=== PATIENT | male | born 1965 | race Caucasian/White ===

== ENCOUNTER → 2016-07-08 | Outpatient (CLI) | payer MEDICAID | LOC: OD 13:49 | PROVIDERS: ATTEND Physician Assistant Medical | DX: R06.02 Shortness of breath (principal) | CPT/HCPCS: 71020 ==

== ENCOUNTER 2016-09-28 20:07 | Emergency (ER) | payer MEDICARE, MEDICAID ==
[2016-09-28] MEDS ORDERED: ONDANSETRON HCL INJ/PF 4 MG/2 ML SDV IV ONE (20:49)
[2016-09-28] MEDS ORDERED: NORMAL SALINE 1000 ML 1,000 ML IV PRN ×2 (20:49→22:55)
--- NOTE | 2016-09-28 20:55 | ER Document Report ---
ED General - General Chief Complaint: Headache Stated Complaint: HEADACHE,GENERALIZED WEAKNESS Time seen by provider: 20:52 Mode of Arrival: Medic Information source: Patient TRAVEL OUTSIDE OF THE [place] IN LAST 30 DAYS: No - HPI Patient complains to provider of: headache, generalized weakness, fatigue Onset: This morning Onset/Duration: Persistent Quality of pain: Achy Severity: Mild Pain Level: 1 Associated symptoms: Body/muscle aches, Nonproductive cough, Weakness Exacerbated by: Denies Relieved by: Denies Similar symptoms previously: No Recently seen / treated by doctor: No Notes: Patient is a 51-year-old male who presents to the emergency room via EMS for complaints of generalized weakness that started approximately 30 minutes after waking up running taking this morning medications, reports feeling jittery and nervous, with diffuse body aches and malaise, as well as a sore throat with difficulty swallowing, and a headache with pressure behind his eyes that radiates to the back of his head worsens when he coughs, he reports a nonproductive cough, no chest pain or shortness of breath, no sick contacts, no recent travel - Related Data Allergies/Adverse Reactions: sumatriptan [From Imitrex] Allergy (Verified 09/28/16 20:23) tramadol [From Ultram] Allergy (Verified 09/28/16 20:23) Home Medications: Current Home Medications Amlodipine Besylate [Amlodipine Besylate] 10 mg PO DAILY 09/28/16 [History] Bupropion HCl [Wellbutrin Xl] 150 mg PO DAILY 09/28/16 [History] Buspirone HCl [Buspar 5 mg Tablet] 1 tab PO DAILY 09/28/16 [History] Citalopram Hydrobromide [Celexa 20 mg Tablet] 20 mg PO QHS 09/28/16 [History] Furosemide [Furosemide] 40 mg PO QAM 09/28/16 [History] Hydralazine HCl [Apresoline 50 mg Tablet] 50 mg PO DAILY 09/28/16 [History] Lovastatin 40 mg PO BID 09/28/16 [History] Omeprazole 40 mg PO BID 09/28/16 [History] Oxycodone HCl [Oxycontin] 20 mg PO BID 09/28/16 [History] Pregabalin [Lyrica] 150 mg PO BID 09/28/16 [History] Past Medical History - General Information source: Patient - Social History Smoking Status: Current Every Day Smoker Frequency of alcohol use: None Drug Abuse: None Family History: Reviewed & Not Pertinent - Past Medical History Cardiac Medical History: Reports: Hx Hypertension Review of Systems - Review of Systems Constitutional: See HPI EENT: No symptoms reported Cardiovascular: No symptoms reported Respiratory: See HPI Gastrointestinal: No symptoms reported Genitourinary: No symptoms reported Male Genitourinary: No symptoms reported Musculoskeletal: See HPI Skin: No symptoms reported Hematologic/Lymphatic: No symptoms reported Neurological/Psychological: See HPI -: Yes All other systems reviewed and negative Physical Exam - Vital signs Vitals: Resp BP Pulse Ox 14 135/84 H 95 09/28/16 20:19 09/28/16 20:19 09/28/16 20:19 Interpretation: Normal - General General appearance: Appears well, Alert - HEENT Head: Normocephalic, Atraumatic Eyes: Normal Pupils: PERRL Mouth/Lips: Normal Mucous membranes: Normal Pharynx: Erythema Neck: Normal - Respiratory Respiratory status: No respiratory distress Chest status: Nontender Breath sounds: Normal Chest palpation: Normal - Cardiovascular Rhythm: Regular, Tachycardia Heart sounds: Normal auscultation Murmur: No - Abdominal Inspection: Normal Distension: No distension Bowel sounds: Normal Tenderness: Tender - Epigastric Organomegaly: No organomegaly - Back Back: Normal, Nontender - Extremities General upper extremity: Normal inspection, Nontender, Normal color, Normal ROM , Normal temperature General lower extremity: Normal temperature. No: Prabhu's sign Notes: Right-sided BKA, 3 cm erythematous ulceration on the lateral portion of the stump, no active drainage, no surrounding erythema, no change in temperature, sensation is intact - Neurological Neuro grossly intact: Yes Cognition: Normal Orientation: AAOx4 [place] Coma Scale Eye Opening: Spontaneous Andrew Coma Scale Verbal: Oriented [place] Coma Scale Motor: Obeys Commands Andrew Coma Scale Total: 15 Speech: Normal Motor strength normal: LUE, RUE, LLE, RLE Sensory: Normal - Psychological Associated symptoms: Normal affect, Normal mood - Skin Skin Temperature: Warm Skin Moisture: Dry Skin Color: Normal Course - Re-evaluation Re-evalutation: 09/28/16 22:55 Patient reports his headache continues, he denies any other symptoms at present time, lab and imaging findings were discussed with him at bedside, he will be given additional IV fluids and medications for treatment of his headache, and likely discharged, patient is noted to have leukocytosis, has a productive cough , and is a smoker, symptoms otherwise consistent with likely bronchitis 09/29/16 00:08 Patient resting comfortably, reports feeling much better, headache is resolved, he will be discharged with prescriptions and advised to follow-up with his primary care provider or return if symptoms worsen, patient acknowledges understanding and agreement with this plan 09/29/16 00:12 Patient did also report to recent tick bites, therefore will be started on doxycycline for this - Vital Signs Vital signs: Temp Pulse Resp BP Pulse Ox 95 16 135/84 H 98 09/28/16 21:02 09/28/16 21:02 09/28/16 21:02 09/28/16 21:02 - Laboratory Result Diagrams: 09/28/16 20:19 09/28/16 20:19 Laboratory results interpreted by me: 09/28/16 09/28/16 20:19 20:19 WBC 11.4 H Seg Neutrophils % 84.4 H Lymphocytes % 8.4 L Absolute Neutrophils 9.7 H AST 88 H ALT 110 H Alkaline Phosphatase 158 H - Diagnostic Test Radiology reviewed: Image reviewed, Reports reviewed - EKG Interpretation by Me EKG shows normal: Sinus rhythm Rate: Normal Rhythm: NSR Discharge - Discharge Clinical Impression: Viral upper respiratory illness Tick bite Qualifiers: Encounter type: initial encounter Qualified Code(s): W57.XXXA - Bitten or stung by nonvenomous insect and other nonvenomous arthropods, initial encounter Headache Qualifiers: Headache type: unspecified Headache chronicity pattern: acute headache Intractability: not intractable Qualified Code(s): R51 - Headache Condition: Stable Disposition: HOME, SELF-CARE Instructions: Headache ([facility]), Upper Respiratory Illness ([facility]), Tick Bites ([facility]) Additional Instructions: Follow up with your primary care provider in one to 2 days. Return to the emergency room immediately if symptoms worsen or any additional concerns. Prescriptions: Doxycycline Hyclate 100 mg PO BID #20 tablet Forms: Smoking Cessation Education
[2016-09-28 20:58] LABS: ABSOLUTE BASOPHILS # (AUTO) 0.1 10^3/uL (0.0-0.2); ABSOLUTE EOSINOPHILS # (AUTO) 0.1 10^3/uL (0.0-0.6); ABSOLUTE MONOCYTES (AUTO) 0.6 10^3/uL (0.1-1.4); ABSOLUTE NEUT (AUTO) 9.7 10^3/uL (1.7-8.2); BASOPHILS % (AUTO) 0.5 % (0-2); EOSINOPHILS % (AUTO) 1.1 % (0-6); HEMATOCRIT 44.3 % (37.9-51.0); HEMOGLOBIN 15.1 g/dL (13.5-17.0); LYMPHOCYTES % (AUTO) 8.4 % (13-45); MEAN CORPUSCULAR HEMOGLOBIN 31.3 pg (27.0-33.4); MEAN CORPUSCULAR HGB CONC 34.2 g/dL (32.0-36.0); MEAN CORPUSCULAR VOLUME 91 fl (80-97); MONOCYTES % (AUTO) 5.6 % (3-13); RED BLOOD COUNT 4.84 10^6/uL (4.35-5.55); RED CELL DISTRIBUTION WIDTH 13.7 % (11.5-14.0); SEGMENTED NEUTROPHILS % (AUTO) 84.4 % (42-78); WHITE BLOOD COUNT 11.4 10^3/uL (4.0-10.5)
[2016-09-28 21:13] LABS: ALANINE AMINOTRANSFERASE 110 U/L (21-72); ALBUMIN 4.2 g/dL (3.5-5.0); ALKALINE PHOSPHATASE 158 U/L (38-126); ANION GAP 13 (5-19); ASPARTATE AMINO TRANSFERASE 88 U/L (17-59); BILIRUBIN,DIRECT 0.4 mg/dL (0.0-0.4); BILIRUBIN,TOTAL 0.7 mg/dL (0.2-1.3); BLOOD UREA NITROGEN 18 mg/dL (7-20); CALCIUM 9.5 mg/dL (8.4-10.2); CARBON DIOXIDE 29 mmol/L (22-30); CHLORIDE 103 mmol/L (98-107); CREATINE KINASE 112 U/L (55-170); CREATININE RESULT 0.94 mg/dL (0.52-1.25); GLUCOSE 88 mg/dL (75-110); MAGNESIUM 2.1 mg/dL (1.6-2.3); POTASSIUM 4.2 mmol/L (3.6-5.0); SODIUM 144.8 mmol/L (137-145); TOTAL PROTEIN 7.3 g/dL (6.3-8.2)
[2016-09-28 21:23] LABS: CREATINE KINASE MB 0.75 ng/mL (<4.55)
[2016-09-28 21:27] LABS: TROPONIN I < 0.012 ng/mL
[2016-09-28 21:33] LABS: AMORPHOUS SEDIMENT,URINE 2+ /HPF; APPEARANCE,URINE CLOUDY; BILIRUBIN,URINE NEGATIVE (NEGATIVE); GLUCOSE, URINE NEGATIVE (NEGATIVE); KETONES,URINE NEGATIVE (NEGATIVE); LEUKOCYTE ESTERASE,URINE NEGATIVE (NEGATIVE); NITRITE,URINE NEGATIVE (NEGATIVE); PROTEIN,URINE NEGATIVE (NEGATIVE); URINE SPECIFIC GRAVITY 1.014; UROBILINOGEN,URINE NEGATIVE mg/dL (<2.0)
[2016-09-28] MEDS ORDERED: DIPHENHYDRAMINE HCL 50 MG/ML VIAL IV ONE (22:55)
[2016-09-28] MEDS ORDERED: METOCLOPRAMIDE HCL INJ/PF 10 MG/2 ML SDV IV ONE (22:55)
[2016-09-28] MEDS ORDERED: MORPHINE SULFATE 10 MG/ML INJ IV ONE (22:55)
[2016-09-29 00:25] VITALS: BP 104/68
--- NOTE | 2016-09-29 10:22 | EKG REPORT ---
SEVERITY:- NORMAL ECG - SINUS RHYTHM : Confirmed by: Stu Pedraza 29-Sep-2016 10:22:37
== END 2016-09-29 00:36 | disposition home or self-care (01) ==
LOC: ER 20:07
DX: J06.9 Acute upper respiratory infection, unspecified (principal); R51 Headache; R53.1 Weakness; R05 Cough; R53.81 Other malaise; Z79.899 Other long term (current) drug therapy; F17.200 Nicotine dependence, unspecified, uncomplicated; W57.XXXA Bitten or stung by nonvenomous insect and other nonvenomous arthropods, initial encounter
CPT/HCPCS: 93005; 99285; 96361; 96374; 96375; 36415; 87070; 82553; 87880; 82550; 83735; 85025; 80053; 81001; 84484; 71010; 70450; 93010; J1200; J2765; J2270; J2405; J7030

== ENCOUNTER 2017-01-05 07:40 | Emergency (ER) | payer MEDICARE, MEDICAID ==
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
[2017-01-05] MEDS ORDERED: DIPH/PERTUSS(ACELL)/TETANUS VAC/PF 0.5 ML SYR (>=10YO) IM ONE (09:38)
[2017-01-05] MEDS ORDERED: HYDROCODONE/ACETAMINOPHEN 5-325 MG 6 TAB/DSPK PO PRN (09:38)
[2017-01-05 10:08] VITALS: BP 142/89
== END 2017-01-05 10:07 | disposition home or self-care (01) ==
LOC: ER 07:40
DX: S00.511A Abrasion of lip, initial encounter (principal); R68.84 Jaw pain; M54.2 Cervicalgia; R51 Headache; R22.0 Localized swelling, mass and lump, head; Y04.2XXA Assault by strike against or bumped into by another person, initial encounter; Y93.01 Activity, walking, marching and hiking; Y92.480 Sidewalk as the place of occurrence of the external cause; R41.3 Other amnesia; I10 Essential (primary) hypertension; F17.200 Nicotine dependence, unspecified, uncomplicated; Z79.82 Long term (current) use of aspirin; Z79.899 Other long term (current) drug therapy; Z88.6 Allergy status to analgesic agent; Z88.5 Allergy status to narcotic agent; Z23 Encounter for immunization
CPT/HCPCS: 99284; 90471; 70450; 70486; 72125; 90715; A9270

== ENCOUNTER 2017-07-07 13:27 | Emergency (ER) | payer MEDICARE, MEDICAID ==
[2017-07-07] MEDS ORDERED: MORPHINE SULFATE 10 MG/ML INJ IV ONE (13:57)
[2017-07-07] MEDS ORDERED: ONDANSETRON HCL INJ/PF 4 MG/2 ML SDV IV ONE (13:57)
[2017-07-07] MEDS ORDERED: NORMAL SALINE 1000 ML 1,000 ML IV ONE (13:57)
--- NOTE | 2017-07-07 13:58 | ER Document Report ---
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 He has not had any surgeries for any type of aneurysms. He states he was awoke in the middle the night with severe left lower quadrant abdominal pain that radiates to his back. He has had some nausea. He has had decreased appetite. He has had no bowel movements. No trouble with urination. TRAVEL OUTSIDE OF THE [place] IN LAST 30 DAYS: No - Related Data Allergies/Adverse Reactions: sumatriptan [From Imitrex] Allergy (Verified 07/07/17 13:29) tramadol [From Ultram] Allergy (Verified 07/07/17 13:29) Past Medical History - Social History Frequency of alcohol use: None Drug Abuse: None - Past Medical History Cardiac Medical History: Reports: Hx Hypercholesterolemia, Hx Hypertension Pulmonary Medical History: Reports: Hx Asthma Renal/ Medical History: Denies: Hx Peritoneal Dialysis Past Surgical History: Reports: Hx Cholecystectomy, Hx Orthopedic Surgery - Right BKA Physical Exam - Vital signs Vitals: Temp Pulse Resp BP Pulse Ox 98.2 F 83 18 190/110 H 96 07/07/17 13:44 07/07/17 13:44 07/07/17 13:44 07/07/17 13:44 07/07/17 13:44 Course - Vital Signs Vital signs: Temp Pulse Resp BP Pulse Ox 98.2 F 83 18 190/110 H 96 07/07/17 13:44 07/07/17 13:44 07/07/17 13:44 07/07/17 13:44 07/07/17 13:44
[2017-07-07] MEDS ORDERED: HYDROMORPHONE HCL INJ/PF 2 MG/ML AMPULE IV ONE (14:35)
[2017-07-07 14:50] LABS: ABSOLUTE BASOPHILS # (AUTO) 0.1 10^3/uL (0.0-0.2); ABSOLUTE LYMPHOCYTES (AUTO) 0.6 10^3/uL (0.5-4.7); ABSOLUTE MONOCYTES (AUTO) 0.8 10^3/uL (0.1-1.4); ABSOLUTE NEUT (AUTO) 9.3 10^3/uL (1.7-8.2); BASOPHILS % (AUTO) 0.9 % (0-2); EOSINOPHILS % (AUTO) 0.3 % (0-6); HEMATOCRIT 47.1 % (37.9-51.0); HEMOGLOBIN 16.6 g/dL (13.5-17.0); LYMPHOCYTES % (AUTO) 5.8 % (13-45); MEAN CORPUSCULAR HEMOGLOBIN 32.5 pg (27.0-33.4); MEAN CORPUSCULAR HGB CONC 35.3 g/dL (32.0-36.0); MEAN CORPUSCULAR VOLUME 92 fl (80-97); MONOCYTES % (AUTO) 7.2 % (3-13); PLATELET COUNT 175 10^3/uL (150-450); RED BLOOD COUNT 5.12 10^6/uL (4.35-5.55); RED CELL DISTRIBUTION WIDTH 13.5 % (11.5-14.0); SEGMENTED NEUTROPHILS % (AUTO) 85.8 % (42-78); TOTAL CELLS COUNTED % (AUTO) 100 %; WHITE BLOOD COUNT 10.9 10^3/uL (4.0-10.5)
--- NOTE | 2017-07-07 14:54 | ER Document Report ---
ED GI/ - General Chief Complaint: Abdominal Pain Stated Complaint: ABDOMINAL PAIN, BACK PAIN Time Seen by Provider: 07/07/17 13:56 Mode of Arrival: Ambulatory Notes: Patient says he is having pain in the left lower quadrant of his abdomen which awakened him from sleep this morning. It has been constant and does radiate around to the left back. He has never had this pain before. He has had kidney stones in the past, but never this severe of pain. He is nauseated but not vomiting. No diarrhea. Not constipated. Denies any fever. Not sure if he is having any blood in his urine. Patient is had cholecystectomy and no other surgical procedures. History of some heart disease with a heart attack many years ago and a cardiac cath about 15 years ago. Hypertension. Smokes 1 pack a day. TRAVEL OUTSIDE OF THE [place] IN LAST 30 DAYS: No - Related Data Allergies/Adverse Reactions: sumatriptan [From Imitrex] Allergy (Verified 07/07/17 13:29) tramadol [From Ultram] Allergy (Verified 07/07/17 13:29) Past Medical History - General Information source: Patient - Social History Smoking Status: Current Every Day Smoker - 1 pack per day Frequency of alcohol use: None Drug Abuse: None Family History: Reviewed & Not Pertinent Patient has suicidal ideation: No Patient has homicidal ideation: No - Past Medical History Cardiac Medical History: Reports: Hx Hypercholesterolemia, Hx Hypertension Pulmonary Medical History: Reports: Hx Asthma GI Medical History: Denies: Hx Diverticulitis, Hx Pancreatitis, Hx Ulcerative Colitis Past Surgical History: Reports: Hx Cholecystectomy, Hx Orthopedic Surgery - Right BKA Review of Systems - Review of Systems Notes: REVIEW OF SYSTEMS: CONSTITUTIONAL : Denies fever. EENT: Denies eye, ear, nose or mouth or throat pain or other symptoms. CARDIOVASCULAR: Denies chest pain. RESPIRATORY: Denies cough, chest congestion, or shortness of breath. GASTROINTESTINAL: See HPI GENITOURINARY: See HPI. MUSCULOSKELETAL: Denies back or neck pain. Denies joint pain or swelling. SKIN: Denies rash or skin lesions. NEUROLOGICAL: Denies LOC or altered mental status. Denies headache. Denies sensory loss or motor deficits. ALL OTHER SYSTEMS REVIEWED AND NEGATIVE. Physical Exam - Vital signs Vitals: Temp Pulse Resp BP Pulse Ox 98.2 F 83 18 190/110 H 96 07/07/17 13:44 07/07/17 13:44 07/07/17 13:44 07/07/17 13:44 07/07/17 13:44 Interpretation: Hypertensive - Notes Notes: PHYSICAL EXAMINATION: GENERAL: Well-appearing, in no acute distress. Appears uncomfortable. Blood pressure high. HEAD: Atraumatic, normocephalic. NECK: Normal range of motion, supple. LUNGS: Breath sounds clear and equal bilaterally. HEART: Regular rate and rhythm without murmurs. ABDOMEN: Soft, obese, tender in the left lower quadrant and left lateral abdomen. No tenderness to the right of the umbilicus.. No guarding or rebound. No masses. No bruits heard. BACK: No tenderness throughout entire back. EXTREMITIES: Normal range of motion without pain. Right BKA amputation. NEUROLOGICAL: Normal speech, normal gait. Normal sensory, motor, and reflex exams. Awake, alert, and oriented x3. Cranial nerves normal. SKIN: Warm, dry, no rashes. Course - Re-evaluation Re-evalutation: 07/07/17 20:[address] scan shows a 1.4 cm stone in the upper pelvic ureteral junction with moderate hydronephrosis. Patient's urine does not show any evidence of infection. White count is not significantly elevated and the patient is afebrile. Spoke with Dr. Carranza who is on-call for urology at [facility], where this patient receives most of his medical care and he felt the patient could be discharged with pain control and follow-up in the office as an outpatient. I agree with this assessment and plan and the patient was made aware. It was incidentally noted that the patient has a 5 cm abdominal aortic aneurysm without apparent symptoms at this time. He is being followed for this aneurysm by the vascular surgeons in [place]. I spoke with Dr. Hanson, who is on- call for this patient's vascular surgeon, and he says that their office will contact the patient tomorrow to set up a plan to take care of his aneurysm. Patient made aware of this plan and that he needs to be sure that they follow up with him or call them himself to arrange follow-up. 07/07/17 20:18 - Vital Signs Vital signs: Temp Pulse Resp BP Pulse Ox 97.8 F 83 20 160/100 H 92 07/07/17 20:30 07/07/17 13:44 07/07/17 20:01 07/07/17 20:01 07/07/17 20:01 - Laboratory Result Diagrams: 07/07/17 14:20 07/07/17 14:20 Laboratory results interpreted by me: 07/07/17 07/07/17 07/07/17 14:20 14:20 14:20 WBC 10.9 H Seg Neutrophils % 85.8 H Lymphocytes % 5.8 L Absolute Neutrophils 9.3 H Chloride 108 H Creatinine 1.35 H Est GFR (Non-Af Amer) 56 L Alkaline Phosphatase 131 H Urine Urobilinogen 2.0 H Discharge - Discharge Clinical Impression: Left ureteral calculus, Abdominal aortic aneurysm Condition: Stable Disposition: HOME, SELF-CARE Additional Instructions: KIDNEY STONE: You are passing or have passed a kidney stone. These stones are usually due to increased calcium or uric acid concentrations in your urine. Stones within the kidney itself are not painful. The pain occurs as the stone leaves the kidney to pass down the long tube, called the ureter, leading to the bladder. If the stone is small, it will usually pass by itself. Most patients can pass the stone at home. You will usually receive medications for pain, nausea or vomiting, and sometimes a medication to assist in passing the kidney stone. However, if the pain is very severe or if vomiting prevents you from taking oral pain medications, you may need to return for further treatment. Drink three or four quarts of fluids per day. You will be given pain medication (if needed) and urine strainers. Strain all your urine to see if the stone passes. If your doctor has asked you to bring the stone in for analysis, return with the stone once it has passed. Return if pain or vomiting become severe, if you develop a high fever, if you are unable to pass your urine, or if other unusual symptoms occur. You have a very large kidney stone which will not pass on its own. You are going to need a procedure to get that kidney stone out. I spoke with Dr. Carranza , urologist monument erector for [facility], and he said they will follow you up in their office. TORADOL INJECTION: You have been given an injection of ketorolac tromethamine (Toradol). This is an excellent, safe drug for pain control. It also has potent antiinflammatory action. You should have significant pain relief within about one hour. Toradol is not addicting and is non-sedating. It does not interfere with driving or work. Call or return if you develop itching, hives, shortness of breath, or rash. PAIN MEDICATION INJECTION: You have received an injection of a pain medication. You should experience significant pain relief within 45 minutes. This drug is a narcotic - - it will impair your judgement, slow your reaction time and make you sleepy ( as well as relieve your pain). Narcotics also can cause nausea. You should not drive, work with machinery, or perform any task requiring mental alertness until all effects of the medication are gone -- six to eight hours. Do not take any alcohol, or sedatives, and do not take any other medication without checking with your physician. ANTINAUSEA MEDICATION: You have been given a medication to suppress nausea and vomiting. This type of medication can be given as a shot, pill, or suppository. It will usually last for many hours. Pills and shots usually last six to eight hours, suppositories last about 12 hours. For the typical illness, only one or two doses of the medication may be necessary. Mild lightheadedness may occur. This type of medicine can cause drowsiness. Do not drive or operate dangerous machinery while under its influence. Do not mix with alcohol. See your doctor at once if you have muscle spasms or tightness, or uncontrollable motions (particularly of the neck, mouth, or jaw). Persistent vomiting or severe lightheadedness should also be evaluated by the physician. ORAL NARCOTIC MEDICATION: You have been given a prescription for pain control. This medication is a narcotic. It's best taken with food, as nausea can result if taken on an empty stomach. Don't operate machinery or drive within six hours of taking this medication. Do not combine this medicine with alcohol, or with any medication which can cause sedation (such as cold tablets or sleeping pills) unless you get permission from the physician. Narcotics tend to cause constipation. If possible, drink plenty of fluids and eat a diet high in fiber and fruits. Aortic Aneurysm This is a dilation of the aorta. About 1 of every 50 people develop an aortic aneurysm. The aneurysm can be dangerous if it begins to expand, or ruptures. At this time, there's no immediate danger. If an aortic aneurysm is small (less than two inches in width), we can just check the aneurysm again in a few months. Usually, we do this with an ultrasound or CT scan. If the aneurysm is large, the danger of rupture increases dramatically. Rupture is usually fatal. So large aneurysms are fixed with surgery. We'll arrange for you to see a specialist for repair of your aneurysm. Return at once if you develop abdominal pain, back pain, or lightheadedness , or if you feel a new mass in your abdomen. Your aneurysm has reached 5 cm in diameter which is the point at which you need to have something done about the aortic aneurysm. I have spoken with the vascular surgeon, , who is on-call for your doctor and he says that their office will contact you with the number you provided me in the next day or 2 to set up an appointment for you to be followed up. FOLLOW-UP CARE: If you have been referred to a physician for follow-up care, call the physician s office for an appointment as you were instructed or within the next two days. If you experience worsening or a significant change in your symptoms, notify the physician immediately or return to the Emergency Department at any time for re-evaluation. You should return if you have vomiting and cannot keep down your pain medicine, if you are not able to control your pain with the pain pills prescribed, or if you begin to run fevers. Prescriptions: Ondansetron [Zofran Odt 4 mg Tablet] 1 - 2 tab PO Q4H PRN #15 tab.rapdis PRN Reason: For Nausea/Vomiting Oxycodone HCl/Acetaminophen [Percocet 5-325 mg Tablet] 1 - 2 tab PO Q4H PRN #40 tablet PRN Reason:
[2017-07-07] MEDS ORDERED: KETOROLAC TROMETHAMINE INJ/PF 30 MG/1 ML SDV IV ONE (14:55)
[2017-07-07 14:58] LABS: AMORPHOUS SEDIMENT,URINE TRACE /HPF; APPEARANCE,URINE CLOUDY; BILIRUBIN,URINE NEGATIVE (NEGATIVE); COLOR,URINE YELLOW; GLUCOSE, URINE NEGATIVE (NEGATIVE); KETONES,URINE NEGATIVE (NEGATIVE); LEUKOCYTE ESTERASE,URINE NEGATIVE (NEGATIVE); NITRITE,URINE NEGATIVE (NEGATIVE); PROTEIN,URINE NEGATIVE (NEGATIVE); URINE SPECIFIC GRAVITY 1.017
[2017-07-07 15:08] LABS: ALANINE AMINOTRANSFERASE 41 U/L (21-72); ALBUMIN 4.2 g/dL (3.5-5.0); ALKALINE PHOSPHATASE 131 U/L (38-126); ANION GAP 7 (5-19); ASPARTATE AMINO TRANSFERASE 27 U/L (17-59); BILIRUBIN,DIRECT 0.4 mg/dL (0.0-0.4); BILIRUBIN,TOTAL 0.4 mg/dL (0.2-1.3); BLOOD UREA NITROGEN 16 mg/dL (7-20); CALCIUM 9.6 mg/dL (8.4-10.2); CARBON DIOXIDE 27 mmol/L (22-30); CHLORIDE 108 mmol/L (98-107); GLUCOSE 92 mg/dL (75-110); SODIUM 141.5 mmol/L (137-145); TOTAL PROTEIN 7.4 g/dL (6.3-8.2)
[2017-07-07] MEDS ORDERED: CEFTRIAXONE INJ 1000 MG VIAL IV ONE (17:25)
--- NOTE | 2017-07-07 18:18 | RADIOLOGY REPORT (SQ) ---
EXAM DESCRIPTION: CT ABD/PELVIS WITH IV ORAL COMPLETED DATE/TIME: 07/07/2017 5:57 pm REASON FOR STUDY: LLQ pain COMPARISON: 06/18/2009. TECHNIQUE: CT scan of the abdomen and pelvis performed with intravenous and oral contrast using chirag dhiraj scanning technique with dynamic intravenous contrast injection. Images reviewed with lung, soft t issue, and bone windows. Reconstructed coronal and sagittal MPR images reviewed. Delayed images for e valuation of the urinary system also acquired. All images stored on PACS. All CT scanners at this facility use dose modulation, iterative reconstruction, and/or weight based d osing when appropriate to reduce radiation dose to as low as reasonably achievable (ALARA). [facility]: Dose Right [facility]: CareDose [facility]: Dose Right [facility]: Teradose 4D [facility]: [employer] CONTRAST TYPE AND DOSE: contrast/concentration: Isovue 370.00 mg/ml; Total Contrast Delivered: 98.0 ml; Total Saline Delivered: 45.0 ml RENAL FUNCTION: Creatinine 1.4 RADIATION DOSE: CT Rad equipment meets quality standard of care and radiation dose reduction techniq ues were employed. CTDIvol: 16.2 - 18.2 mGy. DLP: 1861 mGy-cm.. LIMITATIONS: None. FINDINGS: LOWER CHEST: Mild basilar scarring and volume loss. LIVER: Status post cholecystectomy with minimal intrahepatic bile duct distention. Slight common bhupinder t distention as well. Otherwise normal. SPLEEN: Normal size. No focal lesions. PANCREAS: No masses. No significant calcifications. No adjacent inflammation or peripancreatic fluid collections. Pancreatic duct not dilated. GALLBLADDER: As above. ADRENAL GLANDS: No significant masses or asymmetry. RIGHT KIDNEY AND URETER: No solid masses. No significant calcification. No hydronephrosis or hydroure ter. LEFT KIDNEY AND URETER: Renal edema, enlargement and stranding with generalized hypoenhancement. The re is moderate hydronephrosis with lack of excretion due to a stone at the pelvic-ureter junction whi ch measures 1.4 cm and greatest dimension and has Hounsfield units greater than 1,300. Several addit ional smaller nonobstructing stones in the kidney. No stones along the ureter. AORTA AND VESSELS: Infrarenal abdominal aortic aneurysm measures 5 cm. This has increased in size co mpared to the prior study at which time maximal transverse dimension was just at 3 cm. Patent major arterial and venous structures. RETROPERITONEUM: No retroperitoneal adenopathy, hemorrhage or masses. BOWEL AND PERITONEAL CAVITY: No obstruction. No visualized masses. No free fluid. No inflammatory ch anges or thickening of bowel wall. APPENDIX: Normal. PELVIS: No bladder stones. No pelvic mass or fluid. ABDOMINAL WALL: No masses. No hernias. BONES: No significant or acute findings. OTHER: No other significant finding. IMPRESSION: 1. Left urinary obstruction. There is a sizable UPJ stone with moderate hydronephrosis, perinephric stranding and diminished enhancement with lack of urinary excretion. Additional nonobst ructing left stones are also present. 2. Infrarenal abdominal aortic aneurysm measures 5 cm. This h as increased in size compared to 2010. TECHNICAL DOCUMENTATION: JOB ID: [id number] Quality ID # 436: Final reports with documentation of one or more dose reduction techniques (e.g., Au tomated exposure control, adjustment of the mA and/or kV according to patient size, use of iterative reconstruction technique) 2010 [email or web address]- All Rights Reserved
[2017-07-07] MEDS ORDERED: CEFTRIAXONE SODIUM 1,000 MG in NORMAL SALINE 50 ML IV ONE (20:00)
[2017-07-07 20:30] VITALS: BP 160/100
== END 2017-07-07 20:35 | disposition home or self-care (01) ==
LOC: ER 13:27
DX: I71.4 Abdominal aortic aneurysm, without rupture (principal); N20.1 Calculus of ureter; M54.9 Dorsalgia, unspecified; R10.32 Left lower quadrant pain; R11.0 Nausea; Z90.49 Acquired absence of other specified parts of digestive tract; F17.200 Nicotine dependence, unspecified, uncomplicated
CPT/HCPCS: 99284; 96361; 96374; 96375; 36415; 83690; 85025; 80053; 81001; 74177; J1885; J1170; J2405; J7030

== ENCOUNTER 2017-07-29 19:56 | Emergency (ER) | payer MEDICARE, MEDICAID ==
[2017-07-29 21:08] LABS: ABSOLUTE BASOPHILS # (AUTO) 0.2 10^3/uL (0.0-0.2); ABSOLUTE EOSINOPHILS # (AUTO) 0.2 10^3/uL (0.0-0.6); ABSOLUTE LYMPHOCYTES (AUTO) 1.7 10^3/uL (0.5-4.7); ABSOLUTE MONOCYTES (AUTO) 0.9 10^3/uL (0.1-1.4); ABSOLUTE NEUT (AUTO) 9.8 10^3/uL (1.7-8.2); BASOPHILS % (AUTO) 1.3 % (0-2); EOSINOPHILS % (AUTO) 1.7 % (0-6); HEMATOCRIT 50.6 % (37.9-51.0); HEMOGLOBIN 17.8 g/dL (13.5-17.0); LYMPHOCYTES % (AUTO) 13.2 % (13-45); MEAN CORPUSCULAR HEMOGLOBIN 32.3 pg (27.0-33.4); MEAN CORPUSCULAR HGB CONC 35.1 g/dL (32.0-36.0); MEAN CORPUSCULAR VOLUME 92 fl (80-97); MONOCYTES % (AUTO) 7.3 % (3-13); PLATELET COUNT 233 10^3/uL (150-450); RED CELL DISTRIBUTION WIDTH 13.8 % (11.5-14.0); SEGMENTED NEUTROPHILS % (AUTO) 76.5 % (42-78); TOTAL CELLS COUNTED % (AUTO) 100 %; WHITE BLOOD COUNT 12.8 10^3/uL (4.0-10.5)
[2017-07-29 21:19] LABS: ANION GAP 13 (5-19); BLOOD UREA NITROGEN 28 mg/dL (7-20); CALCIUM 9.7 mg/dL (8.4-10.2); CARBON DIOXIDE 27 mmol/L (22-30); CHLORIDE 100 mmol/L (98-107); GLUCOSE 120 mg/dL (75-110); POTASSIUM 3.7 mmol/L (3.6-5.0); SODIUM 139.7 mmol/L (137-145)
--- NOTE | 2017-07-29 21:38 | RADIOLOGY REPORT (SQ) ---
EXAM DESCRIPTION: CT ABD/PELVIS NO ORAL OR IV COMPLETED DATE/TIME: 07/29/2017 9:02 pm REASON FOR STUDY: flank pain COMPARISON: 07/07/2017 TECHNIQUE: CT scan of the abdomen and pelvis performed without intravenous or oral contrast. Images reviewed with lung, soft tissue, and bone windows. Reconstructed coronal and sagittal MPR images revi ewed. All images stored on PACS. All CT scanners at this facility use dose modulation, iterative reconstruction, and/or weight based d osing when appropriate to reduce radiation dose to as low as reasonably achievable (ALARA). [facility]: Dose Right [facility]: CareDose [facility]: Dose Right [facility]: Teradose 4D [facility]: [employer] RADIATION DOSE: CT Rad equipment meets quality standard of care and radiation dose reduction techniq ues were employed. CTDIvol: 11.7 mGy. DLP: 639 mGy-cm.mGy. LIMITATIONS: None. FINDINGS: LOWER CHEST: No significant findings. No nodules or infiltrates. NON-CONTRASTED LIVER, SPLEEN, ADRENALS: Evaluation limited by lack of IV contrast. No identified sign ificant masses. PANCREAS: No masses. No peripancreatic inflammatory changes. GALLBLADDER: Surgically absent. RIGHT KIDNEY AND URETER: No suspicious masses. Assessment limited by lack of IV contrast. No signif icant calcifications. No hydronephrosis or hydroureter. LEFT KIDNEY AND URETER: No suspicious masses. Assessment limited by lack of IV contrast. 1.1 cm dhiraj culus of the UP junction. Nonobstructive. Inferior calculus lower pole calyx. Improvement in the p erinephric stranding and hydronephrosis. No distal hydroureter. AORTA AND RETROPERITONEUM: 5 cm infrarenal abdominal aortic aneurysm. Unchanged over the last 7 days . BOWEL AND PERITONEAL CAVITY: No obvious masses or inflammatory changes. No free fluid. APPENDIX: Normal. PELVIS, BLADDER, AND ABDOMINAL WALL:No abnormal masses. No free fluid. Bladder normal. BONES: No significant findings. OTHER: No other significant finding. IMPRESSION: UPJ calculus on the left is still present but now nonobstructive. Left hydronephrosis a nd perinephric stranding. Lower pole left calculus. 5 cm abdominal aortic aneurysm stable from exam 7 days prior. COMMENT: Recommend vascular consultation and follow-up every 6 months. For the aneurysm. J Vasc Surg 2009 Oct;50(4 Suppl):S2-49. Quality ID # 436: Final reports with documentation of one or more dose reduction techniques (e.g., Au tomated exposure control, adjustment of the mA and/or kV according to patient size, use of iterative reconstruction technique) TECHNICAL DOCUMENTATION: JOB ID: [id number] [employer]- All Rights Reserved Reading location - IP/workstation name: [email or web address]
[2017-07-29 21:42] LABS: APPEARANCE,URINE SLIGHTLY-CLOUDY; BILIRUBIN,URINE NEGATIVE (NEGATIVE); COLOR,URINE YELLOW; GLUCOSE, URINE NEGATIVE (NEGATIVE); KETONES,URINE NEGATIVE (NEGATIVE); LEUKOCYTE ESTERASE,URINE TRACE (NEGATIVE); NITRITE,URINE NEGATIVE (NEGATIVE); PROTEIN,URINE 30 mg/dL (NEGATIVE); URINE SPECIFIC GRAVITY 1.024
[2017-07-29] MEDS ORDERED: NORMAL SALINE 1000 ML 1,000 ML IV ONE (21:50)
[2017-07-29] MEDS ORDERED: HYDROMORPHONE HCL INJ/PF 2 MG/ML AMPULE IV ONE (21:50)
[2017-07-29] MEDS ORDERED: KETOROLAC TROMETHAMINE INJ/PF 30 MG/1 ML SDV IV ONE (21:50)
[2017-07-29 21:58] VITALS: BP 153/102
[2017-07-29] MEDS ORDERED: TAMSULOSIN HCL 0.4 MG CAP.SR.24H PO ONE (22:20)
[2017-07-29] MEDS ORDERED: HYDROCODONE/ACETAMINOPHEN 5-325 MG (6 TAB/ER DISP) PO PRN (22:20)
[2017-07-29] MEDS ORDERED: ONDANSETRON ODT 4 MG TAB (6 TAB/ER DISP) PO PRN (22:20)
[2017-07-29] MEDS ORDERED: CEPHALEXIN 500 MG CAPSULE PO ONE (22:24)
--- NOTE | 2017-07-29 22:26 | ER Document Report ---
ED General - General Chief Complaint: R side pain/ abdominal pain/ HTN Stated Complaint: RIGHT SIDE PAIN Time Seen by Provider: 07/29/17 20:48 Notes: Patient is a 52-year-old male with a past medical history of hypertension, a known abdominal aortic aneurysm, and kidney stones who presents with left sided flank tenderness. Patient states he has a severe, constant, stabbing pain to the left flank that radiates to the left lower abdomen. He notes that it is been associated with vomiting and nausea. He also notes that every time he tries to urinate he feels like he has incomplete emptying as well as dysuria. Nothing seems to improve or worsen his symptoms. He was seen in the emergency department for similar symptoms approximately 3 weeks ago found to have a left- sided kidney stone with associated hydronephrosis. He states that when he had pain medications they did help but he has since run out. He has a scheduled follow-up appointment with urology on 06 August. He has not had any fever or constitutional symptoms. TRAVEL OUTSIDE OF THE [place] IN LAST 30 DAYS: No - Related Data Allergies/Adverse Reactions: sumatriptan [From Imitrex] Allergy (Verified 07/07/17 13:29) tramadol [From Ultram] Allergy (Verified 07/07/17 13:29) Past Medical History - General Information source: Patient - Social History Smoking Status: Current Every Day Smoker Frequency of alcohol use: Occasional Drug Abuse: None Lives with: Family Family History: Reviewed & Not Pertinent - Past Medical History Cardiac Medical History: Reports: Hx Hypercholesterolemia, Hx Hypertension Pulmonary Medical History: Reports: Hx Asthma Renal/ Medical History: Denies: Hx Peritoneal Dialysis GI Medical History: Denies: Hx Diverticulitis, Hx Pancreatitis, Hx Ulcerative Colitis Past Surgical History: Reports: Hx Cholecystectomy, Hx Orthopedic Surgery - Right BKA Review of Systems - Review of Systems Notes: Constitutional: Negative for fever. HENT: Negative for sore throat. Eyes: Negative for visual changes. Cardiovascular: Negative for chest pain. Respiratory: Negative for shortness of breath. Gastrointestinal: Positive for flank tenderness and vomiting Genitourinary: Positive for dysuria. Musculoskeletal: Negative for back pain. Skin: Negative for rash. Neurological: Negative for headaches, weakness or numbness. 10 point ROS negative except as marked above and in HPI. Physical Exam - Vital signs Vitals: Temp Pulse Resp BP Pulse Ox 98.5 F 108 H 18 173/100 H 96 07/29/17 20:05 07/29/17 20:05 07/29/17 20:05 07/29/17 20:05 07/29/17 20:05 Interpretation: Tachycardic Notes: PHYSICAL EXAMINATION: GENERAL appears moderately uncomfortable but in no acute distress HEAD: Atraumatic, normocephalic. EYES: Pupils equal round and reactive to light, extraocular movements intact, sclera anicteric, conjunctiva are normal. ENT: nares patent, oropharynx clear without exudates. Dry mucous membranes. NECK: Normal range of motion, supple without lymphadenopathy LUNGS: Breath sounds clear to auscultation bilaterally and equal. No wheezes rales or rhonchi. HEART: Regular rate and rhythm without murmurs ABDOMEN: Soft, nontender, normoactive bowel sounds. No guarding, no rebound. No masses appreciated. Left-sided CVA tenderness. EXTREMITIES: Normal range of motion, no pitting or edema. No cyanosis. NEUROLOGICAL: No focal neurological deficits. Moves all extremities spontaneously and on command. PSYCH: Normal mood, normal affect. SKIN: Warm, Dry, normal turgor, no rashes or lesions noted. Course - Re-evaluation Re-evalutation: 07/29/17 22:20 Presents with findings consistent with acute nephrolithiasis. Patient has a known history of a left-sided nephrolithiasis confirmed on prior CT scan. Repeat CT today shows that the stone has hardly moved although it is no longer obstructing. Patient does have focal left-sided flank tenderness. Urinalysis does show hematuria. Laboratory otherwise unremarkable. Pain was able to be controlled here in the emergency department. Patient is tolerating oral intake. Clinical history is not consistent with an acute abdominal aneurysm rupture or dissection, IA, or pulmonary embolus. CT scan does show stable aneurysm unchanged and patient is scheduled for repair next week. Urinalysis does not show findings consistent with an infected stonealthough given 10 white blood cells in the urine I will culture and empirically begin to treat. Vitals have remained within normal limits. Patient is scheduled follow-up with urology in the seventh. He will be sent home with a urine strainer, tamsulosin , pain control and nausea control. At this time will discharge with return precautions and follow-up recommendations. Verbal discharge instructions given a the bedside and opportunity for questions given. Medication warnings reviewed. Patient is in agreement with this plan and has verbalized understanding of return precautions and the need for primary care follow-up in the next 24-72 hours. - Vital Signs Vital signs: Temp Pulse Resp BP Pulse Ox 98.5 F 108 H 13 153/102 H 95 07/29/17 20:05 07/29/17 20:05 07/29/17 21:03 07/29/17 20:51 07/29/17 21:03 - Laboratory Result Diagrams: 07/29/17 20:50 07/29/17 20:50 Laboratory results interpreted by me: 07/29/17 07/29/17 07/29/17 20:50 20:50 21:29 WBC 12.8 H Hgb 17.8 H Absolute Neutrophils 9.8 H BUN 28 H Glucose 120 H Urine Protein 30 H Urine Blood LARGE H Urine Urobilinogen 2.0 H Ur Leukocyte Esterase TRACE H - Diagnostic Test Radiology reviewed: Reports reviewed Discharge - Discharge Clinical Impression: Kidney stone on left side, Left flank pain Nausea and vomiting Qualifiers: Vomiting type: unspecified Vomiting Intractability: non-intractable Qualified Code(s): R11.2 - Nausea with vomiting, unspecified Condition: Good Disposition: HOME, SELF-CARE Additional Instructions: Your symptoms should improve over the course of the next one week. If you continue to have pain for greater than one week or your pain is not controlled with the pain medications that you have been sent home with you need to return to the emergency department. Please also return if you develop fever, persistent vomiting, or any other symptoms that are concerning to you. You should take ibuprofen 600 mg every 6 hours and use the oral morphine as prescribed only for pain not controlled by ibuprofen. You are also been sent home with a medication called Flomax to help pass the stone. You've been given Zofran to assist with nausea. Please follow-up with urology in the next 2-3 days. Prescriptions: Morphine Sulfate [Morphine Ir 15 mg Tablet] 15 mg PO Q4HP PRN #12 tablet PRN Reason: Ondansetron [Zofran Odt 4 mg Tablet] 1 - 2 tab PO Q4H PRN #15 tab.rapdis PRN Reason: For Nausea/Vomiting Tamsulosin HCl [Flomax 0.4 mg Cap.sr] 0.4 mg PO DAILY #7 cap.sr.24h
== END 2017-07-29 22:40 | disposition home or self-care (01) ==
LOC: ER 19:56
DX: N13.2 Hydronephrosis with renal and ureteral calculous obstruction (principal); I10 Essential (primary) hypertension; I71.4 Abdominal aortic aneurysm, without rupture; R11.2 Nausea with vomiting, unspecified; J45.909 Unspecified asthma, uncomplicated; F17.200 Nicotine dependence, unspecified, uncomplicated; Z88.6 Allergy status to analgesic agent; Z88.5 Allergy status to narcotic agent; R31.9 Hematuria, unspecified
CPT/HCPCS: 99284; 96361; 96374; 96375; 36415; 87086; 85025; 80048; 81001; 74176; A9270 ×4; J1885; J1170; J7030

== ENCOUNTER 2017-08-20 17:43 | Emergency (ER) | payer MEDICARE, MEDICAID ==
--- NOTE | 2017-08-20 18:46 | ER Document Report ---
ED Medical Screen (RME) - General Chief Complaint: Abdominal Pain Stated Complaint: ABDOMINAL PAIN Time Seen by Provider: 08/20/17 18:45 Notes: Urinary stent removed from the left ureter today. He states about an hour later he started develop severe left lower quadrant abdominal pain that is doubling him over. TRAVEL OUTSIDE OF THE [place] IN LAST 30 DAYS: No - Related Data Allergies/Adverse Reactions: sumatriptan [From Imitrex] Allergy (Verified 07/07/17 13:29) tramadol [From Ultram] Allergy (Verified 07/07/17 13:29) Past Medical History - Past Medical History Cardiac Medical History: Reports: Hx Hypercholesterolemia, Hx Hypertension Pulmonary Medical History: Reports: Hx Asthma Renal/ Medical History: Denies: Hx Peritoneal Dialysis GI Medical History: Denies: Hx Diverticulitis, Hx Pancreatitis, Hx Ulcerative Colitis Past Surgical History: Reports: Hx Cholecystectomy, Hx Orthopedic Surgery - Right BKA Physical Exam - Vital signs Vitals: Temp Pulse Resp BP Pulse Ox 99.2 F 83 20 146/93 H 94 08/20/17 18:02 08/20/17 18:02 08/20/17 18:02 08/20/17 18:02 08/20/17 18:02 Course - Vital Signs Vital signs: Temp Pulse Resp BP Pulse Ox 99.2 F 83 20 146/93 H 94 08/20/17 18:02 08/20/17 18:02 08/20/17 18:02 08/20/17 18:02 08/20/17 18:02
[2017-08-20] MEDS ORDERED: MORPHINE SULFATE 10 MG/ML INJ IV ONE (18:49)
[2017-08-20] MEDS ORDERED: ONDANSETRON HCL INJ/PF 4 MG/2 ML SDV IV ONE (18:49)
[2017-08-20 19:08] LABS: ABSOLUTE BASOPHILS # (AUTO) 0.2 10^3/uL (0.0-0.2); ABSOLUTE EOSINOPHILS # (AUTO) 0.3 10^3/uL (0.0-0.6); ABSOLUTE LYMPHOCYTES (AUTO) 1.8 10^3/uL (0.5-4.7); ABSOLUTE MONOCYTES (AUTO) 1.1 10^3/uL (0.1-1.4); ABSOLUTE NEUT (AUTO) 13.1 10^3/uL (1.7-8.2); BASOPHILS % (AUTO) 1.2 % (0-2); EOSINOPHILS % (AUTO) 1.7 % (0-6); HEMATOCRIT 48.3 % (37.9-51.0); HEMOGLOBIN 16.4 g/dL (13.5-17.0); LYMPHOCYTES % (AUTO) 10.8 % (13-45); MEAN CORPUSCULAR HEMOGLOBIN 31.8 pg (27.0-33.4); MEAN CORPUSCULAR VOLUME 94 fl (80-97); MONOCYTES % (AUTO) 6.5 % (3-13); PLATELET COUNT 219 10^3/uL (150-450); RED BLOOD COUNT 5.16 10^6/uL (4.35-5.55); SEGMENTED NEUTROPHILS % (AUTO) 79.8 % (42-78); TOTAL CELLS COUNTED % (AUTO) 100 %; WHITE BLOOD COUNT 16.4 10^3/uL (4.0-10.5)
[2017-08-20 19:20] LABS: APPEARANCE,URINE CLOUDY; BILIRUBIN,URINE NEGATIVE (NEGATIVE); COLOR,URINE YELLOW; GLUCOSE, URINE NEGATIVE (NEGATIVE); KETONES,URINE NEGATIVE (NEGATIVE); LEUKOCYTE ESTERASE,URINE MODERATE (NEGATIVE); NITRITE,URINE NEGATIVE (NEGATIVE); PROTEIN,URINE 100 mg/dL (NEGATIVE); URINE SPECIFIC GRAVITY 1.013; UROBILINOGEN,URINE NEGATIVE mg/dL (<2.0)
[2017-08-20 19:35] LABS: ALANINE AMINOTRANSFERASE 46 U/L (21-72); ALBUMIN 4.3 g/dL (3.5-5.0); ALKALINE PHOSPHATASE 119 U/L (38-126); ANION GAP 10 (5-19); ASPARTATE AMINO TRANSFERASE 26 U/L (17-59); BILIRUBIN,DIRECT 0.6 mg/dL (0.0-0.4); BILIRUBIN,TOTAL 0.6 mg/dL (0.2-1.3); BLOOD UREA NITROGEN 18 mg/dL (7-20); CALCIUM 9.9 mg/dL (8.4-10.2); CARBON DIOXIDE 28 mmol/L (22-30); CHLORIDE 105 mmol/L (98-107); GLUCOSE 108 mg/dL (75-110); POTASSIUM 4.2 mmol/L (3.6-5.0); SODIUM 142.9 mmol/L (137-145); TOTAL PROTEIN 7.5 g/dL (6.3-8.2)
--- NOTE | 2017-08-20 20:43 | ER Document Report ---
ED GI/ - General Chief Complaint: Abdominal Pain Stated Complaint: ABDOMINAL PAIN Time Seen by Provider: 08/20/17 18:45 Mode of Arrival: Ambulatory Information source: Patient TRAVEL OUTSIDE OF THE [place] IN LAST 30 DAYS: No - HPI Patient complains to provider of: Abdominal pain Notes: 08/20/17 20:41 Patient is here with complaints of left-sided abdominal pain. The patient has been seen in the ED a few times over the last few months. He was noted to have an extremely large left-sided kidney stone. He saw Dr. Ruiz, urology who placed a left ureteral stent last week and removed his kidney stones. He had the stent removed this morning and started having some severe left sided lower abdominal pain. The pain had him doubled over in pain. He was given pain medications here in the emergency department, and states that he feels significantly better at this time. He has had nausea, but denies any vomiting or diarrhea. He has noted blood in his urine. He denies any chest pain or shortness of breath. Nothing in particular makes the pain better or worse. He is not currently on antibiotics. He denies fever. He denies any other complaints at this time. - Related Data Allergies/Adverse Reactions: sumatriptan [From Imitrex] Allergy (Verified 07/07/17 13:29) tramadol [From Ultram] Allergy (Verified 07/07/17 13:29) Past Medical History - Social History Smoking Status: Current Every Day Smoker Frequency of alcohol use: None Drug Abuse: None Family History: Reviewed & Not Pertinent Patient has suicidal ideation: No Patient has homicidal ideation: No - Past Medical History Cardiac Medical History: Reports: Hx Hypercholesterolemia, Hx Hypertension Pulmonary Medical History: Reports: Hx Asthma, Hx COPD Renal/ Medical History: Reports: Hx Kidney Stones - stent. Denies: Hx Peritoneal Dialysis GI Medical History: Denies: Hx Diverticulitis, Hx Pancreatitis, Hx Ulcerative Colitis Past Surgical History: Reports: Hx Cholecystectomy, Hx Orthopedic Surgery - Right BKA Review of Systems - Review of Systems -: Yes All other systems reviewed and negative Physical Exam - Vital signs Vitals: Temp Pulse Resp BP Pulse Ox 99.2 F 83 20 146/93 H 94 08/20/17 18:02 08/20/17 18:02 08/20/17 18:02 08/20/17 18:02 08/20/17 18:02 - Notes Notes: GENERAL: alert, cooperative, nontoxic, no distress. HEAD: normocephalic, atraumatic EYES: conjunctiva pink without discharge, no external redness or swelling. EARS: no external swelling, no external redness NOSE: atraumatic, no external swelling MOUTH/THROAT: mucous membranes moist and pink, posterior pharynx without erythema, swelling, exudate. No trismus or drooling. NECK: soft, supple, full range of motion, no meningismus. CHEST: no distress, lungs clear and equal throughout. No wheezing, rales, rhonchi. CARDIAC: regular rate and rhythm, no murmur, normal capillary refill, normal pulses. No peripheral edema noted. ABDOMEN: Soft, tender to palpation of the left lower quadrant. Mild voluntary guarding. No rebound tenderness. No mass. BACK: full range of motion, mild left CVA tenderness. EXTREMITIES: full range of motion of all extremities. No redness, no swelling. NEURO: alert and oriented x 3, no focal deficits, full range of motion of all extremities. PYSCH: appropriate mood, affect. Patient is cooperative. SKIN: pink, warm, dry, no rash. Course - Re-evaluation Re-evalutation: Patient is nontoxic appearing with stable vitals. The patient had a large left kidney stone which he had a stent placed in [facility] by Dr. Ruiz last week. He had the stent removed today. Earlier during the day he had sudden onset left lower abdominal pain which doubled him over in pain. He is feeling significantly better now. He had nausea but no vomiting. On exam he has minimal left-sided lower abdominal tenderness. Mild left CVA tenderness. He is afebrile and his vitals are stable. White blood cell count is 16. Complete met about panel is unremarkable. Urinalysis shows large blood, large leukocyte esterase with lots of white and red blood cells. Patient does not appear to be septic toxically ill. He had a CT of the abdomen and pelvis which shows hydronephrosis with no obstructive stone. Stranding around the left kidney. Posterior lateral left side of the bladder is thickened. Fatty infiltration of the liver. I discussed the case with Dr. Steele the revenue officer on-call for Dr. Ruiz's office. He was given all of the information regarding this patient' s ER visit. He believes that the patient either had ureteral spasm or potentially a clot causing a small obstruction which was a likely source of his pain. Since the patient's pain is under control at this time and he is nontoxic appearing he believes the patient can be discharged home. He did recommend antibiotics due to the elevated white count and the fact that he recently had the stent placed. I will discharge the patient home with Bactrim and Bradgate. Follow-up with his urologist at the next available appointment. Follow-up sooner for increasing pain, high fever, persistent vomiting, or for any further concerns. The patient is noted to have elevated blood pressure during today's emergency department visit. The patient was informed of this finding. The patient was instructed that this may be related to pre-hypertension and requires further evaluation with a primary care provider. The patient has no hypertensive symptoms at this time. The patient's emergency department workup and current diagnosis were explained to the patient and or family. Follow-up instructions were provided. Medications if prescribed were discussed. Instructions for when to return to the emergency department including specific worrisome symptoms were discussed with the patient and/or family. - Vital Signs Vital signs: Temp Pulse Resp BP Pulse Ox 99.2 F 83 20 146/93 H 94 08/20/17 18:02 08/20/17 18:02 08/20/17 18:02 08/20/17 18:02 08/20/17 18:02 - Laboratory Result Diagrams: 08/20/17 18:56 08/20/17 18:56 Laboratory results interpreted by me: 08/20/17 08/20/17 08/20/17 18:56 18:56 18:56 WBC 16.4 H Seg Neutrophils % 79.8 H Lymphocytes % 10.8 L Absolute Neutrophils 13.1 H Direct Bilirubin 0.6 H Urine Protein 100 H Urine Blood LARGE H Ur Leukocyte Esterase MODERATE H - Diagnostic Test Radiology reviewed: Image reviewed, Reports reviewed - CT abdomen and pelvis shows left hydronephrosis and hydroureter with stranding around the left kidney. No obstructive stone. Thickening of the left posterior bladder wall. Fatty infiltration of the liver. Discharge - Discharge Clinical Impression: Left flank pain, Left sided abdominal pain Condition: Stable Disposition: HOME, SELF-CARE Instructions: Abdominal Pain ([facility]), Kidney Stone ([facility]) Additional Instructions: Take medication as prescribed. Drink lots of fluids. Follow-up with your urologist at the next available appointment. Follow-up sooner for increasing pain, fever, persistent vomiting, or for any further concerns. The medication you were prescribed today may cause drowsiness. Do not drive or operate heavy machinery while taking this medication. Your blood pressure was elevated during today's visit. Have this rechecked with your doctor. Prescriptions: Hydrocodone/Acetaminophen [Bradgate 5-325 mg Tablet] 2 tab PO Q6H PRN #6 tab PRN Reason: Sulfamethoxazole/Trimethoprim [Bactrim Ds Tablet] 1 each PO BID #14 tablet Forms: Elevated Blood Pressure, Smoking Cessation Education Referrals: DAYDAY CHANG MD [Primary Care Provider] - Follow up as needed HANSEL RUIZ MD [NO LOCAL MD] - Follow up as needed
--- NOTE | 2017-08-20 20:51 | RADIOLOGY REPORT (SQ) ---
EXAM DESCRIPTION: CT ABD/PELVIS WITH IV ONLY COMPLETED DATE/TIME: 08/20/2017 8:32 pm REASON FOR STUDY: LLQ pain COMPARISON: 07/29/2017 TECHNIQUE: CT scan of the abdomen and pelvis performed using helical scanning technique with dynamic intravenous contrast injection. No oral contrast. Images reviewed with lung, soft tissue, and bone windows. Reconstructed coronal and sagittal MPR images reviewed. Delayed images for evaluation of the urinary system also acquired. All images stored on PACS. All CT scanners at this facility use dose modulation, iterative reconstruction, and/or weight based d osing when appropriate to reduce radiation dose to as low as reasonably achievable (ALARA). [facility]: Dose Right [facility]: CareDose [facility]: Dose Right [facility]: Teradose 4D [facility]: [employer] CONTRAST TYPE AND DOSE: contrast/concentration: Isovue 370.00 mg/ml; Total Contrast Delivered: 100.0 ml; Total Saline Delivered: 50.0 ml RENAL FUNCTION: BUN 18 creatinine 0.92 RADIATION DOSE: CT Rad equipment meets quality standard of care and radiation dose reduction techniq ues were employed. CTDIvol: 15.8 - 17.8 mGy. DLP: 1766 mGy-cm.. LIMITATIONS: None. FINDINGS: LOWER CHEST: No significant findings. No nodules or infiltrates. LIVER: There are some areas of slightly decreased attenuation in the liver. No definable mass is pre sent SPLEEN: Normal size. No focal lesions. PANCREAS: No masses. No significant calcifications. No adjacent inflammation or peripancreatic fluid collections. Pancreatic duct not dilated. GALLBLADDER: Surgically absent. ADRENAL GLANDS: No significant masses or asymmetry. RIGHT KIDNEY AND URETER: No solid masses. No significant calcifications. No hydronephrosis or hyd roureter. LEFT KIDNEY AND URETER: No solid masses. There is perinephric stranding. There are couple of nonob structing intrarenal calculi in the lower calices. There is not appear to be significant hydronephr osis. There is slight ureteral prominence. No obstructing calculus is seen. AORTA AND VESSELS: Once again there is a 48 mm infrarenal aneurysm of the abdominal aorta. RETROPERITONEUM: No retroperitoneal adenopathy, hemorrhage or masses. BOWEL AND PERITONEAL CAVITY: No masses or inflammatory changes. No free fluid or peritoneal masses. APPENDIX: Normal. PELVIS: There is asymmetrical thickening of bladder wall posterolaterally on the left. ABDOMINAL WALL: No masses. No hernias. BONES: No significant or acute findings. OTHER: No other significant finding. IMPRESSION: 1. Left ureteral prominence with no obstructing calculus seen. 2. There is asymmetrical thickening of the bladder wall posterolaterally on the left. 3. Nonobstructing left intrarenal calculi. Perinephric stranding around the left kidney. 4. There appears to be some degree of fatty infiltration of the liver. TECHNICAL DOCUMENTATION: JOB ID: [id number] Quality ID # [id number]: Final reports with documentation of one or more dose reduction techniques (e.g., Au tomated exposure control, adjustment of the mA and/or kV according to patient size, use of iterative reconstruction technique) 2010 [employer]- All Rights Reserved Reading location - IP/workstation name: [email or web address]
[2017-08-20] MEDS ORDERED: SULFAMETHOXAZOLE/TRIMETHOPRIM 800-160 MG TABLET PO ONE (21:29)
[2017-08-20] MEDS ORDERED: HYDROCODONE/ACETAMINOPHEN 5-325 MG (6 TAB/ER DISP) PO PRN (21:29)
[2017-08-20 21:55] VITALS: BP 130/95
== END 2017-08-20 21:55 | disposition home or self-care (01) ==
LOC: ER 17:43
DX: N13.30 Unspecified hydronephrosis (principal); K76.0 Fatty (change of) liver, not elsewhere classified; R10.32 Left lower quadrant pain; R11.0 Nausea; R31.0 Gross hematuria; I10 Essential (primary) hypertension; J44.9 Chronic obstructive pulmonary disease, unspecified; F17.200 Nicotine dependence, unspecified, uncomplicated; Z98.890 Other specified postprocedural states; Z88.6 Allergy status to analgesic agent; Z88.5 Allergy status to narcotic agent
CPT/HCPCS: 99284; 96374; 96375; 36415; 85025; 80053; 81001; 74177; J2270; J2405; A9270 ×2

== ENCOUNTER → 2017-09-06 | Outpatient (CLI) | payer MEDICARE, MEDICAID ==
--- NOTE | 2017-09-06 14:19 | RADIOLOGY REPORT (SQ) ---
EXAM DESCRIPTION: CT ABD/PELVIS NO ORAL OR IV COMPLETED DATE/TIME: 09/06/2017 10:07 am REASON FOR STUDY: CALCULUS OF KIDNEY N20.0 CALCULUS OF KIDNEY COMPARISON: 07/29/2017 TECHNIQUE: CT scan of the abdomen and pelvis performed without intravenous or oral contrast. Images reviewed with lung, soft tissue, and bone windows. Reconstructed coronal and sagittal MPR images revi ewed. All images stored on PACS. All CT scanners at this facility use dose modulation, iterative reconstruction, and/or weight based d osing when appropriate to reduce radiation dose to as low as reasonably achievable (ALARA). [facility]: Dose Right [facility]: CareDose [facility]: Dose Right [facility]: Teradose 4D [facility]: [employer] RADIATION DOSE: CT Rad equipment meets quality standard of care and radiation dose reduction techniq ues were employed. CTDIvol: 15.4 mGy. DLP: 798 mGy-cm.mGy. LIMITATIONS: None. FINDINGS: LOWER CHEST: No significant findings. No nodules or infiltrates. NON-CONTRASTED LIVER, SPLEEN, ADRENALS: Evaluation limited by lack of IV contrast. No identified sign ificant masses. PANCREAS: No masses. No peripancreatic inflammatory changes. GALLBLADDER: Surgically absent. RIGHT KIDNEY AND URETER: No suspicious masses. Assessment limited by lack of IV contrast. No signif icant calcifications. No hydronephrosis or hydroureter. LEFT KIDNEY AND URETER: No suspicious masses. Assessment limited by lack of IV contrast. Renal calc anabela measuring up to about 3 mm. No hydronephrosis or hydroureter. AORTA AND RETROPERITONEUM: Interval placement of aortic iliac endograft. Maximum sac diameter about 4.7 cm. BOWEL AND PERITONEAL CAVITY: No obvious masses or inflammatory changes. No free fluid. APPENDIX: Normal. PELVIS, BLADDER, AND ABDOMINAL WALL:No abnormal masses. No free fluid. Bladder normal. BONES: No significant findings. OTHER: No other significant finding. IMPRESSION: Nonobstructing left renal calculi. Interval placement of aortic endograft. No acute fi ndings. COMMENT: Quality ID # [id number]: Final reports with documentation of one or more dose reduction techniques (e.g., Automated exposure control, adjustment of the mA and/or kV according to patient size, use of iterative reconstruction technique) TECHNICAL DOCUMENTATION: JOB ID: [id number]- All Rights Reserved Reading location - IP/workstation name: [email or web address]
== END ==
LOC: RAD 09:50
PROVIDERS: ATTEND Urology
DX: N20.0 Calculus of kidney (principal)
CPT/HCPCS: 74176

== ENCOUNTER 2017-10-15 12:12 | Emergency (ER) | payer MEDICAID, MEDICARE ==
--- NOTE | 2017-10-15 13:39 | ER Document Report ---
ED Extremity Problem, Lower - General Chief Complaint: Leg Pain Stated Complaint: FOOT PAIN Time Seen by Provider: 10/15/17 13:25 Notes: Patient is a 52-year-old male complaining of pain and swelling to his left knee and foot and left jaw. Patient reports that his left knee gives out occasionally and he fell several times yesterday. He is unsure if he hit his head, but his left jaw is hurting. denies any LOC, no headache. Patient is a right below the knee amputation TRAVEL OUTSIDE OF THE [place] IN LAST 30 DAYS: No - HPI Patient complains to provider of: Injury, Pain, Swelling Location: Foot - left, Knee - left Where: Home Quality of pain: Achy Context: Fell Recent injury: Possibly Exacerbated by: Movement, Walking Relieved by: Nothing - Related Data Allergies/Adverse Reactions: sumatriptan [From Imitrex] Allergy (Verified 10/15/17 12:15) tramadol [From Ultram] Allergy (Verified 10/15/17 12:15) Past Medical History - General Information source: Patient - Social History Smoking Status: Current Every Day Smoker Frequency of alcohol use: None Drug Abuse: None Lives with: Family Family History: Reviewed & Not Pertinent - Past Medical History Cardiac Medical History: Reports: Hx Hypercholesterolemia, Hx Hypertension Pulmonary Medical History: Reports: Hx Asthma, Hx COPD Renal/ Medical History: Reports: Hx Kidney Stones - stent. Denies: Hx Peritoneal Dialysis GI Medical History: Denies: Hx Diverticulitis, Hx Pancreatitis, Hx Ulcerative Colitis Past Surgical History: Reports: Hx Cholecystectomy, Hx Orthopedic Surgery - Right BKA Review of Systems - Review of Systems Constitutional: No symptoms reported EENT: No symptoms reported Cardiovascular: No symptoms reported Respiratory: No symptoms reported Gastrointestinal: No symptoms reported Genitourinary: No symptoms reported Male Genitourinary: No symptoms reported Musculoskeletal: See HPI Skin: No symptoms reported Hematologic/Lymphatic: No symptoms reported Neurological/Psychological: No symptoms reported Physical Exam - Vital signs Vitals: Temp Pulse Resp BP Pulse Ox 98.0 F 78 18 166/91 H 96 10/15/17 12:19 10/15/17 12:19 10/15/17 12:19 10/15/17 12:19 10/15/17 12:19 Interpretation: Normal - General General appearance: Appears well, Alert - HEENT Head: Normocephalic, Atraumatic Eyes: Normal Conjunctiva: Normal Extraocular movements intact: Yes Pupils: PERRL Tympanic membrane: Normal Mouth/Lips: Other - + tenderness left TMJ area. no malocclusion. Mucous membranes: Normal Pharynx: Normal Neck: Normal, Supple - Respiratory Respiratory status: No respiratory distress Chest status: Nontender Breath sounds: Normal Chest palpation: Normal - Cardiovascular Rhythm: Regular Heart sounds: Normal auscultation Murmur: No - Abdominal Inspection: Normal Distension: No distension Bowel sounds: Normal Tenderness: Nontender Organomegaly: No organomegaly - Back Back: Normal, Tender, Other - abrasion to left periscapular area and left mid back. no vertebral tenderenss - Extremities General upper extremity: Normal inspection, Nontender, Normal color, Normal ROM , Normal temperature Knee: Tender, Joint effusion, Pain with ROM Foot: Tender, Ecchymosis - left distal foot, Edema - Neurological Neuro grossly intact: Yes Cognition: Normal Orientation: AAOx4 [place] Coma Scale Eye Opening: Spontaneous [place] Coma Scale Verbal: Oriented Andrew Coma Scale Motor: Obeys Commands Cla[place] Coma Scale Total: 15 Speech: Normal Motor strength normal: LUE, RUE, LLE, RLE Sensory: Normal - Psychological Associated symptoms: Normal affect, Normal mood - Skin Skin Temperature: Warm Skin Moisture: Dry Skin Color: Normal Skin irregularity: other - abrasion to left periscapular area and left mid back Course - Re-evaluation Re-evalutation: 10/15/17 15:28 After performing a Medical Screening Examination, I estimate there is LOW risk for OPEN FRACTURE, COMPARTMENT SYNDROME, DEEP VENOUS THROMBOSIS, ACUTE TENDON RUPTURE, or NEUROVASCULAR INJURY thus I consider the discharge disposition reasonable. I have reevaluated this patient multiple times and no significant life threatening changes are noted. The patient and I have discussed the diagnosis and risks, and we agree with discharging home to closely follow-up with their primary doctor or the referral orthopedist with the understanding that symptoms and presentations can change. We also discussed returning to the Emergency Department immediately if new or worsening symptoms occur. We have discussed the symptoms which are most concerning (e.g., changing or worsening pain, numbness, weakness) that necessitate immediate return 10/15/17 16:30 All x-rays are negative for fracture. Facial CT was negative for fractures. All results were reviewed with patient. 10/15/17 16:32 Blood pressure is noted to be elevated at today's visit. Patient is a known hypertensive and is taking his medications as prescribed. Patient denies any headache, chest pain, dizziness or other signs and symptoms of hypertensive crisis. - Vital Signs Vital signs: Temp Pulse Resp BP Pulse Ox 98.0 F 78 18 166/91 H 96 10/15/17 12:19 10/15/17 12:19 10/15/17 12:19 10/15/17 12:19 10/15/17 12:19 Procedures - Immobilization left knee Pre-Proc Neuro Vasc Exam: Normal Immobilizer type: Aldo wrap Performed by: PCT Post-Proc Neuro Vasc Exam: Normal Alignment checked and good: Yes left foot Pre-Proc Neuro Vasc Exam: Normal Immobilizer type: Aldo wrap Performed by: PCT Post-Proc Neuro Vasc Exam: Normal Alignment checked and good: Yes Discharge - Discharge Clinical Impression: Effusion, left knee Left knee sprain Qualifiers: Encounter type: initial encounter Involved ligament of knee: unspecified ligament Qualified Code(s): S83.92XA - Sprain of unspecified site of left knee, initial encounter Sprain of left foot Qualifiers: Encounter type: initial encounter Qualified Code(s): S93.602A - Unspecified sprain of left foot, initial encounter Contusion of jaw Qualifiers: Encounter type: initial encounter Qualified Code(s): S00.83XA - Contusion of other part of head, initial encounter Condition: Stable Disposition: HOME, SELF-CARE Instructions: Aldo Wrap ([facility]), Ice & Elevation ([facility]), Sprain ([facility]), Sprained Knee ([facility]), Use of Crutches ([facility]), Oral Narcotic Medication ([facility]) Additional Instructions: Your x-rays were negative for fracture Wear Aldo wrap for support and compression Ice and elevate the injured extremities as much as possible Follow-up with your primary care if pain persists Prescriptions: Oxycodone HCl/Acetaminophen [Percocet 5-325 mg Tablet] 1 - 2 tab PO ASDIR PRN # 15 tablet PRN Reason: Forms: Elevated Blood Pressure Referrals: DAYDAY CHANG MD [Primary Care Provider] - Follow up as needed
--- NOTE | 2017-10-15 15:06 | RADIOLOGY REPORT (SQ) ---
EXAM DESCRIPTION: FOOT LEFT COMPLETE attention great toe COMPLETED DATE/TIME: 10/15/2017 2:10 pm REASON FOR STUDY: fell, foot pain and swelling attention great toe. COMPARISON: None. NUMBER OF VIEWS: Three views. TECHNIQUE: AP, lateral and oblique radiographic images acquired of the left foot. LIMITATIONS: None. FINDINGS: MINERALIZATION: Normal. BONES: No acute fracture or dislocation. No worrisome bone lesions. JOINTS: Joint spaces maintained. SOFT TISSUES: No metallic foreign body. OTHER: No other significant finding. IMPRESSION: No acute fractures identified. TECHNICAL DOCUMENTATION: JOB ID: [id number] [employer]- All Rights Reserved Reading location - IP/workstation name: [email or web address]
--- NOTE | 2017-10-15 15:08 | RADIOLOGY REPORT (SQ) ---
EXAM DESCRIPTION: KNEE LEFT 4 VIEW COMPLETED DATE/TIME: 10/15/2017 2:10 pm REASON FOR STUDY: fell, knee pain and swelling COMPARISON: None. NUMBER OF VIEWS: Four views. TECHNIQUE: AP, lateral, and both oblique radiographic images acquired of the left knee. LIMITATIONS: None. FINDINGS: MINERALIZATION: Normal. BONES: No acute fracture or dislocation. No worrisome bone lesions. JOINT: Tiny suprapatellar knee joint effusion. There is moderate patellofemoral compartment and mild medial and lateral compartment joint space narrowing with bony spurring from osteoarthritis. SOFT TISSUES: No soft tissue swelling. No radio-opaque foreign body. OTHER: No other significant finding. IMPRESSION: Tiny joint effusion. No acute fracture. TECHNICAL DOCUMENTATION: JOB ID: [id number] [employer]- All Rights Reserved Reading location - IP/workstation name: [email or web address]
--- NOTE | 2017-10-15 15:12 | RADIOLOGY REPORT (SQ) ---
EXAM DESCRIPTION: MANDIBLE 4 VIEWS OR MORE COMPLETED DATE/TIME: 10/15/2017 2:10 pm REASON FOR STUDY: fell, left jaw pain COMPARISON: CT facial bones 01/05/2017 NUMBER OF VIEWS: Four view. TECHNIQUE: Images of the mandible acquired. AP, Neha's, angled right, angled left mandible images. LIMITATIONS: None. FINDINGS: MANDIBLE: On the Neha's view, there is medial angulation of the left mandibular condyle, a fracture along the condyle may be present. CT recommended for follow-up. This finding was discus sed with treatment Boyle. Remainder of the mandible by plain film is grossly intact. There is no malalignment at the bilateral temporomandibular joints. ORBITS: No fracture. No foreign body. SINUSES: No mucosal thickening. No air fluid levels. FACIAL BONES: No fracture. OTHER: No other significant finding. IMPRESSION: Question fracture left mandibular condyle. Follow-up CT facial bones recommended TECHNICAL DOCUMENTATION: JOB ID: [id number] [employer]- All Rights Reserved Reading location - IP/workstation name: [email or web address]
[2017-10-15] MEDS ORDERED: OXYCODONE-ACETAMINOPHEN 5-325 MG TABLET PO ONE (15:41)
--- NOTE | 2017-10-15 16:01 | RADIOLOGY REPORT (SQ) ---
EXAM DESCRIPTION: CT FACIAL AREA WITHOUT COMPLETED DATE/TIME: 10/15/2017 3:49 pm REASON FOR STUDY: fall, left mandibular pain COMPARISON: CT facial bones 01/05/2017 TECHNIQUE: Noncontrasted images through the facial bones and orbits windowed for bone and soft tissu e. Additional coronal and sagittal reconstructed images reviewed. All images stored on PACS. All CT scanners at this facility use dose modulation, iterative reconstruction, and/or weight based d osing when appropriate to reduce radiation dose to as low as reasonably achievable (ALARA). [facility]: Dose Right [facility]: CareDose [facility]: Dose Right [facility]: Teradose 4D [facility]: U-NOTE RADIATION DOSE: CT Rad equipment meets quality standard of care and radiation dose reduction techniq ues were employed. CTDIvol: 30.4 mGy. DLP: 585 mGy-cm. mGy. LIMITATIONS: None. FINDINGS: FACIAL BONES: No fracture or bone lesion. ORBITS: Intact. No fracture. Symmetric intact globes and retroorbital soft tissues. PARANASAL SINUSES: Clear. No significant mucosal thickening, mass or fluid. No nasal polyps. Maxill domingo sinus outlets are patent. SOFT TISSUES: No mass or edema. INFERIOR BRAIN: Limited view. No acute findings. OTHER: No mandibular fracture is present. In particular, no left mandibular condyle fracture is seen . No left temporomandibular joint malalignment. IMPRESSION: NO ACUTE FINDINGS. TECHNICAL DOCUMENTATION: JOB ID: [id number] Quality ID # [id number]: Final reports with documentation of one or more dose reduction techniques (e.g., Au tomated exposure control, adjustment of the mA and/or kV according to patient size, use of iterative reconstruction technique) 2010 [employer]- All Rights Reserved Reading location - IP/workstation name: [email or web address]
[2017-10-15 16:42] VITALS: BP 151/85
== END 2017-10-15 16:42 | disposition home or self-care (01) ==
LOC: ER 12:12
DX: S93.602A Unspecified sprain of left foot, initial encounter (principal); S00.83XA Contusion of other part of head, initial encounter; S83.92XA Sprain of unspecified site of left knee, initial encounter; M25.562 Pain in left knee; R68.84 Jaw pain; W19.XXXA Unspecified fall, initial encounter; Y92.009 Unspecified place in unspecified non-institutional (private) residence as the place of occurrence of the external cause; E78.00 Pure hypercholesterolemia, unspecified; I10 Essential (primary) hypertension; J44.9 Chronic obstructive pulmonary disease, unspecified; Z87.442 Personal history of urinary calculi; Z90.49 Acquired absence of other specified parts of digestive tract; Z89.511 Acquired absence of right leg below knee
CPT/HCPCS: 70110; 70486; 99284

== ENCOUNTER → 2017-11-24 | Outpatient (CLI) | payer MEDICAID, MEDICARE ==
--- NOTE | 2017-11-24 10:12 | RADIOLOGY REPORT (SQ) ---
EXAM DESCRIPTION: CT ABD/PELVIS NO ORAL OR IV COMPLETED DATE/TIME: 11/24/2017 7:40 am REASON FOR STUDY: STONES (N20.0) R13.19 OTHER DYSPHAGIA COMPARISON: 09/06/2017 TECHNIQUE: CT scan of the abdomen and pelvis performed without intravenous or oral contrast. Images reviewed with lung, soft tissue, and bone windows. Reconstructed coronal and sagittal MPR images revi ewed. All images stored on PACS. All CT scanners at this facility use dose modulation, iterative reconstruction, and/or weight based d osing when appropriate to reduce radiation dose to as low as reasonably achievable (ALARA). [facility]: Dose Right [facility]: CareDose [facility]: Dose Right [facility]: Teradose 4D [facility]: [employer] RADIATION DOSE: CT Rad equipment meets quality standard of care and radiation dose reduction techniq ues were employed. CTDIvol: 16.0 mGy. DLP: 863 mGy-cm.mGy. LIMITATIONS: None. FINDINGS: LOWER CHEST: No significant findings. No nodules or infiltrates. NON-CONTRASTED LIVER, SPLEEN, ADRENALS: Evaluation limited by lack of IV contrast. No identified sign ificant masses. PANCREAS: No masses. No peripancreatic inflammatory changes. GALLBLADDER: Surgically absent. RIGHT KIDNEY AND URETER: No suspicious masses. Assessment limited by lack of IV contrast. No signif icant calcifications. No hydronephrosis or hydroureter. LEFT KIDNEY AND URETER: No suspicious masses. Assessment limited by lack of IV contrast. Interval d ecrease in the number of calcifications in the lower pole. No ureteral calculi. Indicates passage o f left-sided calculi since prior study. No hydronephrosis or hydroureter. AORTA AND RETROPERITONEUM: Aortic stent graft unchanged. BOWEL AND PERITONEAL CAVITY: No obvious masses or inflammatory changes. No free fluid. APPENDIX: Normal. PELVIS, BLADDER, AND ABDOMINAL WALL:No abnormal masses. No free fluid. Bladder normal. BONES: No significant findings. OTHER: No other significant finding. IMPRESSION: Interval decrease in the number of left renal calculi, without ureteral calculi or hydro nephrosis. Interval passage of small left sided calculi. COMMENT: Quality ID # 436: Final reports with documentation of one or more dose reduction techniques (e.g., Automated exposure control, adjustment of the mA and/or kV according to patient size, use of iterative reconstruction technique) TECHNICAL DOCUMENTATION: JOB ID: [id number] [employer]- All Rights Reserved Reading location - IP/workstation name: [email or web address]
--- NOTE | 2017-11-24 15:52 | RADIOLOGY REPORT (SQ) ---
EXAM DESCRIPTION: BARIUM SWALLOW ESOPHAGUS COMPLETED DATE/TIME: 11/24/2017 8:30 am REASON FOR STUDY: DYSPHAGIA (R13.19) R13.19 OTHER DYSPHAGIA COMPARISON: None. TECHNIQUE: Under fluoroscopic guidance, patient ingested effervescent granules followed by thick and thin barium. Fluoroscopic spot images and routine radiographic images acquired and stored on PACS. 12 MM BARIUM TABLET GIVEN: Yes. Slight delay in passage at the GE junction. LIMITATIONS: None. FLUOROSCOPY TIME: FLUORO TIME: 2.6 minutes of fluoroscopy was used. 11 images saved to PACS. FINDINGS: NEUROMUSCULAR COORDINATION OF SWALLOW: Normal. No aspiration. ESOPHAGEAL MOTILITY: Normal peristalsis. No esophageal spasm. ESOPHAGEAL MUCOSA: Normal mucosa without masses or ulceration. GASTRO-ESOPHAGEAL JUNCTION: Slight narrowing of the distal esophagus just proximal to the GE junction does cause momentary delay in passage of the 12 mm barium tablet. Small sliding hiatal hernia with moderate free-flowing gastroesophageal reflux seen. NON-GI TRACT STRUCTURES: No significant finding. OTHER: No other significant finding. IMPRESSION: SMALL SLIDING HIATAL HERNIA WITH MODERATE FREE-FLOWING GASTROESOPHAGEAL REFLUX. COMMENT: Quality ID 145: Final reports for procedures using fluoroscopy that document radiation exp osure indices, or exposure time and number of fluorographic images (if radiation exposure indices are not available) TECHNICAL DOCUMENTATION: JOB ID: [id number] [employer]- All Rights Reserved Reading location - IP/workstation name: [email or web address]
== END ==
LOC: RAD 07:22
PROVIDERS: ATTEND Family Medicine
DX: N20.0 Calculus of kidney (principal); K21.9 Gastro-esophageal reflux disease without esophagitis; K44.9 Diaphragmatic hernia without obstruction or gangrene; R13.19 Other dysphagia
CPT/HCPCS: 74176; 74220

== ENCOUNTER 2018-03-03 21:00 | Emergency (ER) | payer MEDICARE, MEDICAID ==
[2018-03-03] MEDS ORDERED: NORMAL SALINE 1000 ML 1,000 ML IV ONE (21:17)
[2018-03-03 21:46] LABS: ABSOLUTE BASOPHILS # (AUTO) 0.1 10^3/uL (0.0-0.2); ABSOLUTE EOSINOPHILS # (AUTO) 0.1 10^3/uL (0.0-0.6); ABSOLUTE LYMPHOCYTES (AUTO) 1.2 10^3/uL (0.5-4.7); ABSOLUTE MONOCYTES (AUTO) 0.6 10^3/uL (0.1-1.4); ABSOLUTE NEUT (AUTO) 7.9 10^3/uL (1.7-8.2); EOSINOPHILS % (AUTO) 0.7 % (0-6); HEMOGLOBIN 15.7 g/dL (13.5-17.0); LYMPHOCYTES % (AUTO) 12.4 % (13-45); MEAN CORPUSCULAR HEMOGLOBIN 33.1 pg (27.0-33.4); MEAN CORPUSCULAR HGB CONC 34.8 g/dL (32.0-36.0); MEAN CORPUSCULAR VOLUME 95 fl (80-97); MONOCYTES % (AUTO) 6.5 % (3-13); PLATELET COUNT 176 10^3/uL (150-450); RED BLOOD COUNT 4.73 10^6/uL (4.35-5.55); RED CELL DISTRIBUTION WIDTH 14.5 % (11.5-14.0); SEGMENTED NEUTROPHILS % (AUTO) 79.4 % (42-78); TOTAL CELLS COUNTED % (AUTO) 100 %; WHITE BLOOD COUNT 9.9 10^3/uL (4.0-10.5)
[2018-03-03 22:02] LABS: ALANINE AMINOTRANSFERASE 35 U/L (21-72); ALBUMIN 3.9 g/dL (3.5-5.0); ALKALINE PHOSPHATASE 136 U/L (38-126); ANION GAP 8 (5-19); ASPARTATE AMINO TRANSFERASE 24 U/L (17-59); BILIRUBIN,DIRECT 0.3 mg/dL (0.0-0.4); BILIRUBIN,TOTAL 0.6 mg/dL (0.2-1.3); BLOOD UREA NITROGEN 10 mg/dL (7-20); CARBON DIOXIDE 27 mmol/L (22-30); CHLORIDE 110 mmol/L (98-107); CREATINE KINASE 155 U/L (55-170); GLUCOSE 107 mg/dL (75-110); POTASSIUM 4.1 mmol/L (3.6-5.0); SODIUM 144.8 mmol/L (137-145); TOTAL PROTEIN 6.8 g/dL (6.3-8.2)
[2018-03-03 22:05] LABS: ALCOHOL < 10 mg/dL (NONE DETECTED)
--- NOTE | 2018-03-03 22:11 | RADIOLOGY REPORT (SQ) ---
PROCEDURE: XR CHEST 1 VIEW HISTORY: confusion, lethargy, vomiting COMPARISON: 09/28/2016 TECHNIQUE: The study was done on 03/03/2018 at 9:43 PM Single projection of the chest was done. FINDINGS: The lung kurtz are well inflated . There are no discrete airspace infiltrates, pneumothoraces or pleural effusions. The pulmonary vascularity is normal. The cardiomediastinal silhouette is unremarkable for patient's age and sex. IMPRESSION: There is no acute pleural-parenchymal process seen in the imaged lung kurtz. Location of Interpretation: [facility]
--- NOTE | 2018-03-03 22:13 | RADIOLOGY REPORT (SQ) ---
PROCEDURE: CT OF THE HEAD WITHOUT INTRAVENOUS CONTRAST HISTORY: confusion, lethargy, vomiting Indication: Same as above Comparison: 01/05/2017 Technique: The study was done on 03/03/2018 at 9:[address] of the head was done without intravenous contrast was done in the orthogonal planes. This exam was performed according to our departmental dose-optimization program, which includes automated exposure control, adjustment of the mA and/or KV according to the patient's size and/or use of iterative reconstruction technique. FINDINGS: There is no intracranial hemorrhage, midline shift mass effect or acute focal infarct. If clinical concern exists regarding an acute ischemic/vascular pathology being responsible for patient's symptomatology, an MRI of the brain is more sensitive than the current study, in ruling out such a possibility. There is good calvert/white matter differentiation. The ventricular system is normal. The mastoid air cells are unremarkable . The paranasal sinuses are unremarkable . There is no visualization of acute fractures involving the calvarium or the skull base. IMPRESSION: There is no acute intracranial abnormality.
[2018-03-03 22:54] LABS: APPEARANCE,URINE CLEAR; BILIRUBIN,URINE NEGATIVE (NEGATIVE); COLOR,URINE YELLOW; GLUCOSE, URINE NEGATIVE (NEGATIVE); KETONES,URINE NEGATIVE (NEGATIVE); LEUKOCYTE ESTERASE,URINE NEGATIVE (NEGATIVE); NITRITE,URINE NEGATIVE (NEGATIVE); PROTEIN,URINE NEGATIVE (NEGATIVE); URINE SPECIFIC GRAVITY 1.012; UROBILINOGEN,URINE NEGATIVE mg/dL (<2.0)
[2018-03-03 23:20] LABS: URINE AMPHETAMINES SCREEN NEGATIVE; URINE BARBITURATES SCREEN NEGATIVE; URINE BENZODIAZEPINES SCREEN NEGATIVE; URINE COCAINE SCREEN NEGATIVE; URINE MARIJUANA (THC) SCREEN NEGATIVE; URINE METHADONE SCREEN NEGATIVE; URINE PHENCYCLIDINE SCREEN NEGATIVE
--- NOTE | 2018-03-04 00:19 | ER Document Report ---
ED General - General Chief Complaint: Altered Mental Status Stated Complaint: WEAKNESS Time Seen by Provider: 03/03/18 21:07 Notes: Patient is a 52-year-old male that comes to the emergency department for chief complaint of vomiting and difficulty arousing. EMS reports that family called, states that patient has been outside in the heat working all day, they state after this he became very tired and he became difficult to arouse. They denied passing out, fall injury. Patient tells me that he just feels really tired. He denies headache, chest pain, fever, or any other complaints at this time. Past medical history includes hypertension, hyperlipidemia, asthma, chronic back pain. He states she is on Lyrica and Robaxin, states she is not on any opiates, denies alcohol or recreational drugs. TRAVEL OUTSIDE OF THE [place] IN LAST 30 DAYS: No - Related Data Allergies/Adverse Reactions: sumatriptan [From Imitrex] Allergy (Verified 10/15/17 12:15) tramadol [From Ultram] Allergy (Verified 10/15/17 12:15) Past Medical History - General Information source: Patient - Social History Smoking Status: Current Every Day Smoker Chew tobacco use (# tins/day): No Frequency of alcohol use: None Drug Abuse: None Lives with: Family Family History: Reviewed & Not Pertinent Patient has suicidal ideation: No Patient has homicidal ideation: No - Past Medical History Cardiac Medical History: Reports: Hx Hypercholesterolemia, Hx Hypertension Pulmonary Medical History: Reports: Hx Asthma, Hx COPD Renal/ Medical History: Reports: Hx Kidney Stones - stent. Denies: Hx Peritoneal Dialysis GI Medical History: Reports: Hx Gastroesophageal Reflux Disease. Denies: Hx Diverticulitis, Hx Pancreatitis, Hx Ulcerative Colitis Past Surgical History: Reports: Hx Abdominal Surgery - aneurysm, Hx Cholecystectomy, Hx Orthopedic Surgery - Right BKA Review of Systems - Review of Systems Constitutional: No symptoms reported EENT: No symptoms reported Cardiovascular: No symptoms reported Respiratory: No symptoms reported Gastrointestinal: No symptoms reported Genitourinary: No symptoms reported Male Genitourinary: No symptoms reported Musculoskeletal: No symptoms reported Skin: No symptoms reported Hematologic/Lymphatic: No symptoms reported Neurological/Psychological: See HPI Physical Exam - Vital signs Vitals: Resp 11 L 03/03/18 21:06 - Notes Notes: GENERAL: Patient drowsy, slightly difficult to arouse, immediately falls back to sleep. HEAD: Normocephalic, atraumatic. EYES: Pupils equal, round, and reactive to light. Extraocular movements intact. ENT: Oral mucosa very dry, tongue midline, oropharyngeal exam unremarkable NECK: Full range of motion. Supple. Trachea midline. LUNGS: Clear to auscultation bilaterally, no wheezes, rales, or rhonchi. No respiratory distress. HEART: Regular rate and rhythm. No murmur ABDOMEN: Soft, non-tender. Non-distended. Bowel sounds present in all 4 quadrants. EXTREMITIES: Moves all 4 extremities spontaneously. No edema, normal radial and dorsalis pedis pulses bilaterally. No cyanosis. BACK: no cervical, thoracic, lumbar midline tenderness. No saddle anesthesia, normal distal neurovascular exam. NEUROLOGICAL: Answers questions appropriately, normal speech, cranial nerves II 2 through 12 intact although patient falls asleep immediately after cooperating with each specific request. GCS of 13. SKIN: Warm, dry, normal turgor. No rashes or lesions noted. Course - Re-evaluation Re-evalutation: Patient is difficult to arouse, he will answer questions and then immediately fall back to sleep. He is very dry with parched mucous membranes. He is not tachycardic, febrile, hypotensive. He is oriented to place and events. He is not tachycardic, hypotensive, or febrile. CT of the head unremarkable, chest x-ray unremarkable. CBC, chemistry, urinalysis unremarkable. Urine drug screen is negative. Cardiac enzymes negative. After a bolus of normal saline and reevaluated patient, he is beginning to improve. Family at bedside, they state that patient did overheat, went inside, vomited, then went and took some sort of medication and afterwards became very somnolent. They are unsure if he took opiates or otherwise. He is not prescribed any opiates. His urine drug screen is negative for opiates. Patient reevaluated again, now he is very alert, arousable, spontaneously awakens, sits up, is not lethargic any longer. He states that he went back inside and took a Lyrica or gabapentin dose and afterwards became very sleepy. He denies any current complaints. Asking for a drink. Tolerated p.o. Family asking to take him home. Discharged with follow-up instructions and return precautions after discussion about his gabapentin or Lyrica along with other possible sedating medications. - Vital Signs Vital signs: Temp Pulse Resp BP Pulse Ox 14 164/98 H 98 03/04/18 00:01 03/04/18 00:01 03/04/18 00:01 - Laboratory Result Diagrams: 03/03/18 21:35 03/03/18 21:35 Laboratory results interpreted by me: 03/03/18 03/03/18 03/03/18 21:16 21:35 21:35 RDW 14.5 H Seg Neutrophils % 79.4 H Lymphocytes % 12.4 L Chloride 110 H POC Glucose 114 H Alkaline Phosphatase 136 H Discharge - Discharge Clinical Impression: Somnolence Vomiting Qualifiers: Vomiting type: unspecified Vomiting Intractability: non-intractable Nausea presence: with nausea Qualified Code(s): R11.2 - Nausea with vomiting, unspecified Heat exhaustion Qualifiers: Encounter type: initial encounter Qualified Code(s): T67.5XXA - Heat exhaustion , unspecified, initial encounter Condition: Stable Disposition: HOME, SELF-CARE Additional Instructions: Your evaluation and laboratory workup does not show any concerning findings. You have been rehydrated here in the emergency department. You were initially very sedated since his appears to be from your current medications I recommend that you discuss your dosing of medications including Lyrica and Robaxin with your primary care provider. Avoid mixing this with any sedating substances. Return if you worsen including fever, difficulty breathing , vomiting again, passing out, or any other concerning symptoms. Referrals: DAYDAY CHANG MD [Primary Care Provider] - Follow up as needed
[2018-03-04 00:24] VITALS: BP 164/98
--- NOTE | 2018-03-04 11:13 | EKG REPORT ---
SEVERITY:- OTHERWISE NORMAL ECG - SINUS RHYTHM BORDERLINE RIGHT AXIS DEVIATION : Confirmed by: tSu Pedraza 04-Mar-2018 11:12:57
== END 2018-03-04 00:29 | disposition home or self-care (01) ==
LOC: ER 21:00
DX: R40.0 Somnolence (principal); T67.5XXA Heat exhaustion, unspecified, initial encounter; R11.2 Nausea with vomiting, unspecified; X30.XXXA Exposure to excessive natural heat, initial encounter; I10 Essential (primary) hypertension
CPT/HCPCS: 36415; 70450; 71045; 80053; 80307; 81001; 82550; 82962; 84484; 85025; 93005; 93010; 96360; 99285

== ENCOUNTER 2018-05-01 16:33 | Inpatient (IN) | payer MEDICARE, MEDICAID ==
[2018-05-01] MEDS ORDERED: DEXTROSE 5%-LACTATED RINGERS 1,000 ML IV ONE (19:26)
[2018-05-01] MEDS ORDERED: AMPICILLIN SOD/SULBACTAM 3 GM VIAL IV ONE (19:26)
[2018-05-01] MEDS ORDERED: MORPHINE SULFATE 10 MG/ML INJ IV ONE (19:42)
[2018-05-01] MEDS ORDERED: ONDANSETRON HCL INJ/PF 4 MG/2 ML SDV IV ONE (19:42)
[2018-05-01 20:03] LABS: ABSOLUTE BASOPHILS # (AUTO) 0.1 10^3/uL (0.0-0.2); ABSOLUTE EOSINOPHILS # (AUTO) 0.1 10^3/uL (0.0-0.6); ABSOLUTE LYMPHOCYTES (AUTO) 1.6 10^3/uL (0.5-4.7); ABSOLUTE MONOCYTES (AUTO) 0.7 10^3/uL (0.1-1.4); BASOPHILS % (AUTO) 0.6 % (0-2); EOSINOPHILS % (AUTO) 1.2 % (0-6); HEMATOCRIT 48.7 % (37.9-51.0); HEMOGLOBIN 17.2 g/dL (13.5-17.0); LYMPHOCYTES % (AUTO) 17.3 % (13-45); MEAN CORPUSCULAR HEMOGLOBIN 33.5 pg (27.0-33.4); MEAN CORPUSCULAR HGB CONC 35.4 g/dL (32.0-36.0); MEAN CORPUSCULAR VOLUME 95 fl (80-97); MONOCYTES % (AUTO) 6.9 % (3-13); PLATELET COUNT 161 10^3/uL (150-450); RED BLOOD COUNT 5.15 10^6/uL (4.35-5.55); RED CELL DISTRIBUTION WIDTH 13.9 % (11.5-14.0); TOTAL CELLS COUNTED % (AUTO) 100 %; WHITE BLOOD COUNT 9.5 10^3/uL (4.0-10.5)
[2018-05-01 20:20] LABS: ALANINE AMINOTRANSFERASE 21 U/L (21-72); ALBUMIN 4.8 g/dL (3.5-5.0); ALKALINE PHOSPHATASE 127 U/L (38-126); ANION GAP 13 (5-19); ASPARTATE AMINO TRANSFERASE 18 U/L (17-59); BILIRUBIN,DIRECT 0.2 mg/dL (0.0-0.4); BILIRUBIN,TOTAL 0.4 mg/dL (0.2-1.3); BLOOD UREA NITROGEN 14 mg/dL (7-20); C-REACTIVE PROTEIN 20.9 mg/L (<10.0); CALCIUM 9.6 mg/dL (8.4-10.2); CARBON DIOXIDE 28 mmol/L (22-30); CHLORIDE 104 mmol/L (98-107); GLUCOSE 91 mg/dL (75-110); POTASSIUM 4.1 mmol/L (3.6-5.0); SODIUM 144.5 mmol/L (137-145); TOTAL PROTEIN 8.3 g/dL (6.3-8.2)
[2018-05-01 20:40] LABS: ERYTHROCYTE SEDIMENTATION RATE 22 mm/hr (0-20)
--- NOTE | 2018-05-01 20:54 | RADIOLOGY REPORT (SQ) ---
EXAM DESCRIPTION: FEMUR RIGHT COMPLETED DATE/TIME: 05/01/2018 8:41 pm REASON FOR STUDY: infection bka COMPARISON: Concurrent knee radiograph NUMBER OF VIEWS: Two views. TECHNIQUE: Two radiographic images acquired of the right femur to include hip and knee in at least o ne projection. LIMITATIONS: None. FINDINGS: MINERALIZATION: Osteopenia. BONES: Intramedullary sukumar and proximal fixation screw traverses the old healed fracture of the mid fe mur. No perihardware lucency or hardware fracture. No acute fracture. Hip joint is approximated. No erosions. SOFT TISSUES: No obvious swelling or foreign body. No dissecting subcutaneous gas. OTHER: Incompletely visualized vascular graft of the visualized abdomen. IMPRESSION: 1. No radiographic evidence of active osteitis. 2. Internally fixed old right femur fracture without adverse features. TECHNICAL DOCUMENTATION: JOB ID: [id number] [employer]- All Rights Reserved Reading location - IP/workstation name: [email or web address]
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
--- NOTE | 2018-05-01 20:56 | RADIOLOGY REPORT (SQ) ---
EXAM DESCRIPTION: KNEE RIGHT 4 VIEWS COMPLETED DATE/TIME: 05/01/2018 8:41 pm REASON FOR STUDY: infection bka COMPARISON: Concurrent femur radiograph NUMBER OF VIEWS: Four views. TECHNIQUE: AP, lateral, and both oblique radiographic images acquired of the right knee. LIMITATIONS: None. FINDINGS: MINERALIZATION: Osteopenia. BONES: Incompletely visualized intramedullary sukumar of the distal femur. Better evaluated on dedicated right femur radiographs. Amputation of the proximal tibia and fibula. Amputation margins have a sm ooth contour. No acute fracture. Knee joint is approximated. Unable to evaluate for joint space na rrowing due to patient positioning. JOINT: No effusion. SOFT TISSUES: Soft tissue swelling posterior to the proximal tibia and fibula. No dissecting subcuta neous gas. No radiopaque foreign body. OTHER: No other significant finding. IMPRESSION: Soft tissue swelling posterior to the proximal tibia and fibula. No radiographic findin gs of active osteitis. TECHNICAL DOCUMENTATION: JOB ID: [id number] [employer]- All Rights Reserved Reading location - IP/workstation name: [email or web address]
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
[2018-05-01] MEDS ORDERED: VANCOMYCIN HCL 0 MG in DEXTROSE 5%-WATER 250 ML IV NR (23:45)
[2018-05-01] MEDS ORDERED: MAG HYDROX/AL HYDROX/SIMETH SUSP 30 ML UDCUP PO PRN (23:52)
[2018-05-01] MEDS ORDERED: TEMAZEPAM 15 MG CAPSULE PO PRN (23:52)
[2018-05-01] MEDS ORDERED: ACETAMINOPHEN 325 MG TABLET PO PRN (23:52)
[2018-05-01] MEDS ORDERED: DEXTROSE 40% GEL 15 GM TUBE PO PRN ×2 (23:52)
[2018-05-01] MEDS ORDERED: GLUCAGON,HUMAN RECOMB 1 MG INJ SUBCUT PRN (23:52)
[2018-05-01] MEDS ORDERED: DEXTROSE 50%-WATER 25 GM/50 ML DISP.SYRIN IV PRN ×2 (23:52)
[2018-05-01] MEDS ORDERED: PROMETHAZINE HCL 25 MG TABLET PO PRN (23:52)
[2018-05-01] MEDS ORDERED: IPRATROPIUM/ALBUTEROL 0.5-2.5 MG/3 ML AMPUL NEB PRN (23:52)
[2018-05-01] MEDS ORDERED: PROMETHAZINE HCL INJ 25 MG/1 ML VIAL IV PRN (23:52)
[2018-05-01] MEDS ORDERED: NICOTINE 21 MG/24 HR PATCH.TD24 TD PRN (23:59)
[2018-05-02] MEDS ORDERED: PIPERACILLIN/TAZOBACTAM 3.375 GM VIAL IV PRN (00:14)
[2018-05-02] MEDS ORDERED: VANCOMYCIN HCL INJ 1000 MG VIAL IV PRN (00:19)
[2018-05-02] MEDS ORDERED: VANCOMYCIN HCL 2,000 MG in DEXTROSE 5%-WATER 500 ML IV ONE (01:00)
[2018-05-02] MEDS ORDERED: VANCOMYCIN HCL INJ 1000 MG VIAL ONE (01:20)
[2018-05-02] MEDS ORDERED: PIPERACILLIN/TAZOBACTAM 3.375 GM VIAL IV ONE (01:21)
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
[2018-05-02] MEDS: PIPERACILLIN SODIUM/TAZOBACTAM 3.375 GM in NORMAL SALINE 100 ML IV SCH ×4 (02:39→17:12)
[2018-05-02 04:30] LABS: ABSOLUTE BASOPHILS # (AUTO) 0.1 10^3/uL (0.0-0.2); ABSOLUTE EOSINOPHILS # (AUTO) 0.1 10^3/uL (0.0-0.6); ABSOLUTE MONOCYTES (AUTO) 0.6 10^3/uL (0.1-1.4); ABSOLUTE NEUT (AUTO) 6.1 10^3/uL (1.7-8.2); BASOPHILS % (AUTO) 0.7 % (0-2); EOSINOPHILS % (AUTO) 1.2 % (0-6); HEMOGLOBIN 15.5 g/dL (13.5-17.0); LYMPHOCYTES % (AUTO) 12.4 % (13-45); MEAN CORPUSCULAR HEMOGLOBIN 33.1 pg (27.0-33.4); MEAN CORPUSCULAR HGB CONC 35.2 g/dL (32.0-36.0); MEAN CORPUSCULAR VOLUME 94 fl (80-97); MONOCYTES % (AUTO) 7.7 % (3-13); PLATELET COUNT 144 10^3/uL (150-450); RED BLOOD COUNT 4.68 10^6/uL (4.35-5.55); TOTAL CELLS COUNTED % (AUTO) 100 %; WHITE BLOOD COUNT 7.8 10^3/uL (4.0-10.5)
[2018-05-02 04:51] LABS: ANION GAP 9 (5-19); BLOOD UREA NITROGEN 17 mg/dL (7-20); CALCIUM 9.2 mg/dL (8.4-10.2); CARBON DIOXIDE 30 mmol/L (22-30); CHLORIDE 105 mmol/L (98-107); GLUCOSE 125 mg/dL (75-110); POTASSIUM 4.1 mmol/L (3.6-5.0); SODIUM 144.2 mmol/L (137-145)
[2018-05-02] MEDS: OXYCODONE-ACETAMINOPHEN 5-325 MG TABLET PO PRN ×4 (05:10→20:26)
[2018-05-02] MEDS: HEPARIN SOD (PORCINE) 5,000 UNIT/ML 1 ML SYRINGE SUBCUT SCH ×3 (05:22→22:55)
[2018-05-02] MEDS: NORMAL SALINE 1000 ML 1,000 ML IV PRN ×2 (06:54→23:03)
[2018-05-02] MEDS ORDERED: ONDANSETRON 4 MG TAB.RAPDIS PO PRN (06:55)
[2018-05-02] MEDS ORDERED: LIDOCAINE 0.5% INJ-PF (5 MG/ML) 50 ML SDV ONE (07:21)
[2018-05-02] MEDS ORDERED: BUPIVACAINE HCL/DEX-WATER/PF 15 MG/2 ML AMPULE ONE (07:45)
[2018-05-02] MEDS ORDERED: LIDOCAINE 2% INJ-PF (20 MG/ML) 10 ML AMPUL ONE (07:46)
[2018-05-02] MEDS ORDERED: FENTANYL CITRATE INJ/PF 100 MCG/2 ML AMPUL ONE (07:47)
[2018-05-02] MEDS ORDERED: MIDAZOLAM 2 MG/2 ML INJ ONE (07:47)
[2018-05-02] MEDS ORDERED: EPHEDRINE SULFATE INJ 50 MG/1 ML AMPULE ONE (07:47)
[2018-05-02] MEDS ORDERED: PROPOFOL INJ 200 MG/20 ML VIAL IV ONE (07:48)
[2018-05-02] MEDS ORDERED: KETAMINE HCL INJ 500 MG/10 ML VIAL ONE (08:16)
[2018-05-02] MEDS ORDERED: FENTANYL CITRATE INJ/PF 100 MCG/2 ML AMPUL IV PRN ×3 (08:29)
[2018-05-02] MEDS ORDERED: ONDANSETRON HCL INJ/PF 4 MG/2 ML SDV IV PRN (08:29)
[2018-05-02] MEDS ORDERED: DIPHENHYDRAMINE HCL 50 MG/ML VIAL IV PRN (08:29)
[2018-05-02] MEDS ORDERED: PROMETHAZINE HCL INJ 25 MG/1 ML VIAL IV PRN ×2 (08:29)
[2018-05-02] MEDS ORDERED: MEPERIDINE HCL/PF INJ 25 MG/1 ML DISP.SYRIN IV PRN (08:29)
[2018-05-02] MEDS ORDERED: OXYCODONE-ACETAMINOPHEN 5-325 MG TABLET PO PRN ×2 (08:29)
[2018-05-02] MEDS: FUROSEMIDE 40 MG TABLET PO SCH (09:50)
[2018-05-02] MEDS: HYDRALAZINE HCL 50 MG TABLET PO SCH (09:50)
[2018-05-02] MEDS: PREGABALIN 75 MG CAPSULE PO SCH ×2 (09:51→18:00)
[2018-05-02] MEDS: AMLODIPINE BESYLATE 10 MG TABLET PO SCH (09:51)
[2018-05-02] MEDS: LANSOPRAZOLE 30 MG TAB.RAP.DR PO SCH ×2 (09:51→17:10)
[2018-05-02] MEDS: (PENDING PHARMACY ID) (Lovastatin [Lovastatin] 40 MG) PO SCH ×2 (12:21→18:23)
[2018-05-02] MEDS: VANCOMYCIN HCL 1,500 MG in DEXTROSE 5%-WATER 250 ML IV SCH ×2 (15:14→22:55)
--- NOTE | 2018-05-02 16:47 | OPERATIVE REPORT E ---
Operative Report NAME: JEISON YAP : 1965 AGE: 52Y DATE OF SURGERY: 05/02/2018 ROOM: 434 PREOPERATIVE DIAGNOSIS: Abscess, right popliteal area. POSTOPERATIVE DIAGNOSIS: Abscess, right popliteal area. OPERATION: Incision and drainage, right popliteal area. SURGEON: ESCOBAR MEDEL M.D. ANESTHESIA: Spinal. INDICATION: This is a 52-year-old male post right DKA more than 20 years ago. Patient noted pain along the right popliteal area for the past 3 days. Started to develop an abscess. PROCEDURE: After spinal anesthesia, the patient was placed in the prone position. The right popliteal area was then prepped and draped in the usual sterile fashion. A small incision was made transversely from the area of necrotic site about 2 mm in diameter. There was a gush of purulent material noted. This was subsequently probed and it appears to be going further distal about 2 cm further down to a pinpoint opening. This opening was slightly large. The cavity was copiously irrigated with saline solution. No other abscess noted along the area. This was subsequently packed with 1/4-inch Iodoform gauze. Sterile dressings placed over the operative site. Needle, instrument, and sponge count were all correct. Estimated blood loss about 5 mL. Patient was then brought to the recovery room in satisfactory condition. I did have to inject about 4 mL of 0.5% Xylocaine around the abscess since spinal anesthesia may not have worked well. DICTATING PHYSICIAN: ESCOBAR MEDEL M.D. [id number] PHY#: [id number] ID: [id number] JOB#: [id number] ACCT: [id number] cc:ESCOBAR MEDEL M.D. > MTDD
[2018-05-02] MEDS: MORPHINE SULFATE IR 15 MG TABLET PO PRN ×2 (17:11→22:59)
--- NOTE | 2018-05-02 19:47 | PDOC PROGRESS REPORT ---
Subjective Progress Note for:: 05/02/18 Subjective:: The patient's right stump is still O. He does report that since the surgery the pain is slightly improved. Reason For Visit: RIGHT BKA STUMP CELLULITIS Physical Exam Vital Signs: Temp Pulse Resp BP Pulse Ox 97.6 F 83 20 107/73 95 05/02/18 16:00 05/02/18 16:00 05/02/18 16:00 05/02/18 16:00 05/02/18 16:00 Intake & Output 05/01/18 05/02/18 05/03/18 06:59 06:59 06:59 Intake Total 1600 2571 Output Total 640 Balance 1600 1931 Weight 103.3 kg General appearance: PRESENT: cooperative, mild distress, obese - Body mass index 34.6, well-developed, well-nourished Head exam: PRESENT: atraumatic, normocephalic Eye exam: PRESENT: conjunctiva pink, EOMI. ABSENT: scleral icterus Ear exam: PRESENT: normal external ear exam Mouth exam: PRESENT: moist, tongue midline Teeth exam: PRESENT: poor dentation - Reports breaking several teeth while eating lunch. Neck exam: ABSENT: carotid bruit, JVD, lymphadenopathy Respiratory exam: PRESENT: clear to auscultation mendel, symmetrical, unlabored. ABSENT: rales, rhonchi, wheezes Cardiovascular exam: PRESENT: RRR, +S1, +S2. ABSENT: diastolic murmur, systolic murmur GI/Abdominal exam: PRESENT: normal bowel sounds, soft. ABSENT: distended, guarding, tenderness Extremities exam: PRESENT: other - Right below-knee amputation Musculoskeletal exam: PRESENT: other - Right below-knee amputation Neurological exam: PRESENT: alert, awake, oriented to person, oriented to place , oriented to time, oriented to situation, CN II-XII grossly intact Psychiatric exam: PRESENT: appropriate affect, normal mood. ABSENT: agitated, anxious Focused psych exam: ABSENT: restlessness Skin exam: PRESENT: other - Bulky dressing on right stump with serosanguineous drainage stains on the gauze. Results Laboratory Results: 05/02/18 03:40 05/02/18 03:40 05/02/18 05/02/18 03:40 03:40 WBC 7.8 RBC 4.68 Hgb 15.5 Hct 44.0 MCV 94 MCH 33.1 MCHC 35.2 RDW 14.0 Plt Count 144 L Seg Neutrophils % 78.0 Lymphocytes % 12.4 L Monocytes % 7.7 Eosinophils % 1.2 Basophils % 0.7 Absolute Neutrophils 6.1 Absolute Lymphocytes 1.0 Absolute Monocytes 0.6 Absolute Eosinophils 0.1 Absolute Basophils 0.1 Sodium 144.2 Potassium 4.1 Chloride 105 Carbon Dioxide 30 Anion Gap 9 BUN 17 Creatinine 0.90 Est GFR ( Amer) > 60 Est GFR (Non-Af Amer) > 60 Glucose 125 H Calcium 9.2 Impressions: Femur X-Ray 05/01/18 19:52 IMPRESSION: 1. No radiographic evidence of active osteitis. 2. Internally fixed old right femur fracture without adverse features. Knee X-Ray 05/01/18 19:52 IMPRESSION: Soft tissue swelling posterior to the proximal tibia and fibula. No radiographic findings of active osteitis. Assessment & Plan - Diagnosis (1) Cellulitis of right leg Is this a current diagnosis for this admission?: Yes Plan: Patient is on Zosyn and vancomycin. He had surgical incision and drainage of the abscess on the right leg. (2) Bacteremia due to Gram-positive bacteria Is this a current diagnosis for this admission?: Yes Plan: In less than 24 hours he has 1+ blood culture for gram-positive cocci. The Gram stain from the drainage from his abscess also had gram-positive cocci as well as gram-negative bacilli. We will continue his vancomycin and Zosyn until further results can be obtained from microbiology. (3) Hypertension Qualifiers: Hypertension type: essential hypertension Qualified Code(s): I10 - Essential (primary) hypertension Is this a current diagnosis for this admission?: Yes Plan: Continue Lasix, Norvasc and hydralazine. (4) Tobacco dependence Is this a current diagnosis for this admission?: Yes Plan: Continue nicotine patch and encourage smoking cessation. - Time Time Spent with patient: 25-34 minutes Smoking Cessation Education: 3 to 10 minutes Medications reviewed and adjusted accordingly: Yes
[2018-05-03] MEDS: PIPERACILLIN SODIUM/TAZOBACTAM 3.375 GM in NORMAL SALINE 100 ML IV SCH ×4 (00:39→17:29)
[2018-05-03] MEDS: OXYCODONE-ACETAMINOPHEN 5-325 MG TABLET PO PRN ×4 (01:52→20:18)
[2018-05-03] MEDS: MORPHINE SULFATE IR 15 MG TABLET PO PRN ×2 (03:44→10:56)
[2018-05-03] MEDS: LANSOPRAZOLE 30 MG TAB.RAP.DR PO SCH ×2 (05:15→17:19)
[2018-05-03 05:16] LABS: HEMATOCRIT 42.2 % (37.9-51.0); HEMOGLOBIN 14.5 g/dL (13.5-17.0); MEAN CORPUSCULAR HEMOGLOBIN 32.7 pg (27.0-33.4); MEAN CORPUSCULAR HGB CONC 34.3 g/dL (32.0-36.0); MEAN CORPUSCULAR VOLUME 95 fl (80-97); PLATELET COUNT 128 10^3/uL (150-450); RED BLOOD COUNT 4.43 10^6/uL (4.35-5.55); RED CELL DISTRIBUTION WIDTH 14.1 % (11.5-14.0); WHITE BLOOD COUNT 5.9 10^3/uL (4.0-10.5)
[2018-05-03] MEDS: HEPARIN SOD (PORCINE) 5,000 UNIT/ML 1 ML SYRINGE SUBCUT SCH ×3 (05:16→22:08)
[2018-05-03 05:39] LABS: ANION GAP 13 (5-19); BLOOD UREA NITROGEN 12 mg/dL (7-20); C-REACTIVE PROTEIN 50.6 mg/L (<10.0); CALCIUM 8.7 mg/dL (8.4-10.2); CARBON DIOXIDE 24 mmol/L (22-30); CHLORIDE 106 mmol/L (98-107); GLUCOSE 92 mg/dL (75-110); POTASSIUM 4.2 mmol/L (3.6-5.0); SODIUM 142.6 mmol/L (137-145)
[2018-05-03] MEDS: VANCOMYCIN HCL 1,500 MG in DEXTROSE 5%-WATER 250 ML IV SCH ×3 (06:26→22:09)
[2018-05-03] MEDS: FUROSEMIDE 40 MG TABLET PO SCH (08:35)
[2018-05-03] MEDS ORDERED: MORPHINE SULFATE 10 MG/ML INJ IV ONE (10:53)
[2018-05-03] MEDS: AMLODIPINE BESYLATE 10 MG TABLET PO SCH (10:57)
[2018-05-03] MEDS: HYDRALAZINE HCL 50 MG TABLET PO SCH (10:57)
[2018-05-03] MEDS: PREGABALIN 75 MG CAPSULE PO SCH ×2 (10:58→17:29)
--- NOTE | 2018-05-03 11:03 | PDOC PROGRESS REPORT ---
Subjective Progress Note for:: 05/03/18 Subjective:: 05/02/2018-the patient's right stump is still painful. He does report that since the surgery the pain is slightly improved. May 03, 2018-he is experiencing increased pain today. Reason For Visit: RIGHT BKA STUMP CELLULITIS Physical Exam Vital Signs: Temp Pulse Resp BP Pulse Ox 98.0 F 74 17 133/75 H 91 L 05/02/18 23:22 05/02/18 23:22 05/02/18 23:22 05/02/18 23:22 05/02/18 23:22 Intake & Output 05/02/18 05/03/18 05/04/18 06:59 06:59 06:59 Intake Total 1600 3471 250 Output Total 2090 Balance 1600 1381 250 Weight 103.3 kg 108.1 kg General appearance: PRESENT: cooperative, mild distress, well-developed Head exam: PRESENT: atraumatic, normocephalic Eye exam: PRESENT: conjunctiva pink. ABSENT: scleral icterus Ear exam: PRESENT: normal external ear exam Mouth exam: PRESENT: moist, tongue midline Respiratory exam: PRESENT: clear to auscultation mendel, symmetrical, unlabored. ABSENT: rales, rhonchi, wheezes Cardiovascular exam: PRESENT: RRR, +S1, +S2, systolic murmur - 2/6 Vascular exam: PRESENT: normal capillary refill GI/Abdominal exam: PRESENT: normal bowel sounds, soft. ABSENT: distended, guarding, tenderness Extremities exam: PRESENT: other - The abscess just above the popliteal fossa on the right leg has a packing in place. Despite increased pain there is no increase in drainage. There is no significant change or increase in erythema. Neurological exam: PRESENT: alert, awake, oriented to person, oriented to place , oriented to time, oriented to situation, CN II-XII grossly intact Psychiatric exam: PRESENT: appropriate affect. ABSENT: agitated Focused psych exam: ABSENT: restlessness Results Laboratory Results: 05/03/18 04:02 05/03/18 04:02 05/03/18 05/03/18 04:02 04:02 WBC 5.9 RBC 4.43 Hgb 14.5 Hct 42.2 MCV 95 MCH 32.7 MCHC 34.3 RDW 14.1 H Plt Count 128 L Sodium 142.6 Potassium 4.2 Chloride 106 Carbon Dioxide 24 Anion Gap 13 BUN 12 Creatinine 0.77 Est GFR ( Amer) > 60 Est GFR (Non-Af Amer) > 60 Glucose 92 Calcium 8.7 Magnesium 2.2 C-Reactive Protein 50.6 H Impressions: Femur X-Ray 05/01/18 19:52 IMPRESSION: 1. No radiographic evidence of active osteitis. 2. Internally fixed old right femur fracture without adverse features. Knee X-Ray 05/01/18 19:52 IMPRESSION: Soft tissue swelling posterior to the proximal tibia and fibula. No radiographic findings of active osteitis. Assessment & Plan - Diagnosis (1) Cellulitis of right leg Is this a current diagnosis for this admission?: Yes Plan: 05/02/2018-patient is on Zosyn and vancomycin. He had surgical incision and drainage of the abscess on the right leg. May 03, 2018-final culture results are not available yet. Continue vancomycin and Zosyn at this time. (2) Bacteremia due to Gram-positive bacteria Is this a current diagnosis for this admission?: Yes Plan: 05/02/2018-in less than 24 hours he has 1+ blood culture for gram-positive cocci. The Gram stain from the drainage from his abscess also had gram- positive cocci as well as gram-negative bacilli. We will continue his vancomycin and Zosyn until further results can be obtained from microbiology. May 03, 2018-so far one blood culture bottle has gram-positive cocci. I am awaiting final results. If it is only a single bottle from both sites and it could be a contaminant. (3) Hypertension Qualifiers: Hypertension type: essential hypertension Qualified Code(s): I10 - Essential (primary) hypertension Is this a current diagnosis for this admission?: Yes Plan: Continue Lasix, Norvasc and hydralazine. (4) Tobacco dependence Is this a current diagnosis for this admission?: Yes Plan: Continue nicotine patch and encourage smoking cessation. (5) Hypercholesteremia Is this a current diagnosis for this admission?: Yes Plan: May 03, 2018-patient is on lovastatin twice daily at home. He can take his own medication if available. If not we can substitute atorvastatin. - Time Time Spent with patient: 15-24 minutes Smoking Cessation Education: 3 to 10 minutes Medications reviewed and adjusted accordingly: Yes Anticipated discharge: Home
[2018-05-03] MEDS ORDERED: (PENDING PHARMACY ID) (Lovastatin [Lovastatin] 40 MG) PO SCH (11:05)
[2018-05-03 16:07] LABS: VANCOMYCIN,TROUGH 13.1 ug/mL (5.0-20.0)
[2018-05-03] MEDS: NORMAL SALINE 1000 ML 1,000 ML IV PRN (17:20)
--- NOTE | 2018-05-03 18:55 | PDOC PROGRESS REPORT ---
Subjective Progress Note for:: 05/03/18 Subjective:: Pains along I&D site right popliteal area Reason For Visit: RIGHT BKA STUMP CELLULITIS Physical Exam Vital Signs: Temp Pulse Resp BP Pulse Ox 98.0 F 83 15 133/75 H 91 L 05/02/18 23:22 05/03/18 14:43 05/03/18 14:43 05/02/18 23:22 05/02/18 23:22 Intake & Output 05/02/18 05/03/18 05/04/18 06:59 06:59 06:59 Intake Total 1600 3471 1600 Output Total 2090 Balance 1600 1381 1600 Weight 103.3 kg 108.1 kg Exam: Packing removed. Looks clean and dry. Inflammation has decreased. Results Laboratory Results: 05/03/18 04:02 05/03/18 04:02 05/03/18 05/03/18 04:02 04:02 WBC 5.9 RBC 4.43 Hgb 14.5 Hct 42.2 MCV 95 MCH 32.7 MCHC 34.3 RDW 14.1 H Plt Count 128 L Sodium 142.6 Potassium 4.2 Chloride 106 Carbon Dioxide 24 Anion Gap 13 BUN 12 Creatinine 0.77 Est GFR ( Amer) > 60 Est GFR (Non-Af Amer) > 60 Glucose 92 Calcium 8.7 Magnesium 2.2 C-Reactive Protein 50.6 H Impressions: Femur X-Ray 05/01/18 19:52 IMPRESSION: 1. No radiographic evidence of active osteitis. 2. Internally fixed old right femur fracture without adverse features. Knee X-Ray 05/01/18 19:52 IMPRESSION: Soft tissue swelling posterior to the proximal tibia and fibula. No radiographic findings of active osteitis. Assessment & Plan - Time Time Spent with patient: 15-24 minutes - Inpatient Certification Medical Necessity: Need for IV Antibiotics - Plan Summary Plan Summary: May be discharged on po antibiotics for a few more days. Follow up prn at the surgical clinic in 1-2 weeks. Could probably wear leg prosthesis in 1-2 weeks.
[2018-05-03] MEDS ORDERED: ATORVASTATIN CALCIUM 20 MG TABLET PO SCH (22:00)
[2018-05-04] MEDS: PIPERACILLIN SODIUM/TAZOBACTAM 3.375 GM in NORMAL SALINE 100 ML IV SCH ×2 (00:27→05:27)
[2018-05-04 02:20] VITALS: BP 140/81
[2018-05-04] MEDS: LANSOPRAZOLE 30 MG TAB.RAP.DR PO SCH (05:28)
[2018-05-04] MEDS: HEPARIN SOD (PORCINE) 5,000 UNIT/ML 1 ML SYRINGE SUBCUT SCH (05:29)
[2018-05-04 07:02] LABS: HEMATOCRIT 43.2 % (37.9-51.0); HEMOGLOBIN 15.1 g/dL (13.5-17.0); MEAN CORPUSCULAR HEMOGLOBIN 32.9 pg (27.0-33.4); MEAN CORPUSCULAR VOLUME 94 fl (80-97); PLATELET COUNT 131 10^3/uL (150-450); RED CELL DISTRIBUTION WIDTH 13.6 % (11.5-14.0); WHITE BLOOD COUNT 6.1 10^3/uL (4.0-10.5)
[2018-05-04 07:35] LABS: ANION GAP 9 (5-19); BLOOD UREA NITROGEN 13 mg/dL (7-20); C-REACTIVE PROTEIN 44.3 mg/L (<10.0); CALCIUM 8.8 mg/dL (8.4-10.2); CARBON DIOXIDE 27 mmol/L (22-30); CHLORIDE 105 mmol/L (98-107); GLUCOSE 115 mg/dL (75-110); SODIUM 140.7 mmol/L (137-145)
[2018-05-04] MEDS: VANCOMYCIN HCL 1,500 MG in DEXTROSE 5%-WATER 250 ML IV SCH (08:27)
[2018-05-04] MEDS: HYDRALAZINE HCL 50 MG TABLET PO SCH (09:51)
[2018-05-04] MEDS: PREGABALIN 75 MG CAPSULE PO SCH (09:51)
[2018-05-04] MEDS: FUROSEMIDE 40 MG TABLET PO SCH (09:51)
[2018-05-04] MEDS: AMLODIPINE BESYLATE 10 MG TABLET PO SCH (09:51)
--- NOTE | 2018-05-04 10:55 | PDOC DISCHARGE SUMMARY ---
General - Admit/Disc Date/PCP Admission Date/Primary Care Provider: 05/01/18 22:46 DAYDAY CHANG MD Discharge Date: 05/04/18 - Discharge Diagnosis (1) Cellulitis of right leg Is this a current diagnosis for this admission?: Yes Summary: The patient in fact had an abscess on the right stump just below the popliteal fossa. Surgery incised and drained the lesion. Packing was in place but this was removed yesterday. Surgery saw the patient and want him to follow-up in their office next week. I did call microbiology. Multiple organisms were growing from the abscess. There is a possibility of aerobic and anaerobic organisms. I will place the patient on Augmentin 875 twice daily for 5 additional days and this should have good coverage for aerobic and anaerobic organisms. (2) Bacteremia due to Gram-positive bacteria Is this a current diagnosis for this admission?: No Summary: There was only one of 4 bottles that showed a gram-positive coccus. The patient in fact does not have bacteremia as this is more likely a contaminant. (3) Hypertension Is this a current diagnosis for this admission?: Yes Summary: Patient's blood pressure was well controlled. He will continue on his same medications as an outpatient. (4) Tobacco dependence Is this a current diagnosis for this admission?: Yes Summary: Encouraged patient to continue with tobacco cessation. He seems to be tolerating his nicotine patch and he should continue this. (5) Hypercholesteremia Is this a current diagnosis for this admission?: Yes Summary: Continue statin therapy and follow cardiac diet as an outpatient. - Additional Information Resuscitation Status: Full Code Discharge Diet: Cardiac Discharge Activity: Activity As Tolerated, Other - Do not wear prosthesis until seen by surgery Prescriptions: Amox Tr/Potassium Clavulanate [Augmentin 875-125 mg Tablet] 1 tab PO BID 5 Days #10 tablet Oxycodone HCl/Acetaminophen [Oxycodone-Acetaminophen 10-325] 1 each PO Q6HP PRN 5 Days #10 tablet PRN Reason: Home Medications: Amlodipine Besylate 10 mg PO DAILY 09/28/16 Albuterol Sulfate [Ventolin Hfa 8 gm Mdi (1 Mdi/ER Disp)] 2 puff IN Q4HP PRN 06/19 Aripiprazole [Abilify 10 mg Tablet] 10 mg PO DAILY 05/02/18 Atorvastatin Calcium [Lipitor 80 mg Tablet] 80 mg PO DAILY 05/02/18 Benztropine Mesylate [Benztropine Mesylate 2 mg Tablet] 2 mg PO DAILY 05/02/18 Bupropion HCl [Bupropion Xl] 150 mg PO DAILY 05/02/18 Buspirone HCl [Buspar 15 mg Tablet] 15 mg PO TID 05/02/18 Citalopram Hydrobromide [Celexa 40 mg Tablet] 40 mg PO DAILY 05/02/18 Gabapentin [Neurontin 300 mg Capsule] 300 mg PO TID 05/02/18 Losartan Potassium [Cozaar 25 mg Tablet] 25 mg PO DAILY 05/02/18 Methocarbamol [Robaxin] 1,000 mg PO TIDP PRN 05/02/18 Metoprolol Succinate [Toprol Xl] 12.5 mg PO DAILY 05/02/18 Mirtazapine [Remeron 15 mg Tablet] 15 mg PO DAILY 05/02/18 Oxcarbazepine [Trileptal] 300 mg PO BID 05/02/18 Pregabalin [Lyrica 100 mg Capsule] 200 mg PO TID 05/02/18 Tamsulosin HCl [Flomax] 0.4 mg PO DAILY 05/02/18 Trazodone HCl [Desyrel] 300 mg PO QHS 05/02/18 Umeclidinium Brm/Vilanterol Tr [Anoro Ellipta 62.5-25 Mcg INH] 1 puff IN DAILY 05/02/18 Amlodipine Besylate [Norvasc 10 mg Tablet] 10 mg PO DAILY tablet 05/04/18 Amox Tr/Potassium Clavulanate [Augmentin 875-125 mg Tablet] 1 tab PO BID 5 Days #10 tablet 05/04/18 Atorvastatin Calcium [Lipitor 20 mg Tablet] 20 mg PO QHS tablet 05/04/18 Oxycodone HCl/Acetaminophen [Oxycodone-Acetaminophen 10-325] 1 each PO Q6HP PRN 5 Days #10 tablet 05/04/18 History of Present Illness History of Present Illness: JEISON YAP is a 52 year old male who noticed increasing discomfort and pain distal to the popliteal fossa on his right leg. There was swelling. He was unable to put on his prosthesis anymore. He then noticed drainage. He presented to the hospital and was admitted for IV antibiotic therapy. Surgery saw the patient and drain the lesion. They followed along with us. He was on Zosyn and vancomycin during his hospitalization. Surgery saw the patient yesterday and feels that he can be discharged with oral antibiotics. I will ask home health to see the patient for dressing changes. Physical Exam Vital Signs: Temp Pulse Resp BP Pulse Ox 97.7 F 71 18 140/81 H 90 L 05/04/18 00:00 05/04/18 00:00 05/04/18 00:00 05/04/18 00:00 05/04/18 00:00 Intake & Output 05/03/18 05/04/18 05/05/18 06:59 06:59 06:59 Intake Total 3471 3723 1350 Output Total 2090 3500 Balance 0244 207 5380 Weight 108.1 kg 107 kg General appearance: PRESENT: no acute distress, cooperative, well-developed Head exam: PRESENT: atraumatic, normocephalic Eye exam: PRESENT: conjunctiva pink. ABSENT: scleral icterus Mouth exam: PRESENT: moist, tongue midline Neck exam: PRESENT: full ROM. ABSENT: carotid bruit, JVD, lymphadenopathy Respiratory exam: PRESENT: clear to auscultation mendel, symmetrical, unlabored. ABSENT: rhonchi, stridor, wheezes Cardiovascular exam: PRESENT: RRR, +S1, +S2 GI/Abdominal exam: PRESENT: normal bowel sounds, soft. ABSENT: guarding, tenderness Extremities exam: PRESENT: other - Kerlix dressing over the right stump. I did not examine the wound this morning as I examined it last night. Neurological exam: PRESENT: awake, oriented to person, oriented to place, oriented to time, oriented to situation, CN II-XII grossly intact Psychiatric exam: PRESENT: appropriate affect, normal mood. ABSENT: agitated, anxious Skin exam: PRESENT: other - Wound as above Results Laboratory Results: 05/04/18 06:46 05/04/18 06:46 05/04/18 05/04/18 06:46 06:46 WBC 6.1 RBC 4.60 Hgb 15.1 Hct 43.2 MCV 94 MCH 32.9 MCHC 35.0 RDW 13.6 Plt Count 131 L Sodium 140.7 Potassium 4.0 Chloride 105 Carbon Dioxide 27 Anion Gap 9 BUN 13 Creatinine 0.71 Est GFR ( Amer) > 60 Est GFR (Non-Af Amer) > 60 Glucose 115 H Calcium 8.8 C-Reactive Protein 44.3 H Impressions: Femur X-Ray 05/01/18 19:52 IMPRESSION: 1. No radiographic evidence of active osteitis. 2. Internally fixed old right femur fracture without adverse features. Knee X-Ray 05/01/18 19:52 IMPRESSION: Soft tissue swelling posterior to the proximal tibia and fibula. No radiographic findings of active osteitis. Qualifiers - * PATIENT BEING DISCHARGED WITH ANY OF THE FOLLOWING DIAGNOSIS: No Plan Discharge Plan: As above. Prescriptions for analgesia and antibiotic therapy are provided to the patient. Time Spent: Less than 30 Minutes
== END 2018-05-04 12:57 | disposition home or self-care (01) | DRG 565 ==
LOC: ER 16:33 → EH 22:46 → 4S 05-02 01:37
PROVIDERS: ADMIT Internal Medicine; ATTEND Internal Medicine
PROC: 0J9N0ZX Drainage of Right Lower Leg Subcutaneous Tissue and Fascia, Open Approach, Diagnostic (ICD-10-PCS; principal; 2018-05-02 08:00)
DX: T87.43 Infection of amputation stump, right lower extremity (principal); L03.115 Cellulitis of right lower limb; J43.9 Emphysema, unspecified; B96.89 Other specified bacterial agents as the cause of diseases classified elsewhere; I10 Essential (primary) hypertension; E78.00 Pure hypercholesterolemia, unspecified; E78.5 Hyperlipidemia, unspecified; F17.210 Nicotine dependence, cigarettes, uncomplicated; K21.9 Gastro-esophageal reflux disease without esophagitis; Z90.49 Acquired absence of other specified parts of digestive tract; Z88.8 Allergy status to other drugs, medicaments and biological substances; Z79.51 Long term (current) use of inhaled steroids; Z79.899 Other long term (current) drug therapy; Z97.13 Presence of artificial right leg (complete) (partial); Z89.511 Acquired absence of right leg below knee; Z87.81 Personal history of (healed) traumatic fracture
CPT/HCPCS: 00400; 36415; 80048; 80053; 80202; 83605; 83735; 85025; 85027; 85652; 86140; 87040; 87070; 87075; 87077; 87186; 87205; 94660; 96365; 96375; 99285; 99406; A6266; J0295; J1644; J2250; J2270; J2405; J2543; J2704; J3010; J3370; J3490; J7030; J7060

== ENCOUNTER 2019-01-13 17:31 | Emergency (ER) | payer MEDICARE, MEDICAID ==
[2019-01-13] MEDS ORDERED: ONDANSETRON HCL INJ/PF 4 MG/2 ML SDV IV ONE (18:13)
--- NOTE | 2019-01-13 18:17 | ER Document Report ---
ED General - General Chief Complaint: Blurred Vision Stated Complaint: BLURRED VISION Time Seen by Provider: 01/13/19 18:05 Primary Care Provider: DAYDAY CHANG MD [NO LOCAL MD] - Follow up tomorrow TRAVEL OUTSIDE OF THE [place] IN LAST 30 DAYS: No - HPI Notes: 53-year-old male presents with nausea and hypotension dizziness and blurred vision. Relatively rapid onset proximal an hour prior to arrival. Last several hours been working outside helping his son. Denies any numbness or tingling or weakness there is lateralized. No headache, no chest pain. No pk abdominal pain does complain that his joints hurts as well. Moderate intensity, nonradiating. No other modifying factors, no other associated symptoms, no other provocative or palliative factors. Of note, he was recently diagnosed in the last couple of days with a 3.5 cm AAA - Related Data Allergies/Adverse Reactions: sumatriptan [From Imitrex] Allergy (Verified 01/13/19 17:33) tramadol [From Ultram] Allergy (Verified 01/13/19 17:33) Past Medical History - Social History Smoking Status: Unknown if Ever Smoked Frequency of alcohol use: None Family History: Reviewed & Not Pertinent - Past Medical History Cardiac Medical History: Reports: Hx Hypercholesterolemia, Hx Hypertension Pulmonary Medical History: Reports: Hx Asthma, Hx Bronchitis, Hx COPD, Hx Sleep Apnea Renal/ Medical History: Reports: Hx Kidney Stones. Denies: Hx Peritoneal Dialysis GI Medical History: Reports: Hx Gastroesophageal Reflux Disease. 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, right femur fracture right humerus fx Skin Medical History: Reports Hx Cellulitis - Take abscesses behind the right knee from prosthesis Traumatic Medical History: Reports: Hx Fractures - Right femur, right BKA right humerus fx Past Surgical History: Reports: Hx Abdominal Surgery - aneurysm, Hx Cholecystectomy, Hx Orthopedic Surgery - Right BKA, titanium sukumar to the right femur, right humerus ORIF, Hx Vascular Surgery - Aortic aneurysm repair - Immunizations Immunizations up to date: Yes Review of Systems - Review of Systems Notes: Review of systems as in the history of present illness, otherwise negative x 10 systems. Physical Exam - Vital signs Vitals: Temp Pulse Resp BP Pulse Ox 97.7 F 87 22 H 77/43 L 91 L 01/13/19 17:45 01/13/19 17:45 01/13/19 17:45 01/13/19 17:45 01/13/19 17:45 - Notes Notes: General: Well developed . Dry mucosa, moderate distress HEENT: Normocephalic, atraumatic. Pupils equal round reactive to light. No JVD. Chest: No trauma. Respiratory: Good air exchange, normal excursion. Cardiac: Regular rhythm. No murmurs or gallops. Abdomen: Soft, benign. Nondistended. Nontender. Pulsatile mass Back: No asymmetry or gross abnormality. Motor: Grossly normal power and tone. Neurologic: Alert, nonfocal. Cranial nerves II-12 are intact. Sensation intact. Vascular: Well perfused. Normal peripheral pulses. Skin: No petechiae or purpura. Course - Re-evaluation Re-evalutation: 01/13/19 18:17 Somewhat ill-appearing 53-year-old male presents with hypotension, diaphoresis. No clear etiology. May be secondary dehydration, heat exhaustion. A 3.5 cm AAA just diagnosed 3 days ago is less likely to be the cause. Consider silent ischemia. Or other etiology. Plan proceed with volume resuscitation, conference of labs, EKG x-ray, reevaluate. 01/13/19 22:01 Labs reviewed. CBC shows mild leukocytosis. Chemistries are unremarkable the exception of elevated creatinine, consistent with acute kidney injury. Troponin normal. ECG nonischemic. Chest x-ray unremarkable. Patient responded well to IV crystalloid resuscitation, blood pressure has normalized. Receives IV analgesics for some arthralgias. No deep muscle tenderness. Serial examination the abdomen shows no evolving abdominal tenderness or pain. Late in the course of his evaluation patient indicated that he just started taking 4 separate antihypertensive medicines that he not been on recently. Blood pressures have normalized. Patient likely has combination of dehydration and hypotension. Mild acute kidney injury, secondary to his antihypertensives and dehydration. He is tolerating p.o. fluids well, no vomiting. Will cease his blood pressure medicines today follows up with primary care physician within 24 to 40 hours, return if worsening. - Vital Signs Vital signs: Temp Pulse Resp BP Pulse Ox 98.7 F 87 19 103/74 96 01/13/19 23:01 01/13/19 17:45 01/13/19 23:01 01/13/19 23:01 01/13/19 23:01 - Laboratory Result Diagrams: 01/13/19 18:01 01/13/19 18:01 Laboratory results interpreted by me: 01/13/19 01/13/19 18:01 18:01 WBC 13.4 H Absolute Neutrophils 10.4 H Chloride 97 L Creatinine 1.97 H Est GFR ( Amer) 43 L Est GFR (Non-Af Amer) 36 L Glucose 139 H Direct Bilirubin 0.6 H Alkaline Phosphatase 157 H - EKG Interpretation by Me EKG shows normal: Sinus rhythm Rate: Normal, Tachycardia [place]/QRS: No: Left axis deviation When compared to previous EKG there are: No significant change Discharge - Discharge Clinical Impression: Renal insufficiency, Dehydration Condition: Stable Disposition: HOME, SELF-CARE Instructions: Dehydration ([facility]), Dizziness ([facility]) Additional Instructions: Your kidney function seems to have deteriorated a bit, this is likely due to combination of your blood pressure medicines and dehydration. Please increase your fluid intake, hold your blood pressure medicines until you speak with your primary care doctor tomorrow. Referrals: DAYDAY CHANG MD [NO LOCAL MD] - Follow up tomorrow
[2019-01-13 18:22] LABS: ABSOLUTE BASOPHILS # (AUTO) 0.1 10^3/uL (0.0-0.2); ABSOLUTE EOSINOPHILS # (AUTO) 0.2 10^3/uL (0.0-0.6); ABSOLUTE LYMPHOCYTES (AUTO) 1.8 10^3/uL (0.5-4.7); ABSOLUTE MONOCYTES (AUTO) 0.8 10^3/uL (0.1-1.4); ABSOLUTE NEUT (AUTO) 10.4 10^3/uL (1.7-8.2); BASOPHILS % (AUTO) 0.8 % (0-2); EOSINOPHILS % (AUTO) 1.1 % (0-6); HEMATOCRIT 48.2 % (37.9-51.0); HEMOGLOBIN 16.4 g/dL (13.5-17.0); LYMPHOCYTES % (AUTO) 13.8 % (13-45); MEAN CORPUSCULAR HEMOGLOBIN 31.6 pg (27.0-33.4); MEAN CORPUSCULAR HGB CONC 34.1 g/dL (32.0-36.0); MEAN CORPUSCULAR VOLUME 93 fl (80-97); MONOCYTES % (AUTO) 6.3 % (3-13); PLATELET COUNT 228 10^3/uL (150-450); RED BLOOD COUNT 5.19 10^6/uL (4.35-5.55); RED CELL DISTRIBUTION WIDTH 13.7 % (11.5-14.0); TOTAL CELLS COUNTED % (AUTO) 100 %; WHITE BLOOD COUNT 13.4 10^3/uL (4.0-10.5)
[2019-01-13 18:24] LABS: VENOUS BLOOD BASE EXCESS 1.3 mmol/L; VENOUS BLOOD HCO3 28.3 mmol/L (20-32); VENOUS BLOOD PCO2 52.9 mmHg (35-63); VENOUS BLOOD PH 7.35 (7.30-7.42)
[2019-01-13] MEDS: RINGERS SOLUTION,LACTATED 1,000 ML IV PRN ×2 (18:25→19:26)
[2019-01-13 18:38] LABS: INTERNATIONAL RATION (INR) 1.02; PROTHROMBIN TIME 13.4 SEC (11.4-15.4)
[2019-01-13 18:39] LABS: ALKALINE PHOSPHATASE 157 U/L (38-126); ANION GAP 11 (5-19); ASPARTATE AMINO TRANSFERASE 47 U/L (17-59); BILIRUBIN,DIRECT 0.6 mg/dL (0.0-0.4); BILIRUBIN,TOTAL 1.3 mg/dL (0.2-1.3); BLOOD UREA NITROGEN 13 mg/dL (7-20); CALCIUM 9.5 mg/dL (8.4-10.2); CARBON DIOXIDE 30 mmol/L (22-30); CHLORIDE 97 mmol/L (98-107); GLUCOSE 139 mg/dL (75-110); POTASSIUM 3.8 mmol/L (3.6-5.0); TOTAL PROTEIN 8.1 g/dL (6.3-8.2)
--- NOTE | 2019-01-13 18:42 | RADIOLOGY REPORT (SQ) ---
EXAM DESCRIPTION: CHEST SINGLE VIEW COMPLETED DATE/TIME: 01/13/2019 6:32 pm REASON FOR STUDY: Hypotension COMPARISON: 01/25/2016 EXAM PARAMETERS: NUMBER OF VIEWS: One view. TECHNIQUE: Single frontal radiographic view of the chest acquired. RADIATION DOSE: NA LIMITATIONS: None. FINDINGS: LUNGS AND PLEURA: No opacities, masses or pneumothorax. No pleural effusion. MEDIASTINUM AND HILAR STRUCTURES: No masses. Contour normal. HEART AND VASCULAR STRUCTURES: Heart normal in size. Normal vasculature. BONES: No acute findings. HARDWARE: None in the chest. OTHER: No other significant finding. IMPRESSION: NO ACUTE RADIOGRAPHIC FINDING IN THE CHEST. TECHNICAL DOCUMENTATION: JOB ID: [id number] [employer]- All Rights Reserved Reading location - IP/workstation name: [email or web address]
[2019-01-13] MEDS ORDERED: MORPHINE SULFATE 10 MG/ML INJ IV ONE (19:29)
[2019-01-13 20:42] LABS: APPEARANCE,URINE SLIGHTLY-CLOUDY; BILIRUBIN,URINE NEGATIVE (NEGATIVE); COLOR,URINE YELLOW; GLUCOSE, URINE NEGATIVE (NEGATIVE); KETONES,URINE NEGATIVE (NEGATIVE); LEUKOCYTE ESTERASE,URINE NEGATIVE (NEGATIVE); NITRITE,URINE NEGATIVE (NEGATIVE); PROTEIN,URINE NEGATIVE (NEGATIVE); URINE SPECIFIC GRAVITY 1.012; UROBILINOGEN,URINE NEGATIVE mg/dL (<2.0)
[2019-01-13 23:06] VITALS: BP 103/74
--- NOTE | 2019-01-14 11:25 | EKG REPORT ---
SEVERITY:- OTHERWISE NORMAL ECG - SINUS RHYTHM BORDERLINE RIGHT AXIS DEVIATION : Confirmed by: Stu Pedraza 14-Jan-2019 11:24:33
== END 2019-01-13 23:14 | disposition home or self-care (01) ==
LOC: ER 17:31
DX: N28.9 Disorder of kidney and ureter, unspecified (principal); H53.8 Other visual disturbances; E86.0 Dehydration; E78.00 Pure hypercholesterolemia, unspecified; I10 Essential (primary) hypertension; Z87.442 Personal history of urinary calculi; Z89.511 Acquired absence of right leg below knee
CPT/HCPCS: 93005; 99284; 96361; 96374; 96375; 36415; 87040; 87086; 85025; 85610; 80053; 81001; 84484; 82803; 83605; 71045; 93010; J2270; J2405; J7120

== ENCOUNTER 2019-03-13 19:52 | Emergency (ER) | payer MEDICARE, MEDICAID ==
--- NOTE | 2019-03-13 20:04 | ER Document Report ---
ED Medical Screen (RME) - General Chief Complaint: Knee Pain Stated Complaint: RIB PAIN Time Seen by Provider: 03/13/19 19:59 TRAVEL OUTSIDE OF THE [place] IN LAST 30 DAYS: No - HPI Notes: 03/13/19 20:02 Patient is a 53-year-old male with past medical history of hypertension and COPD who was also recently found to have lung nodules that he is scheduled to have a biopsy on for possible cancer who presents with 2 complaints. The first is left knee pain that is been present for about a week since a fall that he had. Patient states that his knees gave out from him and he has been having a burning sensation since then. Patient does have a BKA on the right. Patient also complains of left lower anterior chest pain near his lower rib that started today and hurts when he takes a deep breath. No fever. Pain does not radiate. No dyspnea on exertion or shortness of breath or urinary. I have treated and performed a rapid initial assessment of this patient. A comprehensive ED assessment and evaluation of the patient, analysis of test results and completion of medical decision making process will be conducted by additional ED providers. PHYSICAL EXAMINATION: GENERAL: Well-appearing, well-nourished and in no acute distress. A&Ox4. Answers questions appropriately. Lungs: Grossly CTAB Heart: RRR Knee: Full range of motion to passive/active. No obvious erythema or large effusion. - Related Data Allergies/Adverse Reactions: sumatriptan [From Imitrex] Allergy (Verified 01/13/19 17:33) tramadol [From Ultram] Allergy (Verified 01/13/19 17:33) Past Medical History - Past Medical History Cardiac Medical History: Reports: Hx Hypercholesterolemia, Hx Hypertension Pulmonary Medical History: Reports: Hx Asthma, Hx Bronchitis, Hx COPD, Hx Sleep Apnea Renal/ Medical History: Reports: Hx Kidney Stones. Denies: Hx Peritoneal Di alysis GI Medical History: Reports: Hx Gastroesophageal Reflux Disease. 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
[2019-03-13 21:04] LABS: ABSOLUTE BASOPHILS # (AUTO) 0.1 10^3/uL (0.0-0.2); ABSOLUTE EOSINOPHILS # (AUTO) 0.1 10^3/uL (0.0-0.6); ABSOLUTE LYMPHOCYTES (AUTO) 1.7 10^3/uL (0.5-4.7); ABSOLUTE MONOCYTES (AUTO) 0.7 10^3/uL (0.1-1.4); ABSOLUTE NEUT (AUTO) 6.9 10^3/uL (1.7-8.2); BASOPHILS % (AUTO) 0.6 % (0-2); EOSINOPHILS % (AUTO) 1.5 % (0-6); HEMATOCRIT 42.1 % (37.9-51.0); HEMOGLOBIN 14.5 g/dL (13.5-17.0); LYMPHOCYTES % (AUTO) 17.8 % (13-45); MEAN CORPUSCULAR HEMOGLOBIN 32.3 pg (27.0-33.4); MEAN CORPUSCULAR HGB CONC 34.5 g/dL (32.0-36.0); MEAN CORPUSCULAR VOLUME 93 fl (80-97); MONOCYTES % (AUTO) 7.3 % (3-13); PLATELET COUNT 186 10^3/uL (150-450); RED CELL DISTRIBUTION WIDTH 13.9 % (11.5-14.0); SEGMENTED NEUTROPHILS % (AUTO) 72.8 % (42-78); TOTAL CELLS COUNTED % (AUTO) 100 %; WHITE BLOOD COUNT 9.5 10^3/uL (4.0-10.5)
--- NOTE | 2019-03-13 21:06 | RADIOLOGY REPORT (SQ) ---
EXAM DESCRIPTION: XR KNEE 4 OR MORE VIEWS COMPLETED DATE/TME: 03/13/2019 20:04 CLINICAL HISTORY: 53 years, Male, left knee pain s/p injury COMPARISON: None available NUMBER OF VIEWS: Four TECHNIQUE: Frontal, oblique, and lateral radiographs of the left knee were obtained LIMITATIONS: None. FINDINGS: Mild tricompartmental osteoarthrosis, designated by joint space narrowing and marginal osteophyte formation. No definite acute fracture or dislocation is identified. There is likely a small knee joint effusion. 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 No underlying acute osseous anomaly. copyright 2010 [email or web address]- All Rights Reserved
--- NOTE | 2019-03-13 21:08 | RADIOLOGY REPORT (SQ) ---
EXAM DESCRIPTION: XR RIBS LEFT WITH CHEST, 3 views COMPLETED DATE/TME: 03/13/2019 20:04 CLINICAL HISTORY: 53 years, Male, left anterior lower rib pain, known lung nodules COMPARISON: X-ray chest 01/13/2019 NUMBER OF VIEWS: TECHNIQUE: LIMITATIONS: None. FINDINGS: No evidence of rib fracture. There are very small nodules, particularly in the left lung. A similar finding was present on the prior study. There is possible emphysema. No evidence of acute pulmonary infiltrate or pleural effusion. The heart and mediastinum are unremarkable Pulmonary vascularity appears normal. IMPRESSION: No evidence of rib fracture. Very small pulmonary nodules, particularly in the left lung. These may represent granulomas. Please correlate clinically. Possible emphysema. copyright 2010 [employer]- All Rights Reserved
[2019-03-13 21:09] LABS: INTERNATIONAL RATION (INR) 0.98
[2019-03-13 21:23] LABS: ALBUMIN 4.3 g/dL (3.5-5.0); ALKALINE PHOSPHATASE 150 U/L (38-126); ANION GAP 10 (5-19); ASPARTATE AMINO TRANSFERASE 27 U/L (17-59); BILIRUBIN,DIRECT 0.2 mg/dL (0.0-0.4); BILIRUBIN,TOTAL 0.6 mg/dL (0.2-1.3); BLOOD UREA NITROGEN 9 mg/dL (7-20); CALCIUM 9.3 mg/dL (8.4-10.2); CARBON DIOXIDE 29 mmol/L (22-30); CHLORIDE 99 mmol/L (98-107); GLUCOSE 111 mg/dL (75-110); POTASSIUM 3.6 mmol/L (3.6-5.0)
--- NOTE | 2019-03-13 21:26 | EKG REPORT ---
SEVERITY:- OTHERWISE NORMAL ECG - SINUS TACHYCARDIA : Confirmed by: Richie Camacho MD 13-Mar-2019 21:26:00
[2019-03-13] MEDS ORDERED: MORPHINE SULFATE 10 MG/ML INJ IV ONE (21:51)
--- NOTE | 2019-03-13 21:53 | ER Document Report ---
ED General - General Chief Complaint: Chest Pain Stated Complaint: RIB PAIN Time Seen by Provider: 03/13/19 19:59 Primary Care Provider: ROBERTO MELGAR FNP-C [Primary Care Provider] - Follow up as needed Notes: Patient is a 53-year-old male that comes emergency department for 2 complaints. He states that he is a smoker with a history of COPD that recently discovered lung nodules on chest x-ray and he is scheduled for a follow-up with pulmonology next week. In addition to this he started having pain in the left front to lower chest that is most noticeable when he takes a deep breath. He started having this over the past day. He has a mild cough but this is unchanged, denies fever. He denies nausea or vomiting, flank pain. Second complaint is he states his left knee gave out and he fell on it 1 week ago, he states it still hurts and west and he is worried there might be a fracture. He has a right B KA. Remaining medical history includes hypertension, hyperlipidemia, AAA repair, and right BKA. He is on chronic pain management with 10 mg of oxycodone every 6 hours. TRAVEL OUTSIDE OF THE [place] IN LAST 30 DAYS: No - Related Data Allergies/Adverse Reactions: sumatriptan [From Imitrex] Allergy (Verified 01/13/19 17:33) tramadol [From Ultram] Allergy (Verified 01/13/19 17:33) Past Medical History - General Information source: Patient - Social History Smoking Status: Current Every Day Smoker Smoking Education Provided: Yes - <3 min Frequency of alcohol use: None Drug Abuse: None Lives with: Family Family History: Reviewed & Not Pertinent Patient has suicidal ideation: No Patient has homicidal ideation: No - Past Medical History Cardiac Medical History: Reports: Hx Hypercholesterolemia, Hx Hypertension Pulmonary Medical History: Reports: Hx Asthma, Hx Bronchitis, Hx COPD, Hx Sleep Apnea Renal/ Medical History: Reports: Hx Kidney Stones. Denies: Hx Peritoneal Dialysis GI Medical History: Reports: Hx Gastroesophageal Reflux Disease. 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, right femur fracture right humerus fx Skin Medical History: Reports Hx Cellulitis - Take abscesses behind the right knee from prosthesis Traumatic Medical History: Reports: Hx Fractures - Right femur, right BKA right humerus fx Past Surgical History: Reports: Hx Abdominal Surgery - aneurysm, Hx Cholecystectomy, Hx Orthopedic Surgery - Right BKA, titanium sukumar to the right femur, right humerus ORIF, Hx Vascular Surgery - Aortic aneurysm repair - Immunizations Immunizations up to date: Yes Hx Diphtheria, Pertussis, Tetanus Vaccination: Yes Review of Systems - Review of Systems Constitutional: No symptoms reported EENT: No symptoms reported Cardiovascular: No symptoms reported Respiratory: See HPI Gastrointestinal: No symptoms reported Genitourinary: No symptoms reported Male Genitourinary: No symptoms reported Musculoskeletal: See HPI Skin: No symptoms reported Hematologic/Lymphatic: No symptoms reported Neurological/Psychological: No symptoms reported Physical Exam - Vital signs Vitals: Temp Pulse BP Pulse Ox 98.3 F 100 157/87 H 95 03/13/19 19:56 03/13/19 19:56 03/13/19 19:56 03/13/19 19:56 - Notes Notes: GENERAL: Alert, interacts well. No acute distress. HEAD: Normocephalic, atraumatic. EYES: Pupils equal, round, and reactive to light. Extraocular movements intact. ENT: Oral mucosa moist, tongue midline. Oropharynx unremarkable. Airway patent. Nares patent, no nasal septal hematoma, TM's intact. NECK: Full range of motion. Supple. Trachea midline. LUNGS: Decreased breath sounds bilaterally. No wheezes, rales, or rhonchi. No respiratory distress. Very mild tenderness with palpation over the anterior lower chest, this is somewhat general and not particular or specific. No abnormal erythema or swelling, no crepitus. HEART: Regular rate and rhythm. No murmur ABDOMEN: Soft, non-tender. Non-distended. Bowel sounds present in all 4 quadrants. GENITOURINARY: Deferred EXTREMITIES: No edema, normal radial and dorsalis pedis pulses. No cyanosis. Pain with range of motion of the left knee which is mild, range of motion is still intact, mild pain with palpation generally over the anterior knee, no abnormal erythema or swelling, normal extremity exam otherwise. Right BKA. BACK: no cervical, thoracic, lumbar midline tenderness. No saddle anesthesia, normal distal neurovascular exam. Moves all extremities in full range of motion. NEUROLOGICAL: Alert and oriented x3. Normal speech. Cranial nerves II through XII grossly intact. PSYCH: Normal affect, normal mood. SKIN: Warm, dry, normal turgor. No rashes or lesions noted. Course - Re-evaluation Re-evalutation: Imaging of the knee unremarkable. Patient has mild generalized tenderness with palpation of the knee but no severe swelling, no effusion on imaging, no abnormal erythema, range of motion is somewhat painful but intact. Lower extremity exam is normal otherwise. Appears to be soft tissue injury only. Patient can still ambulate, has his own brace that he is using and he accomplishes this well. He states he will follow-up with orthopedics if this continues. Chest x-ray nonspecific, troponin negative, CBC, chemistry nonspecific, lungs clear on my exam. He does have some tenderness with chest wall palpation on exam as well. However patient states it hurts when he takes a deep breath and he feels like this is worsening. He also reports that he is being worked up for lung nodules. I discussed with patient. He is a smoker. He has never had a blood clot before. He does have intermittent tachycardia. He states he has not had CAT scan imaging yet of his chest with contrast. He is supposed to see pulmonology next week. Decision was made to rule out blood clot and if this is negative to provide him with a copy of the scan for pulmonology follow-up. Patient is very happy with this plan. Unfortunately contrast bolus timing was not perfect but there is no obvious or large clot. This does show a 4 mm nodule. Patient also has some chest wall pain, suspect this is the source of his pain. Symptoms present for over a day, troponin negative, very low suspicion of ACS. Provided with copy of his imaging, discussed the follow-up and return precautions. Patient states appreciation and agreement. Stable time of discharge. - Vital Signs Vital signs: Temp Pulse Resp BP Pulse Ox 98.3 F 100 16 124/74 92 03/14/19 00:53 03/13/19 19:56 03/14/19 00:52 03/14/19 00:53 03/14/19 00:52 - Laboratory Result Diagrams: 03/13/19 20:49 03/13/19 20:49 Laboratory results interpreted by me: 03/13/19 20:49 Glucose 111 H Alkaline Phosphatase 150 H Discharge - Discharge Clinical Impression: Painful breathing, Left-sided chest wall pain Left knee injury Qualifiers: Encounter type: initial encounter Qualified Code(s): S89.92XA - Unspecified in jury of left lower leg, initial encounter Condition: Stable Disposition: HOME, SELF-CARE Additional Instructions: Follow-up with your hearing dog trainer as planned, take the report and the disc with you when you go. You can apply the topical patches to the knee, ice the knee, stay off the knee as much as possible. The x-ray does not show a fracture. Symptoms should resolve with time. The pain over your chest wall should eventually resolve with time as well. Follow-up with primary care for additional management. Return if you worsen including developing redness or swelling of the knee, chest pain, fever, or any other concerning or worsening symptoms. Prescriptions: Lidocaine [Lidoderm 5% (700 mg) Transdermal Patch] 1 patch TP DAILY #30 adh..patch Referrals: ROBERTO MELGAR FNP-C [Primary Care Provider] - Follow up as needed
--- NOTE | 2019-03-13 23:59 | RADIOLOGY REPORT (SQ) ---
EXAM DESCRIPTION: CT CHEST ANGIOGRAPHY WITHOUT THEN WITH IV CONTRAST COMPLETED DATE/TME: 03/13/2019 21:50 CLINICAL HISTORY: 53 years, Male, new lung nodules, left sided chest pain; SOB; CREAT 0.84 COMPARISON: None. TECHNIQUE: Contrast enhanced CT of the chest was acquired. Oblique MIPS were created. Images stored on PACS. All CT scanners at this facility use dose modulation, iterative reconstruction, and/or weight based dosing when appropriate to reduce radiation dose to as low as reasonably achievable (ALARA). [facility]: Dose Right [facility]: CareDose [facility]: Dose Right [facility]: Teradose 4D [facility]: [employer] LIMITATIONS: None. FINDINGS: Central airways are patent. Mild upper zone predominant emphysematous changes are noted. Lung windows show bands of opacity about the basilar segments of both lower lobes, indicating areas of atelectasis and/or scar. A calcified granuloma is noted about the left lower lobe superior segment. There is a solid subpleural 4 mm nodule within the right upper lobe on image 39 of series 3. No suspicious features. Additional 3 mm subpleural nodule within the lingula on image 79 of series 3. Mediastinal windows show no significant hilar or mediastinal lymph node enlargement. Trace pericardial effusion is noted. Heart and great vessels show no suspicious abnormality. The study is nearly nondiagnostic for the evaluation of pulmonary emboli secondary to inadequate contrast bolus timing. No large filling defect is identified within the main pulmonary artery or within the right/left pulmonary arteries. Mild calcifications are noted about the thoracic aorta. Limited evaluation of the upper abdomen reveals no suspicious finding. Bone windows show no destructive osseous lesions. IMPRESSION: Substantially limited assessment for pulmonary emboli secondary to inadequate contrast bolus timing. No large central filling defect identified within the main pulmonary artery or the right/left pulmonary arteries. Otherwise, no acute findings within the chest. 4.0 mm solid pulmonary nodule within the upper lobe. A non-contrast Chest CT at 12 months is optional. If performed and the nodule is stable at 12 months, no further follow-up is recommended. These guidelines do not apply to immunocompromised patients and patients with cancer. Follow up in patients with significant comorbidities as clinically warranted. For lung cancer screening, adhere to Lung-RADS guidelines. Reference: Radiology. 2017; 284(1):228-43. TECHNICAL DOCUMENTATION: Quality ID # 436: Final reports with documentation of one or more dose reduction techniques (e.g., Automated exposure control, adjustment of the mA and/or kV according to patient size, use of iterative reconstruction technique) copyright 2011 [employer]- All Rights Reserved
[2019-03-14 01:15] VITALS: BP 124/74
== END 2019-03-14 01:17 | disposition home or self-care (01) ==
LOC: ER 19:52
DX: S89.92XA Unspecified injury of left lower leg, initial encounter (principal); R07.89 Other chest pain; R07.81 Pleurodynia; M25.562 Pain in left knee; G89.29 Other chronic pain; W19.XXXA Unspecified fall, initial encounter; Z89.511 Acquired absence of right leg below knee; F17.200 Nicotine dependence, unspecified, uncomplicated; I10 Essential (primary) hypertension; J44.9 Chronic obstructive pulmonary disease, unspecified; E78.5 Hyperlipidemia, unspecified; Z88.6 Allergy status to analgesic agent
CPT/HCPCS: 36415; 71275; 80053; 84484; 85025; 85610; 93005; 93010; 99284

== ENCOUNTER 2019-04-01 13:05 | Inpatient (IN) | payer MEDICARE, MEDICAID ==
[2019-04-01] MEDS ORDERED: NORMAL SALINE 1000 ML 3,000 ML IV ONE (13:10)
--- NOTE | 2019-04-01 13:29 | ER Document Report ---
ED Medical Screen (RME) - General Chief Complaint: Chest Pain Stated Complaint: CHEST PAIN Primary Care Provider: ROBERTO MELGAR FNP-C [Primary Care Provider] - Follow up as needed Mode of Arrival: Medic Information source: Patient TRAVEL OUTSIDE OF THE [place] IN LAST 30 DAYS: No - HPI Notes: 04/01/19 13:24 53-year-old male with a history of prediabetes, HTN and a right BKA presents via EMS for complaints of new onset shortness of breath, left-sided neck pain, dizziness. Patient was given sublingual nitro and baby aspirin in route. Patient does have a history of having a cardiac blockage approximately 50% per patient, has not had any further intervention by director business travel. Patient in room, blood pressure , will start IV fluids this is likely due to getting nitro in route, this did relieve his chest pressure. ROS: Other than noted above, the 12 point review of systems was reviewed with the patient and were negative, all pertinent findings are included in the HPI. PHYSICAL EXAMINATION: Vital signs reviewed. GENERAL: Well-appearing, well-nourished and in no acute distress. HEAD: Atraumatic, normocephalic. NECK: Normal range of motion CV: Heart regular rate and rhythm LUNGS: No respiratory distress ABD: generalized abd pain NEUROLOGICAL: Normal speech PSYCH: Normal mood, normal affect. MDM: Patient seen and examined for rapid initial assessment. Vital signs reviewed. A comprehensive ED assessment and evaluation of the patient, analysis of test results and completion of the medical decision making process will be conducted by additional ED providers. *Note is created using voice recognition software and may contain spelling, syntax or grammatical errors. - Related Data Allergies/Adverse Reactions: sumatriptan [From Imitrex] Allergy (Verified 01/13/19 17:33) tramadol [From Ultram] Allergy (Verified 01/13/19 17:33) Past Medical History - Past Medical History Cardiac Medical History: Reports: Hx Hypercholesterolemia, Hx Hypertension Pulmonary Medical History: Reports: Hx Asthma, Hx Bronchitis, Hx COPD, Hx Sleep Apnea Renal/ Medical History: Reports: Hx Kidney Stones. Denies: Hx Peritoneal Dialysis GI Medical History: Reports: Hx Gastroesophageal Reflux Disease. Denies: Hx Diverticulitis, Hx Pancreatitis, Hx Ulcerative Colitis Musculoskeltal Medical History: Reports Hx Musculoskeletal Trauma - 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, right femur fracture right humerus fx Skin Medical History: Reports Hx Cellulitis - Take abscesses behind the right knee from prosthesis Traumatic Medical History: Reports: Hx Fractures - Right femur, right BKA right humerus fx Past Surgical History: Reports: Hx Abdominal Surgery - aneurysm, Hx Cholecystectomy, Hx Orthopedic Surgery - Right BKA, titanium sukumar to the right femur, right humerus ORIF, Hx Vascular Surgery - Aortic aneurysm repair - Immunizations Immunizations up to date: Yes Hx Diphtheria, Pertussis, Tetanus Vaccination: Yes Doctor's Discharge - Discharge Referrals: ROBERTO MELGAR FNP-C [Primary Care Provider] - Follow up as needed
[2019-04-01 13:49] LABS: ABSOLUTE BASOPHILS # (AUTO) 0.1 10^3/uL (0.0-0.2); ABSOLUTE EOSINOPHILS # (AUTO) 0.1 10^3/uL (0.0-0.6); ABSOLUTE LYMPHOCYTES (AUTO) 1.6 10^3/uL (0.5-4.7); ABSOLUTE MONOCYTES (AUTO) 0.6 10^3/uL (0.1-1.4); ABSOLUTE NEUT (AUTO) 6.4 10^3/uL (1.7-8.2); BASOPHILS % (AUTO) 0.6 % (0-2); EOSINOPHILS % (AUTO) 0.9 % (0-6); HEMATOCRIT 44.9 % (37.9-51.0); HEMOGLOBIN 15.9 g/dL (13.5-17.0); LYMPHOCYTES % (AUTO) 18.1 % (13-45); MEAN CORPUSCULAR HEMOGLOBIN 32.9 pg (27.0-33.4); MEAN CORPUSCULAR HGB CONC 35.4 g/dL (32.0-36.0); MEAN CORPUSCULAR VOLUME 93 fl (80-97); MONOCYTES % (AUTO) 7.4 % (3-13); PLATELET COUNT 184 10^3/uL (150-450); RED BLOOD COUNT 4.83 10^6/uL (4.35-5.55); RED CELL DISTRIBUTION WIDTH 13.6 % (11.5-14.0); TOTAL CELLS COUNTED % (AUTO) 100 %; WHITE BLOOD COUNT 8.8 10^3/uL (4.0-10.5)
[2019-04-01 14:12] LABS: ALBUMIN 4.5 g/dL (3.5-5.0); ALKALINE PHOSPHATASE 272 U/L (38-126); ANION GAP 10 (5-19); ASPARTATE AMINO TRANSFERASE 68 U/L (17-59); BILIRUBIN,DIRECT 0.5 mg/dL (0.0-0.4); BILIRUBIN,TOTAL 1.3 mg/dL (0.2-1.3); BLOOD UREA NITROGEN 16 mg/dL (7-20); CALCIUM 9.7 mg/dL (8.4-10.2); CARBON DIOXIDE 33 mmol/L (22-30); CHLORIDE 97 mmol/L (98-107); CREATINE KINASE 174 U/L (55-170); GLUCOSE 99 mg/dL (75-110); POTASSIUM 3.4 mmol/L (3.6-5.0); TOTAL PROTEIN 7.8 g/dL (6.3-8.2)
--- NOTE | 2019-04-01 14:20 | RADIOLOGY REPORT (SQ) ---
EXAM DESCRIPTION: CHEST SINGLE VIEW COMPLETED DATE/TIME: 04/01/2019 2:10 pm REASON FOR STUDY: cp COMPARISON: 01/13/2019 NUMBER OF VIEWS: One view. TECHNIQUE: Single frontal radiographic view of the chest acquired. LIMITATIONS: None. FINDINGS: LUNGS AND PLEURA: No opacities, masses or pneumothorax. No pleural effusion. MEDIASTINUM AND HILAR STRUCTURES: No masses. Contour normal. HEART AND VASCULAR STRUCTURES: Heart normal in size. Normal vasculature. BONES: No acute findings. HARDWARE: None in the chest. OTHER: No other significant finding. IMPRESSION: NO SIGNIFICANT RADIOGRAPHIC FINDING IN THE CHEST. TECHNICAL DOCUMENTATION: JOB ID: [id number] [email or web address]- All Rights Reserved Reading location - IP/workstation name: [email or web address]
[2019-04-01 14:25] LABS: CREATINE KINASE MB 1.12 ng/mL (<4.55)
[2019-04-01 14:29] LABS: TROPONIN I < 0.012 ng/mL
--- NOTE | 2019-04-01 14:44 | ER Document Report ---
ED General - General Chief Complaint: Chest Pain Stated Complaint: CHEST PAIN Time Seen by Provider: 04/01/19 13:29 Primary Care Provider: ROBERTO MELGAR FNP-C [Primary Care Provider] - Follow up as needed Mode of Arrival: Medic TRAVEL OUTSIDE OF THE [place] IN LAST 30 DAYS: No - HPI Notes: Patient presents with several days of cough. History of COPD he takes COPD medications and states that he is medically compliant. Over the last 2 to 3 days he has been having worsening shortness of breath where today he felt like he could not breathe. No recent fevers or chills he denies any chest pain throughout this whole episode. During history and physical patient states that he is feeling well at this time. - Related Data Allergies/Adverse Reactions: sumatriptan [From Imitrex] Allergy (Verified 01/13/19 17:33) tramadol [From Ultram] Allergy (Verified 01/13/19 17:33) Past Medical History - General Information source: Patient - Social History Smoking Status: Current Every Day Smoker Frequency of alcohol use: None Drug Abuse: None Family History: Reviewed & Not Pertinent Patient has suicidal ideation: No Patient has homicidal ideation: No - Past Medical History Cardiac Medical History: Reports: Hx Hypercholesterolemia, Hx Hypertension Pulmonary Medical History: Reports: Hx Asthma, Hx Bronchitis, Hx COPD, Hx Sleep Apnea Renal/ Medical History: Reports: Hx Kidney Stones. Denies: Hx Peritoneal Dialysis GI Medical History: Reports: Hx Gastroesophageal Reflux Disease. 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, right femur fracture right humerus fx Skin Medical History: Reports Hx Cellulitis - Take abscesses behind the right knee from prosthesis Traumatic Medical History: Reports: Hx Fractures - Right femur, right BKA right humerus fx Past Surgical History: Reports: Hx Abdominal Surgery - aneurysm, Hx Cholecystectomy, Hx Orthopedic Surgery - Right BKA, titanium sukumar to the right femur, right humerus ORIF, Hx Vascular Surgery - Aortic aneurysm repair - Immunizations Immunizations up to date: Yes Hx Diphtheria, Pertussis, Tetanus Vaccination: Yes Review of Systems - Review of Systems Constitutional: No symptoms reported EENT: No symptoms reported Cardiovascular: No symptoms reported Respiratory: See HPI Gastrointestinal: No symptoms reported Genitourinary: No symptoms reported Male Genitourinary: No symptoms reported Musculoskeletal: No symptoms reported Skin: No symptoms reported Hematologic/Lymphatic: No symptoms reported Neurological/Psychological: No symptoms reported Physical Exam - Vital signs Vitals: Temp Resp BP Pulse Ox 98.0 F 18 74/43 L 90 L 04/01/19 13:05 04/01/19 13:05 04/01/19 13:05 04/01/19 13:05 - General General appearance: Appears well, Alert - HEENT Head: Normocephalic, Atraumatic - Respiratory Respiratory status: No respiratory distress Chest status: Nontender Breath sounds: Wheezing - Cardiovascular Rhythm: Regular Heart sounds: Normal auscultation Murmur: No - Abdominal Inspection: Normal Distension: No distension Bowel sounds: Normal - Extremities General upper extremity: Normal inspection, Normal ROM General lower extremity: Normal inspection, Normal ROM - Neurological Neuro grossly intact: Yes Cognition: Normal Orientation: AAOx4 Course - Re-evaluation Re-evalutation: 04/01/19 14:43 Denies chest pain at this time has not had chest pain since he has been having cough is nonproductive as well as his shortness of breath did not experience any chest pain. Work-up in progress. Is also found to be hypotensive in the emergency department responded to fluids. 04/01/19 14:44 Clinically appears dry with a dry oral mucous membranes she was found to be 90% on room air on initial vitals in the emergency department with a clear x-ray. Proceed with CTA for concern of pulmonary embolism due to hypotension and low oxygen saturation. 04/01/19 16:46 Antibiotics provided in the emergency department for pneumonia. No evidence of PE on CTA. She continues not to have any chest pain in the emergency department. - Vital Signs Vital signs: Temp Pulse Resp BP Pulse Ox 98.0 F 18 100/68 96 04/01/19 13:05 04/01/19 16:31 04/01/19 16:31 04/01/19 16:31 - Laboratory Result Diagrams: 04/01/19 13:25 04/01/19 13:25 Laboratory results interpreted by me: 04/01/19 13:25 Potassium 3.4 L Chloride 97 L Carbon Dioxide 33 H Creatinine 1.81 H Est GFR ( Amer) 48 L Est GFR (MDRD) Non-Af 40 L Direct Bilirubin 0.5 H AST 68 H Alkaline Phosphatase 272 H Creatine Kinase 174 H Discharge - Discharge Clinical Impression: Pneumonia Qualifiers: Pneumonia type: due to unspecified organism Laterality: left Lung location: lower lobe of lung Qualified Code(s): J18.1 - Lobar pneumonia, unspecified organism Condition: Fair Disposition: ADMITTED INPATIENT Admitting Provider: Igor (Hospitalist) Unit Admitted: Telemetry Referrals: ROBERTO MELGAR FNP-C [Primary Care Provider] - Follow up as needed
[2019-04-01 14:47] LABS: INTERNATIONAL RATION (INR) 0.98
[2019-04-01 14:48] LABS: PARTIAL THROMBOPLASTIN TIME 28.4 SEC (23.5-35.8)
[2019-04-01 15:20] LABS: APPEARANCE,URINE CLEAR; BILIRUBIN,URINE NEGATIVE (NEGATIVE); COLOR,URINE YELLOW; GLUCOSE, URINE NEGATIVE (NEGATIVE); KETONES,URINE NEGATIVE (NEGATIVE); LEUKOCYTE ESTERASE,URINE NEGATIVE (NEGATIVE); NITRITE,URINE NEGATIVE (NEGATIVE); PROTEIN,URINE NEGATIVE (NEGATIVE); URINE SPECIFIC GRAVITY 1.008; UROBILINOGEN,URINE NEGATIVE mg/dL (<2.0)
--- NOTE | 2019-04-01 15:22 | RADIOLOGY REPORT (SQ) ---
EXAM DESCRIPTION: CTA CHEST COMPLETED DATE/TIME: 04/01/2019 3:11 pm REASON FOR STUDY: SOB COMPARISON: 03/13/2019 TECHNIQUE: CT scan of the chest performed using helical scanning technique with dynamic intravenous contrast injection. Images reviewed with lung, soft tissue and bone windows. Reconstructed coronal and sagittal MPR images reviewed. Additional 3 dimensional post-processing performed to develop Maximal Intensity Projection images (OR P). All images stored on PACS. All CT scanners at this facility use dose modulation, iterative reconstruction, and/or weight based d osing when appropriate to reduce radiation dose to as low as reasonably achievable (ALARA). [facility]: Dose Right [facility]: CareDose [facility]: Dose Right [facility]: Teradose 4D [facility]: [employer] CONTRAST TYPE AND DOSE: contrast/concentration: Isovue 350.00 mg/ml; Total Contrast Delivered: 74.0 ml; Total Saline Delivered: 50.1 ml Contrast bolus optimized for the pulmonary arteries. Not diagnostic for the aorta. RENAL FUNCTION: GFR > 60. RADIATION DOSE: CT Rad equipment meets quality standard of care and radiation dose reduction techniq ues were employed. CTDIvol: 24.8 - 25.4 mGy. DLP: 1073 mGy-cm. . LIMITATIONS: None. FINDINGS: LUNGS AND PLEURA: There is new consolidation of the lingula, concerning for infection. Mi ld centrilobular emphysema. No pleural effusions or pleural calcifications. AORTA AND GREAT VESSELS: No thoracic aneurysm. Partially imaged abdominal stent endograft Contrast b olus not optimized for the aorta. HEART: No pericardial effusion. Left coronary artery calcifications. PULMONARY ARTERIES: Evaluation for pulmonary embolism is limited by marginal contrast bolus; main pul monary artery HU = 165. Within this limitation, no evidence of pulmonary embolism through the proxim al segmental pulmonary arterial level. HILAR AND MEDIASTINAL STRUCTURES: No identified masses or abnormal nodes. HARDWARE: None in the chest. UPPER ABDOMEN: No significant findings. Limited exam. THYROID AND OTHER SOFT TISSUES: No masses. No adenopathy. BONES: No acute or significant finding. 3D MIPS: Confirm above findings. OTHER: No other significant finding. IMPRESSION: 1. Evaluation for pulmonary embolism is limited by marginal contrast bolus; main pulmona ry artery HU = 165. Within this limitation, no evidence of pulmonary embolism through the proximal s egmental pulmonary arterial level. 2. There is new consolidation of the lingula, concerning for infection. 3. Emphysema. 4. Coronary artery disease. COMMENT: Quality ID # 436: Final reports with documentation of one or more dose reduction techniques (e.g., Automated exposure control, adjustment of the mA and/or kV according to patient size, use of iterative reconstruction technique) TECHNICAL DOCUMENTATION: JOB ID: [id number] [employer]- All Rights Reserved Reading location - IP/workstation name: [email or web address]
[2019-04-01 15:37] LABS: URINE AMPHETAMINES SCREEN NEGATIVE; URINE BARBITURATES SCREEN NEGATIVE; URINE BENZODIAZEPINES SCREEN NEGATIVE; URINE COCAINE SCREEN NEGATIVE; URINE MARIJUANA (THC) SCREEN NEGATIVE; URINE METHADONE SCREEN NEGATIVE; URINE PHENCYCLIDINE SCREEN NEGATIVE
[2019-04-01] MEDS ORDERED: DOXYCYCLINE HYCLATE INJ 100 MG VIAL IV ONE (16:39)
--- NOTE | 2019-04-01 17:00 | EKG REPORT ---
SEVERITY:- ABNORMAL ECG - SINUS RHYTHM PROLONGED QT INTERVAL : Confirmed by: Richie Camacho MD 01-Apr-2019 16:59:30
[2019-04-01] MEDS ORDERED: LEVALBUTEROL HCL NEB 0.63 MG/3 ML AMPUL NEB PRN (17:24)
[2019-04-01] MEDS ORDERED: ACETAMINOPHEN 325 MG TABLET PO PRN (17:24)
[2019-04-01] MEDS ORDERED: GUAIFENESIN SYRP 200 MG/10 ML UDC PO PRN (17:24)
[2019-04-01] MEDS ORDERED: CEFTRIAXONE 1 GM/D5W RTU 1 GM/50 ML RTUPB IV ONE (17:30)
[2019-04-01] MEDS ORDERED: NICOTINE 14 MG/24 HR PATCH.TD24 TD PRN (18:00)
[2019-04-01] MEDS ORDERED: DEXTROSE 40% GEL 15 GM TUBE PO PRN ×2 (18:15)
[2019-04-01] MEDS ORDERED: GLUCAGON,HUMAN RECOMB 1 MG INJ IM PRN (18:15)
[2019-04-01] MEDS ORDERED: DEXTROSE 50%-WATER 25 GM/50 ML DISP.SYRIN IV PRN ×2 (18:15)
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
--- NOTE | 2019-04-01 18:25 | ADVANCED CARE ---
- Diagnosis (1) Pneumonia Diagnosis Current: Yes (2) Acute and chronic respiratory failure with hypoxia Diagnosis Current: Yes (3) COPD (chronic obstructive pulmonary disease) Diagnosis Current: Yes (4) Hypotension Diagnosis Current: Yes (5) Coronary artery disease Diagnosis Current: Yes (6) Hypertension Diagnosis Current: Yes (7) Acute kidney injury Diagnosis Current: Yes (8) Hypercholesteremia Diagnosis Current: Yes (9) Metabolic syndrome Diagnosis Current: Yes (10) KEARA (obstructive sleep apnea) Diagnosis Current: Yes (11) Tobacco dependence Diagnosis Current: Yes (12) Hypokalemia Diagnosis Current: Yes Attendance: The discussion was held at the bedside with the patient and his brother. Resuscitation Status: Full Code Discussion: We were reviewing the comorbidities of coronary artery disease and COPD. We discussed the increased risk of continued tobacco use. I reviewed the typical course of more frequent hospitalizations with shorter in between time. Each episode becomes more difficult to recover from the last. His brother suggested that this would be a good time to stop smoking. During the discussion I began to explain a healthcare proxy/living will and the fact that there is a blank one in the admissions packet. He then remembered that his daughter is the designated decision maker in a paper "that he has at home. Care Planning Goals: To ensure clarity of the decisions that he makes with regard to the severe underlying comorbidities Document(s) Completed: None. As above the patient may already have a completed document at home. Time Spent: 17 minutes
[2019-04-01] MEDS: NORMAL SALINE 1000 ML 1,000 ML IV PRN (18:40)
[2019-04-01] MEDS ORDERED: POTASSIUM CHLORIDE 10 MEQ CAPSULE.ER PO ONE (19:00)
[2019-04-01] MEDS: BUDESONIDE NEB 0.5 MG/2 ML AMPUL NEB SCH (20:58)
[2019-04-01] MEDS: IPRATROPIUM/ALBUTEROL 0.5-2.5 MG/3 ML AMPUL NEB SCH (20:58)
[2019-04-01] MEDS: METHYLPREDNISOLONE INJ 40 MG/1 ML SDV IV SCH (21:37)
[2019-04-01] MEDS: GUAIFENESIN 600 MG TABLET.SA PO SCH (21:37)
[2019-04-01] MEDS: ASPIRIN 81 MG TABLET, ENT COATED PO SCH (21:37)
[2019-04-01] MEDS ORDERED: FAMOTIDINE 20 MG TABLET PO SCH (22:00)
[2019-04-01] MEDS: AZITHROMYCIN 500 MG in DEXTROSE 5%-WATER 250 ML IV SCH (22:03)
[2019-04-01] MEDS: INSULIN LISPRO 100 UNIT/ML 3 ML VIAL SUBCUT SCH (22:41)
[2019-04-01] MEDS ORDERED: METHOCARBAMOL 500 MG TABLET PO PRN (22:57)
[2019-04-01] MEDS ORDERED: (PENDING PHARMACY ID) (Oxycodone Hcl/Acetaminophen [Percocet 10-325 Mg Tablet] 1 TAB) PO PRN (22:59)
[2019-04-01] MEDS ORDERED: (PENDING PHARMACY ID) (Oxcarbazepine [Trileptal] 300 MG) PO SCH (23:00)
[2019-04-02] MEDS ORDERED: TRAZODONE HCL 50 MG TABLET PO ONE (01:00)
[2019-04-02] MEDS ORDERED: OXCARBAZEPINE 150 MG TABLET PO ONE (01:00)
[2019-04-02] MEDS: IPRATROPIUM/ALBUTEROL 0.5-2.5 MG/3 ML AMPUL NEB SCH ×4 (01:56→20:18)
[2019-04-02 06:17] LABS: ABSOLUTE LYMPHOCYTES (AUTO) 0.4 10^3/uL (0.5-4.7); ABSOLUTE MONOCYTES (AUTO) 0.1 10^3/uL (0.1-1.4); ABSOLUTE NEUT (AUTO) 6.3 10^3/uL (1.7-8.2); BASOPHILS % (AUTO) 0.2 % (0-2); HEMATOCRIT 44.2 % (37.9-51.0); HEMOGLOBIN 15.4 g/dL (13.5-17.0); LYMPHOCYTES % (AUTO) 6.4 % (13-45); MEAN CORPUSCULAR HEMOGLOBIN 32.6 pg (27.0-33.4); MEAN CORPUSCULAR HGB CONC 34.7 g/dL (32.0-36.0); MEAN CORPUSCULAR VOLUME 94 fl (80-97); MONOCYTES % (AUTO) 1.2 % (3-13); PLATELET COUNT 141 10^3/uL (150-450); RED BLOOD COUNT 4.72 10^6/uL (4.35-5.55); RED CELL DISTRIBUTION WIDTH 13.7 % (11.5-14.0); SEGMENTED NEUTROPHILS % (AUTO) 92.2 % (42-78); TOTAL CELLS COUNTED % (AUTO) 100 %; WHITE BLOOD COUNT 6.8 10^3/uL (4.0-10.5)
--- NOTE | 2019-04-02 06:40 | EKG REPORT ---
SEVERITY:- BORDERLINE ECG - SINUS RHYTHM BORDERLINE T WAVE ABNORMALITIES : Confirmed by: Richie Camacho MD 02-Apr-2019 06:39:47
[2019-04-02 06:55] LABS: ANION GAP 7 (5-19); BLOOD UREA NITROGEN 12 mg/dL (7-20); CALCIUM 9.5 mg/dL (8.4-10.2); CARBON DIOXIDE 31 mmol/L (22-30); CHLORIDE 103 mmol/L (98-107); GLUCOSE 132 mg/dL (75-110); POTASSIUM 3.9 mmol/L (3.6-5.0)
[2019-04-02] MEDS: BUDESONIDE NEB 0.5 MG/2 ML AMPUL NEB SCH ×2 (07:52→20:18)
[2019-04-02] MEDS: NORMAL SALINE 1000 ML 1,000 ML IV PRN ×2 (07:59→17:33)
[2019-04-02] MEDS: INSULIN LISPRO 100 UNIT/ML 3 ML VIAL SUBCUT SCH ×4 (09:42→21:42)
[2019-04-02] MEDS: ATORVASTATIN CALCIUM 80 MG TABLET PO SCH (09:43)
[2019-04-02] MEDS: BENZTROPINE MESYLATE 1 MG TABLET PO SCH (09:43)
[2019-04-02] MEDS: METOPROLOL SUCCINATE 25 MG TAB.SR.24H PO SCH (09:43)
[2019-04-02] MEDS: LOSARTAN POTASSIUM 50 MG TABLET PO SCH (09:43)
[2019-04-02] MEDS: PANTOPRAZOLE SODIUM 20 MG TABLET.DR PO SCH ×2 (09:43→17:33)
[2019-04-02] MEDS: ENOXAPARIN SODIUM INJ 40 MG/0.4 ML DISP.SYRIN SUBCUT SCH (09:43)
[2019-04-02] MEDS: GABAPENTIN 400 MG CAPSULE PO SCH ×3 (09:43→21:41)
[2019-04-02] MEDS: POTASSIUM CHLORIDE 10 MEQ CAPSULE.ER PO SCH (09:44)
[2019-04-02] MEDS: CITALOPRAM HYDROBROMIDE 20 MG TABLET PO SCH (09:44)
[2019-04-02] MEDS: METHYLPREDNISOLONE INJ 40 MG/1 ML SDV IV SCH ×2 (09:44→21:41)
[2019-04-02] MEDS: GUAIFENESIN 600 MG TABLET.SA PO SCH ×2 (09:44→21:42)
[2019-04-02] MEDS: CEFTRIAXONE 1 GM/D5W RTU 1 GM/50 ML RTUPB IV SCH (09:45)
[2019-04-02] MEDS ORDERED: (PENDING PHARMACY ID) (Aripiprazole [Abilify 10 Mg Tablet] 10 MG) PO SCH (10:00)
[2019-04-02] MEDS ORDERED: (PENDING PHARMACY ID) (Benztropine Mesylate [Benztropine Mesylate 2 Mg Tablet] 2 MG) PO SCH (10:00)
[2019-04-02] MEDS ORDERED: (PENDING PHARMACY ID) (Citalopram Hydrobromide [Celexa 40 Mg Tablet] 40 MG) PO SCH (10:00)
[2019-04-02] MEDS ORDERED: AMLODIPINE BESYLATE 10 MG TABLET PO SCH (10:00)
[2019-04-02] MEDS: OXCARBAZEPINE 150 MG TABLET PO SCH ×2 (10:10→21:42)
[2019-04-02] MEDS: ARIPIPRAZOLE 5 MG TABLET PO SCH (10:10)
--- NOTE | 2019-04-02 12:07 | PDOC PROGRESS REPORT ---
Subjective Progress Note for:: 04/02/19 Subjective:: JEISON YAP JR is a 53 year old male with a past medical history of CAD, COPD, tobacco abuse, AAA status post repair last year, presented to ED complaining of progressively worsening shortness of breath and productive sputum. Was given antibiotic as outpatient which she has failed, and ED was noted to be hypoxic, and CTA showed possible left lingular pneumonia. 04/02/2019. No acute events overnight, patient comfortably sitting in bed, on supplemental oxygen, cough is improved, denies any fever, chills, nausea, diarrhea, constipation or any urinary symptoms. Reason For Visit: PNEUMONIA,ACUTE HYPOXIC RESPIRATORY FAILURE Physical Exam Vital Signs: Temp Pulse Resp BP Pulse Ox 98.8 F 92 16 121/88 H 96 04/02/19 00:00 04/02/19 07:52 04/02/19 07:52 04/02/19 00:00 04/02/19 07:52 Pulse Oximeter Continuous Start: 04/01/19 17:28 Freq: RTQ4 Status: Active Protocol: Document 04/02/19 07:52 [facility] (Rec: 04/02/19 08:39 [facility] [id number]) Pulse Oximetry Assessment Oxygen Saturation (92-100) 96 Oxygen Flow Rate (L/min) 16 Oxygen Delivery Method Nasal Cannula Equipment Usage Equipment in Use Continuous SpO2 Machine # 5 Intake & Output 04/01/19 04/02/19 04/03/19 06:59 06:59 06:59 Intake Total 4050 300 Output Total 650 Balance 3400 300 Weight 98 kg General appearance: PRESENT: morbidly obese Head exam: PRESENT: atraumatic, normocephalic Respiratory exam: PRESENT: clear to auscultation mendle. ABSENT: rales, rhonchi, wheezes Cardiovascular exam: PRESENT: RRR. ABSENT: diastolic murmur, rubs, systolic murmur GI/Abdominal exam: PRESENT: normal bowel sounds, soft. ABSENT: distended, g uarding, mass, organolmegaly, rebound, tenderness Neurological exam: PRESENT: alert, awake, oriented to person, oriented to place, oriented to time, oriented to situation, CN II-XII grossly intact. ABSENT: motor sensory deficit Results Laboratory Results: 04/02/19 05:50 04/02/19 05:50 04/01/19 04/01/1904/01/19 13:25 13:25 13:25 WBC 8.8 RBC 4.83 Hgb 15.9 Hct 44.9 MCV 93 MCH 32.9 MCHC 35.4 RDW 13.6 Plt Count 184 Seg Neutrophils % 73.0 Sodium 139.7 Potassium 3.4 L Chloride 97 L Carbon Dioxide 33 H Anion Gap 10 BUN 16 Creatinine 1.81 H Est GFR ( Amer) 48 L Glucose 99 Lactic Acid Calcium 9.7 Magnesium 1.9 Total Bilirubin 1.3 AST 68 H Alkaline Phosphatase 272 H Total Protein 7.8 Albumin 4.5 Urine Color Urine Appearance Urine pH Ur Specific [place] Urine Protein Urine Glucose (UA) Urine Ketones Urine Blood Urine Nitrite Ur Leukocyte Esterase Urine WBC (Auto) Urine RBC (Auto) 04/01/19 04/01/19 04/02/19 15:05 16:30 05:50 WBC RBC Hgb Hct MCV MCH MCHC RDW Plt Count Seg Neutrophils % Sodium 141.0 Potassium 3.9 Chloride 103 Carbon Dioxide 31 H Anion Gap 7 BUN 12 Creatinine 0.74 Est GFR ( Amer) > 60 Glucose 132 H Lactic Acid 0.8 Calcium 9.5 Magnesium 1.9 Total Bilirubin AST Alkaline Phosphatase Total Protein Albumin Urine Color YELLOW Urine Appearance CLEAR Urine pH 6.0 Ur Specific [place] 1.008 Urine Protein NEGATIVE Urine Glucose (UA) NEGATIVE Urine Ketones NEGATIVE Urine Blood NEGATIVE Urine Nitrite NEGATIVE Ur Leukocyte Esterase NEGATIVE Urine WBC (Auto) 1 Urine RBC (Auto) 0 04/02/19 05:50 WBC 6.8 RBC 4.72 Hgb 15.4 Hct 44.2 MCV 94 MCH 32.6 MCHC 34.7 RDW 13.7 Plt Count 141 L Seg Neutrophils % 92.2 H Sodium Potassium Chloride Carbon Dioxide Anion Gap BUN Creatinine Est GFR ( Amer) Glucose Lactic Acid Calcium Magnesium Total Bilirubin AST Alkaline Phosphatase Total Protein Albumin Urine Color Urine Appearance Urine pH Ur Specific [place] Urine Protein Urine Glucose (UA) Urine Ketones Urine Blood Urine Nitrite Ur Leukocyte Esterase Urine WBC (Auto) Urine RBC (Auto) 04/01/19 04/01/19 04/01/19 13:25 13:25 17:10 Creatine Kinase 174 H CK-MB (CK-2) 1.12 Troponin I < 0.012 < 0.012 Impressions: Chest X-Ray 04/01/19 13:23 IMPRESSION: NO SIGNIFICANT RADIOGRAPHIC FINDING IN THE CHEST. Chest/Abdomen CTA 04/01/19 14:34 IMPRESSION: 1. Evaluation for pulmonary embolism is limited by marginal contrast bolus; main pulmonary artery HU = 165. Within this limitation, no evidence of pulmonary embolism through the proximal segmental pulmonary arterial level. 2. There is new consolidation of the lingula, concerning for infection. 3. Emphysema. 4. Coronary artery disease. Assessment and Plan - Diagnosis (1) Acute and chronic respiratory failure with hypoxia Is this a current diagnosis for this admission?: Yes Plan: Improving. SPO2 WNL on 2 L. Due to underlying lingular pneumonia complicated by underlying COPD and ongoing tobacco abuse. SPO2 84% on admission. CTA limited however negative for PE. Failed outpatient antibiotic regimen. Day 2 IV antibiotics. Day 2 IV's azithromycin. Day 2 IV ceftriaxone. Blood cultures no growth so far. Continue empiric IV antibiotics, switch to p.o. tomorrow. Follow-up blood culture. Evaluate for need for outpatient O2. (2) Pneumonia Qualifiers: Pneumonia type: due to unspecified organism Laterality: left Lung location: lower lobe of lung Qualified Code(s): J18.1 - Lobar pneumonia, unspecified organism Is this a current diagnosis for this admission?: Yes Plan: Community-acquired. Likely due to gram-positive including strep pneumo. Failed outpatient antibiotic therapy. Management as per problem #1. (3) Hypotension Qualifiers: Hypotension type: hypotension due to drug Qualified Code(s): I95.2 - Hypotension due to drugs Is this a current diagnosis for this admission?: Yes Plan: Resolved. Due to hypotension caused sublingual nitroglycerin or hypertension over treatment. Likely due to sepsis. Afebrile, WBC WNL. This was likely induced due to sublingual nitroglycerin for his chest pain or overtreatment of his hypertension. Continue monitoring vitals, adjust meds as needed. (4) Acute kidney injury Is this a current diagnosis for this admission?: Yes Plan: Prerenal. Resolved. Continue cautious diuresis guided by volume status. Monitor electrolytes and replace as needed. Avoid nephrotoxic meds. Outpatient PCP and nephrology follow-up. (5) Coronary artery disease Qualifiers: Coronary Disease-Associated Artery/Lesion type: [place] artery [place] vs. transplanted heart: [place] heart Associated angina: without angina Qualified Code(s): I25.10 - Atherosclerotic heart disease of [place] coronary artery without angina pectoris Is this a current diagnosis for this admission?: Yes Plan: History of CAD status post PCI. History of AAA status post surgery x1 year and no prior. Patient had mentioned chest pain to ED physician however denied it to the hospital. EKG no acute changes, troponins negative. Denies any chest pain today. Home meds are: Lasix 40 mg p.o. daily Albuterol sulfate as needed Metoprolol 25 p.o. daily Losartan 50 mg p.o. daily Hydrochlorothiazide 25 mg p.o. daily Amlodipine 10 mg p.o. daily Atorvastatin 80 mg p.o. daily For some reason patient is not on antiplatelets and cannot provide any reason why Continue metoprolol, losartan, Lasix, atorvastatin. Hold hydrochlorothiazide and amlodipine as patient was noted to be hypotensive on admission and pressures are low normal. Outpatient PCP and cardiology follow-up. (6) Hypercholesteremia Is this a current diagnosis for this admission?: Yes Plan: On high intensity statin. Takes atorvastatin 80 mg p.o. daily. Resume home meds. Lifestyle change diet modification recommended. (7) Hypertension Qualifiers: Hypertension type: essential hypertension Qualified Code(s): I10 - Essential (primary) hypertension Is this a current diagnosis for this admission?: Yes Plan: Patient noted to be hypotensive on admission not sure if this was due to sublingual nitroglycerin or actually his BP is overtreated. Home meds are: Lasix 40 mg p.o. daily Albuterol sulfate as needed Metoprolol 25 p.o. daily Llosartan 50 mg p.o. daily Hydrochlorothiazide 25 mg p.o. daily Amlodipine 10 mg p.o. daily Continue metoprolol, losartan, Lasix, atorvastatin. Hold hydrochlorothiazide and amlodipine as patient was noted to be hypotensive on admission and pressures are low normal. Monitor vitals. Adjust dosage as needed. Outpatient PCP follow-up. (8) KEARA (obstructive sleep apnea) Is this a current diagnosis for this admission?: Yes Plan: Has CPAP at home. Continue CPAP nocturnal. Outpatient PCP follow-up Weight loss and dietary modification recommended. (9) Tobacco dependence Is this a current diagnosis for this admission?: Yes Plan: Current day smoker. Advised on abstinence. NicoDerm patch provided. (10) Obesity (BMI 30.0-34.9) Is this a current diagnosis for this admission?: Yes Plan: TSH WNL in 2017. Likely his antipsychotics have a role to play. Diet and lifestyle modification recommended. Patient has KEARA and wearing CPAP at night. (11) Diabetes Qualifiers: Diabetes mellitus type: type 2 Is this a current diagnosis for this admission?: Yes Plan: Takes metformin thousand grams p.o. twice daily. Will obtain A1c. Continue basal, prandial and sliding scale insulin. Hypoglycemia protocol, diabetic diet. Adjust meds as needed. (12) COPD (chronic obstructive pulmonary disease) Qualifiers: COPD type: emphysema Emphysema type: unspecified Qualified Code(s): J43.9 - Emphysema, unspecified Is this a current diagnosis for this admission?: Yes Plan: Not on home O2. Unfortunately current tobacco user. Takes albuterol as needed at home. DuoNeb's, ICS, LMA, LABA, supplemental oxygen, PRN BiPAP.
[2019-04-02] MEDS: AZITHROMYCIN 500 MG in DEXTROSE 5%-WATER 250 ML IV SCH (21:41)
[2019-04-02] MEDS: TRAZODONE HCL 50 MG TABLET PO SCH (21:42)
[2019-04-02] MEDS: ASPIRIN 81 MG TABLET, ENT COATED PO SCH (21:42)
[2019-04-02] MEDS ORDERED: (PENDING PHARMACY ID) (Trazodone Hcl [Desyrel] 300 MG) PO SCH (22:00)
[2019-04-03] MEDS: IPRATROPIUM/ALBUTEROL 0.5-2.5 MG/3 ML AMPUL NEB SCH ×4 (02:19→20:06)
[2019-04-03] MEDS: NORMAL SALINE 1000 ML 1,000 ML IV PRN (05:10)
[2019-04-03] MEDS: GABAPENTIN 400 MG CAPSULE PO SCH ×3 (05:13→21:20)
[2019-04-03] MEDS: PANTOPRAZOLE SODIUM 20 MG TABLET.DR PO SCH ×2 (05:13→17:23)
[2019-04-03 05:15] LABS: HEMATOCRIT 40.8 % (37.9-51.0); HEMOGLOBIN 14.1 g/dL (13.5-17.0); MEAN CORPUSCULAR HEMOGLOBIN 32.4 pg (27.0-33.4); MEAN CORPUSCULAR HGB CONC 34.7 g/dL (32.0-36.0); MEAN CORPUSCULAR VOLUME 93 fl (80-97); PLATELET COUNT 146 10^3/uL (150-450); RED BLOOD COUNT 4.36 10^6/uL (4.35-5.55); RED CELL DISTRIBUTION WIDTH 13.9 % (11.5-14.0)
[2019-04-03] MEDS: OXYCODONE-ACETAMINOPHEN 5-325 MG TABLET PO PRN ×2 (05:17→21:36)
[2019-04-03] MEDS: OXYCODONE HCL IR 5 MG TABLET PO PRN ×2 (05:17→21:35)
[2019-04-03 05:24] LABS: WHITE BLOOD COUNT 15.1 10^3/uL (4.0-10.5)
[2019-04-03 05:31] LABS: ABSOLUTE LYMPHOCYTES# (MANUAL) 1.4 10^3/uL (0.5-4.7); ABSOLUTE MONOCYTES # (MANUAL) 0.2 10^3/uL (0.1-1.4); ALBUMIN 3.7 g/dL (3.5-5.0); ALKALINE PHOSPHATASE 207 U/L (38-126); ANION GAP 7 (5-19); ASPARTATE AMINO TRANSFERASE 34 U/L (17-59); BAND NEUTROPHILS % (MANUAL) 4 % (3-5); BASOPHILS % (MANUAL) 0 % (0-2); BILIRUBIN,DIRECT 0.2 mg/dL (0.0-0.4); BILIRUBIN,TOTAL 0.4 mg/dL (0.2-1.3); BLOOD UREA NITROGEN 16 mg/dL (7-20); CARBON DIOXIDE 27 mmol/L (22-30); CHLORIDE 111 mmol/L (98-107); EOSINOPHILS % (MANUAL) 0 % (0-6); GLUCOSE 141 mg/dL (75-110); LYMPHOCYTES % (MANUAL) 9 % (13-45); MONOCYTES % (MANUAL) 1 % (3-13); RBC MORPHOLOGY COMMENT NORMO-CYTIC/CHROMIC; SEGMENTED NEUTROPHILS % (MAN) 86 % (42-78); TOTAL CELLS COUNTED 100; TOTAL PROTEIN 6.8 g/dL (6.3-8.2)
[2019-04-03 05:32] LABS: PLATELET COMMENT ADEQUATE
[2019-04-03] MEDS: BUDESONIDE NEB 0.5 MG/2 ML AMPUL NEB SCH ×2 (07:56→20:06)
[2019-04-03] MEDS: INSULIN LISPRO 100 UNIT/ML 3 ML VIAL SUBCUT SCH ×4 (09:00→21:20)
[2019-04-03] MEDS ORDERED: FUROSEMIDE 40 MG TABLET PO SCH (10:00)
[2019-04-03] MEDS ORDERED: HYDROCHLOROTHIAZIDE 25 MG TABLET PO SCH (10:00)
[2019-04-03] MEDS: ARIPIPRAZOLE 5 MG TABLET PO SCH (10:25)
[2019-04-03] MEDS: ENOXAPARIN SODIUM INJ 40 MG/0.4 ML DISP.SYRIN SUBCUT SCH (10:26)
[2019-04-03] MEDS: POTASSIUM CHLORIDE 10 MEQ CAPSULE.ER PO SCH (10:26)
[2019-04-03] MEDS: GUAIFENESIN 600 MG TABLET.SA PO SCH ×2 (10:26→21:20)
[2019-04-03] MEDS: BENZTROPINE MESYLATE 1 MG TABLET PO SCH (10:26)
[2019-04-03] MEDS: CITALOPRAM HYDROBROMIDE 20 MG TABLET PO SCH (10:26)
[2019-04-03] MEDS: ATORVASTATIN CALCIUM 80 MG TABLET PO SCH (10:26)
[2019-04-03] MEDS: LOSARTAN POTASSIUM 50 MG TABLET PO SCH (10:26)
[2019-04-03] MEDS: OXCARBAZEPINE 150 MG TABLET PO SCH ×2 (10:27→21:20)
[2019-04-03] MEDS: METHYLPREDNISOLONE INJ 40 MG/1 ML SDV IV SCH ×2 (10:27→21:21)
[2019-04-03] MEDS: METOPROLOL SUCCINATE 25 MG TAB.SR.24H PO SCH (10:27)
[2019-04-03] MEDS: CEFTRIAXONE 1 GM/D5W RTU 1 GM/50 ML RTUPB IV SCH (10:27)
--- NOTE | 2019-04-03 12:01 | PDOC PROGRESS REPORT ---
Subjective Progress Note for:: 04/03/19 Subjective:: JEISON YAP JR is a 53 year old male with a past medical history of CAD, COPD, tobacco abuse, AAA status post repair last year, presented to ED complaining of progressively worsening shortness of breath and productive sputum. Was given antibiotic as outpatient which she has failed, and ED was noted to be hypoxic, and CTA showed possible left lingular pneumonia. 04/02/2019. No acute events overnight, patient comfortably sitting in bed, on supplemental oxygen, cough is improved, denies any fever, chills, nausea, diarrhea, constipation or any urinary symptoms. 04/2019. No acute events overnight. Patient currently sitting in bed on RA in no apparent distress, denies any fever, chills, nausea, vomiting, diarrhea, constipation or any urinary symptoms. Patient has worsening bursitis likely due to IV steroid that he is receiving. Reason For Visit: PNEUMONIA,ACUTE HYPOXIC RESPIRATORY FAILURE Physical Exam Vital Signs: Temp Pulse Resp BP Pulse Ox 97.3 F 81 21 H 133/74 H 93 04/03/19 08:00 04/03/19 08:00 04/03/19 08:00 04/03/19 08:00 04/03/19 08:00 Pulse Oximeter Continuous Start: 04/01/19 17:28 Freq: RTQ4 Status: Active Protocol: Document 04/03/19 07:56 [facility] (Rec: 04/03/19 08:10 [facility] [id number]) Pulse Oximetry Assessment Oxygen Saturation (92-100) 93 Oxygen Delivery Method Room Air Equipment Usage Equipment in Use Continuous SpO2 Machine # 5 Intake & Output 04/02/19 04/03/19 04/04/19 06:59 06:59 05:59 Intake Total 4050 3878 Output Total 650 Balance 3400 3878 Weight 98 kg 99 kg General appearance: PRESENT: obese Respiratory exam: PRESENT: clear to auscultation mend[place]. ABSENT: rales, rhonchi, wheezes Cardiovascular exam: PRESENT: RRR. ABSENT: diastolic murmur, rubs, systolic murmur GI/Abdominal exam: PRESENT: normal bowel sounds, soft. ABSENT: distended, guarding, mass, organolmegaly, rebound, tenderness Neurological exam: PRESENT: alert, awake, oriented to person, oriented to place, oriented to time, oriented to situation, CN II-XII grossly intact. ABSENT: motor sensory deficit Results Laboratory Results: 04/03/19 04:47 04/03/19 04:47 04/03/19 04/03/19 04:47 04:47 WBC 15.1 H D RBC 4.36 Hgb 14.1 Hct 40.8 MCV 93 MCH 32.4 MCHC 34.7 RDW 13.9 Plt Count 146 L Seg Neutrophils % Not Reportable Sodium 144.9 Potassium 4.0 Chloride 111 H Carbon Dioxide 27 Anion Gap 7 BUN 16 Creatinine 0.63 Est GFR ( Amer) > 60 Glucose 141 H Calcium 9.0 Magnesium 1.9 Total Bilirubin 0.4 AST 34 Alkaline Phosphatase 207 H Total Protein 6.8 Albumin 3.7 04/01/19 04/01/19 04/01/19 13:25 13:25 17:10 Creatine Kinase 174 H CK-MB (CK-2) 1.12 Troponin I < 0.012 < 0.012 Impressions: Chest X-Ray 04/01/19 13:23 IMPRESSION: NO SIGNIFICANT RADIOGRAPHIC FINDING IN THE CHEST. Chest/Abdomen CTA 04/01/19 14:34 IMPRESSION: 1. Evaluation for pulmonary embolism is limited by marginal contrast bolus; main pulmonary artery HU = 165. Within this limitation, no evidence of pulmonary embolism through the proximal segmental pulmonary arterial level. 2. There is new consolidation of the lingula, concerning for infection. 3. Emphysema. 4. Coronary artery disease. Assessment and Plan - Diagnosis (1) Acute and chronic respiratory failure with hypoxia Is this a current diagnosis for this admission?: Yes Plan: Resolved. SPO2 WNL on RA. Due to underlying lingular pneumonia complicated by underlying COPD and ongoing tobacco abuse. SPO2 84% on admission. CTA limited however negative for PE. Failed outpatient antibiotic regimen. Day 3 IV antibiotics. Day 3 IV azithromycin. Day 3 IV ceftriaxone. Blood cultures no growth so far. Continue empiric IV antibiotics, switch to p.o. tomorrow. Follow-up blood culture. Evaluate for need for outpatient O2. (2) Pneumonia Qualifiers: Pneumonia type: due to unspecified organism Laterality: left Lung location: lower lobe of lung Qualified Code(s): J18.1 - Lobar pneumonia, unspecified organism Is this a current diagnosis for this admission?: Yes Plan: Community-acquired. Likely due to gram-positive including strep pneumo. Failed outpatient antibiotic therapy. Management as per problem #1. (3) Hypotension Qualifiers: Hypotension type: hypotension due to drug Qualified Code(s): I95.2 - Hypotension due to drugs Is this a current diagnosis for this admission?: Yes Plan: Resolved. Due to hypotension caused sublingual nitroglycerin or hypertension over treatment. Likely due to sepsis. Afebrile, WBC WNL. This was likely induced due to sublingual nitroglycerin for his chest pain or overtreatment of his hypertension. Continue monitoring vitals, adjust meds as needed. (4) Acute kidney injury Is this a current diagnosis for this admission?: Yes Plan: Prerenal. Resolved. Continue cautious diuresis guided by volume status. Monitor electrolytes and replace as needed. Avoid nephrotoxic meds. Outpatient PCP and nephrology follow-up. (5) Coronary artery disease Qualifiers: Coronary Disease-Associated Artery/Lesion type: [place] artery [place] vs. transplanted heart: [place] heart Associated angina: without angina Qualified Code(s): I25.10 - Atherosclerotic heart disease of [place] coronary artery without angina pectoris Is this a current diagnosis for this admission?: Yes Plan: History of CAD status post PCI. History of AAA status post surgery x1 year and no prior. Patient had mentioned chest pain to ED physician however denied it to the hospital. EKG no acute changes, troponins negative. Denies any chest pain today. Home meds are: Lasix 40 mg p.o. daily Albuterol sulfate as needed Metoprolol 25 p.o. daily Losartan 50 mg p.o. daily Hydrochlorothiazide 25 mg p.o. daily Amlodipine 10 mg p.o. daily Atorvastatin 80 mg p.o. daily For some reason patient is not on antiplatelets and cannot provide any reason why Continue metoprolol, losartan, Lasix, atorvastatin. Hold hydrochlorothiazide and amlodipine as patient was noted to be hypotensive on admission and pressures are low normal. Outpatient PCP and cardiology follow-up. (6) Hypercholesteremia Is this a current diagnosis for this admission?: Yes Plan: On high intensity statin. Takes atorvastatin 80 mg p.o. daily. Resume home meds. Lifestyle change diet modification recommended. (7) Hypertension Qualifiers: Hypertension type: essential hypertension Qualified Code(s): I10 - Essential (primary) hypertension Is this a current diagnosis for this admission?: Yes Plan: Patient noted to be hypotensive on admission not sure if this was due to s ublingual nitroglycerin or actually his BP is overtreated. Home meds are: Lasix 40 mg p.o. daily Albuterol sulfate as needed Metoprolol 25 p.o. daily Llosartan 50 mg p.o. daily Hydrochlorothiazide 25 mg p.o. daily Amlodipine 10 mg p.o. daily Continue metoprolol, losartan, Lasix, atorvastatin. Hold hydrochlorothiazide and amlodipine as patient was noted to be hypotensive on admission and pressures are low normal. Monitor vitals. Adjust dosage as needed. Outpatient PCP follow-up. (8) KEARA (obstructive sleep apnea) Is this a current diagnosis for this admission?: Yes Plan: Has CPAP at home. Continue CPAP nocturnal. Outpatient PCP follow-up Weight loss and dietary modification recommended. (9) Tobacco dependence Is this a current diagnosis for this admission?: Yes Plan: Current day smoker. Advised on abstinence. NicoDerm patch provided. (10) Obesity (BMI 30.0-34.9) Is this a current diagnosis for this admission?: Yes Plan: TSH WNL in 2017. Likely his antipsychotics have a role to play. Diet and lifestyle modification recommended. Patient has KEARA and wearing CPAP at night. (11) Diabetes Qualifiers: Diabetes mellitus type: type 2 Is this a current diagnosis for this admission?: Yes Plan: Takes metformin thousand grams p.o. twice daily. Will obtain A1c. Continue basal, prandial and sliding scale insulin. Hypoglycemia protocol, diabetic diet. Adjust meds as needed. (12) COPD (chronic obstructive pulmonary disease) Qualifiers: COPD type: emphysema Emphysema type: unspecified Qualified Code(s): J43.9 - Emphysema, unspecified Is this a current diagnosis for this admission?: Yes Plan: Not on home O2. Unfortunately current tobacco user. Takes albuterol as needed at home. DuoNeb's, ICS, LMA, LABA, supplemental oxygen, PRN BiPAP.
[2019-04-03] MEDS: FUROSEMIDE 20 MG TABLET PO SCH (17:23)
[2019-04-03] MEDS: TRAZODONE HCL 50 MG TABLET PO SCH (21:19)
[2019-04-03] MEDS: AZITHROMYCIN 500 MG in DEXTROSE 5%-WATER 250 ML IV SCH (21:19)
[2019-04-03] MEDS: ASPIRIN 81 MG TABLET, ENT COATED PO SCH (21:20)
[2019-04-04] MEDS: IPRATROPIUM/ALBUTEROL 0.5-2.5 MG/3 ML AMPUL NEB SCH ×2 (02:19→07:36)
[2019-04-04] MEDS: GABAPENTIN 400 MG CAPSULE PO SCH (05:06)
[2019-04-04] MEDS: PANTOPRAZOLE SODIUM 20 MG TABLET.DR PO SCH (05:06)
[2019-04-04 05:40] LABS: ABSOLUTE LYMPHOCYTES (AUTO) 0.6 10^3/uL (0.5-4.7); ABSOLUTE MONOCYTES (AUTO) 0.4 10^3/uL (0.1-1.4); ABSOLUTE NEUT (AUTO) 8.7 10^3/uL (1.7-8.2); BASOPHILS % (AUTO) 0.2 % (0-2); HEMATOCRIT 39.4 % (37.9-51.0); HEMOGLOBIN 13.4 g/dL (13.5-17.0); LYMPHOCYTES % (AUTO) 6.2 % (13-45); MEAN CORPUSCULAR HEMOGLOBIN 32.3 pg (27.0-33.4); MEAN CORPUSCULAR VOLUME 95 fl (80-97); MONOCYTES % (AUTO) 3.9 % (3-13); PLATELET COUNT 142 10^3/uL (150-450); RED BLOOD COUNT 4.16 10^6/uL (4.35-5.55); RED CELL DISTRIBUTION WIDTH 14.2 % (11.5-14.0); SEGMENTED NEUTROPHILS % (AUTO) 89.7 % (42-78); TOTAL CELLS COUNTED % (AUTO) 100 %; WHITE BLOOD COUNT 9.7 10^3/uL (4.0-10.5)
[2019-04-04] MEDS: BUDESONIDE NEB 0.5 MG/2 ML AMPUL NEB SCH (07:36)
[2019-04-04] MEDS ORDERED: FUROSEMIDE 40 MG TABLET PO SCH (08:00)
[2019-04-04] MEDS: INSULIN LISPRO 100 UNIT/ML 3 ML VIAL SUBCUT SCH ×2 (08:43→11:42)
[2019-04-04 09:45] VITALS: BP 117/63
[2019-04-04] MEDS: FUROSEMIDE 20 MG TABLET PO SCH (10:27)
[2019-04-04] MEDS: ARIPIPRAZOLE 5 MG TABLET PO SCH (10:28)
[2019-04-04] MEDS: OXCARBAZEPINE 150 MG TABLET PO SCH (10:28)
[2019-04-04] MEDS: POTASSIUM CHLORIDE 10 MEQ CAPSULE.ER PO SCH (10:28)
[2019-04-04] MEDS: BENZTROPINE MESYLATE 1 MG TABLET PO SCH (10:28)
[2019-04-04] MEDS: GUAIFENESIN 600 MG TABLET.SA PO SCH (10:28)
[2019-04-04] MEDS: CITALOPRAM HYDROBROMIDE 20 MG TABLET PO SCH (10:28)
[2019-04-04] MEDS: ATORVASTATIN CALCIUM 80 MG TABLET PO SCH (10:28)
[2019-04-04] MEDS: METOPROLOL SUCCINATE 25 MG TAB.SR.24H PO SCH (10:28)
[2019-04-04] MEDS: LOSARTAN POTASSIUM 50 MG TABLET PO SCH (10:29)
[2019-04-04] MEDS: ENOXAPARIN SODIUM INJ 40 MG/0.4 ML DISP.SYRIN SUBCUT SCH (10:32)
[2019-04-04] MEDS: METHYLPREDNISOLONE INJ 40 MG/1 ML SDV IV SCH (10:33)
[2019-04-04] MEDS: CEFTRIAXONE 1 GM/D5W RTU 1 GM/50 ML RTUPB IV SCH (10:33)
[2019-04-04] MEDS ORDERED: LEVOFLOXACIN 500 MG TABLET PO ONE (11:00)
--- NOTE | 2019-04-04 17:52 | PDOC DISCHARGE SUMMARY ---
Impression - Admit/DC Date/PCP Admission Date/Primary Care Provider: 04/01/19 16:57 ANGEL DOWNING Discharge Date: 04/04/19 - Discharge Diagnosis (1) Acute and chronic respiratory failure with hypoxia Is this a current diagnosis for this admission?: Yes (2) Pneumonia Is this a current diagnosis for this admission?: Yes (3) Hypotension Is this a current diagnosis for this admission?: Yes (4) Acute kidney injury Is this a current diagnosis for this admission?: Yes (5) Coronary artery disease Is this a current diagnosis for this admission?: Yes (6) Hypercholesteremia Is this a current diagnosis for this admission?: Yes (7) Hypertension Is this a current diagnosis for this admission?: Yes (8) KEARA (obstructive sleep apnea) Is this a current diagnosis for this admission?: Yes (9) Tobacco dependence Is this a current diagnosis for this admission?: Yes (10) Obesity (BMI 30.0-34.9) Is this a current diagnosis for this admission?: Yes (11) Diabetes Is this a current diagnosis for this admission?: Yes (12) COPD (chronic obstructive pulmonary disease) Is this a current diagnosis for this admission?: Yes - Additional Information Resuscitation Status: Full Code Discharge Diet: Diabetic Discharge Activity: Activity As Tolerated Referrals: ROBERTO MELGAR FNP-C [Primary Care Provider] - 04/12/19 10:00 am Prescriptions: Levofloxacin [Levaquin 500 mg Tablet] 500 mg PO DAILY 3 Days #3 tablet Prednisone 50 mg PO DAILY 3 Days #3 tablet Home Medications: Albuterol Sulfate [Albuterol Sulfate Hfa] 1 puff IH Q6HP PRN 04/01/19 Aripiprazole [Abilify 10 mg Tablet] 10 mg PO DAILY 04/01/19 Atorvastatin Calcium [Lipitor 80 mg Tablet] 80 mg PO DAILY 04/01/19 Benztropine Mesylate [Benztropine Mesylate 2 mg Tablet] 2 mg PO DAILY 04/01/19 Citalopram Hydrobromide [Celexa 40 mg Tablet] 40 mg PO DAILY 04/01/19 Furosemide [Lasix 40 mg Tablet] 40 mg PO DAILY 04/01/19 Gabapentin [Neurontin] 800 mg PO Q8 04/01/19 Losartan Potassium [Cozaar 50 mg Tablet] 50 mg PO DAILY 04/01/19 Metformin HCl [Glucophage 500 mg Tablet] 1,000 mg PO WSUPPER 04/01/19 Methocarbamol [Robaxin 500 mg Tablet] 500 mg PO Q12HP PRN 04/01/19 Metoprolol Succinate [Toprol Xl 25 mg Tab.sr] 25 mg PO DAILY 04/01/19 Omeprazole 20 mg PO BIDACBS 04/01/19 Oxcarbazepine [Trileptal] 300 mg PO Q12 04/01/19 Oxycodone HCl/Acetaminophen [Percocet 10-325 mg Tablet] 1 tab PO Q6HP PRN 04/01/19 Trazodone HCl [Desyrel] 300 mg PO QHS 04/01/19 Levofloxacin [Levaquin 500 mg Tablet] 500 mg PO DAILY 3 Days #3 tablet 04/04/19 Prednisone 50 mg PO DAILY 3 Days #3 tablet 04/04/19 History of Present Illiness History of Present Illness: JEISON YAP JR is a 53 year old male with a past medical history of CAD, COPD, tobacco abuse, AAA status post repair last year, presented to ED complaining of progressively worsening shortness of breath and productive sputum. Was given antibiotic as outpatient which she has failed, and ED was noted to be hypoxic, and CTA showed possible left lingular pneumonia. Hospital Course Hospital Course: (1) Acute and chronic respiratory failure with hypoxia Resolved. SPO2 WNL on RA. Afebrile. WBC WNL. Cultures remained negative. Due to underlying lingular pneumonia complicated by underlying COPD and ongoing tobacco abuse. SPO2 84% on admission. CTA limited however negative for PE. Failed outpatient antibiotic regimen. Received 3 days of IV antibiotics. Received 3 days of IV azithromycin. Received 3 days of IV ceftriaxone. Was discharged on levofloxacin for another 4 days. (2) Pneumonia Community-acquired. Likely due to gram-positive including strep pneumo. Failed outpatient antibiotic therapy. Management as per problem #1. (3) Hypotension Resolved. Due to hypotension caused sublingual nitroglycerin or hypertension over treatment. Unlikely due to sepsis. Afebrile, WBC WNL. This was likely induced due to sublingual nitroglycerin for his chest pain or overtreatment of his hypertension. (4) Acute kidney injury Prerenal. Resolved. Initially started on cautious diuresis guided by volume status. Monitored electrolytes and replace as needed. Avoided nephrotoxic meds. Outpatient PCP and nephrology follow-up. (5) Coronary artery disease History of CAD status post PCI. History of AAA status post surgery x1 year and no prior. Patient had mentioned chest pain to ED physician however denied it to the hospital. EKG no acute changes, troponins negative. Denies any chest pain. Home meds are: Lasix 40 mg p.o. daily Albuterol sulfate as needed Metoprolol 25 p.o. daily Losartan 50 mg p.o. daily Hydrochlorothiazide 25 mg p.o. daily Amlodipine 10 mg p.o. daily Atorvastatin 80 mg p.o. daily Continued metoprolol, losartan, Lasix, atorvastatin. Held hydrochlorothiazide and amlodipine as patient was noted to be hypotensive on admission and pressures are low normal. Outpatient PCP and cardiology follow-up. (6) Hypercholesteremia On high intensity statin. Takes atorvastatin 80 mg p.o. daily. Resumed home meds. Lifestyle change diet modification recommended. (7) Hypertension Normotensive. Euvolemic on the day of discharge. Patient noted to be hypotensive on admission not sure if this was due to sublingual nitroglycerin or actually his BP is overtreated. Home meds are: Lasix 40 mg p.o. daily Albuterol sulfate as needed Metoprolol 25 p.o. daily Llosartan 50 mg p.o. daily Hydrochlorothiazide 25 mg p.o. daily Amlodipine 10 mg p.o. daily Continued on metoprolol, losartan, Lasix, helld hydrochlorothiazide and amlodipine as patient was noted to be hypotensive on admission and pressures are low normal. Discharged on Lasix, metoprolol, losartan. Asked to hold hydrochlorothiazide and amlodipine. Patient has an appointment on 04/12/2019 with PCP for readjustment of his meds. (8) KEARA (obstructive sleep apnea) Has CPAP at home. Was a started on CPAP nocturnal. Outpatient PCP follow-up Weight loss and dietary modification recommended. (9) Tobacco dependence Current day smoker. Advised on abstinence. Provided with NicoDerm patch. (10) Obesity (BMI 30.0-34.9) TSH WNL in 2017. Likely his antipsychotics have a role to play. Diet and lifestyle modification recommended. Patient has KEARA and wearing CPAP at night. (11) Diabetes Controlled. Hemoglobin A1c 6.0%. Takes metformin thousand grams p.o. twice daily. Was a started continue basal, prandial and sliding scale insulin. Hypoglycemia protocol, diabetic diet. Adjust meds as needed. Discharged on metformin thousand milligrams p.o. twice daily. Follow-up with PCP. (12) COPD (chronic obstructive pulmonary disease) Not on home O2. Unfortunately current tobacco user. Takes albuterol as needed at home. Was started on DuoNeb's, ICS, LMA, LABA, supplemental oxygen, PRN BiPAP. Physical Exam Vital Signs: Temp Pulse Resp BP Pulse Ox 97.4 F 84 18 117/63 97 04/04/19 09:43 04/04/19 09:43 04/04/19 09:43 04/04/19 09:43 04/04/19 09:43 Pulse Oximeter Continuous Start: 04/01/19 17:28 Freq: RTQ4 Status: Discharge Protocol: Document 04/04/19 07:36 [facility] (Rec: 04/04/19 09:45 [facility] [email or web address]) Pulse Oximetry Assessment Oxygen Saturation (92-100) 95 Oxygen Delivery Method Room Air Fraction of Inspired Oxygen (FIO2) 21 Equipment Usage Equipment in Use Continuous SpO2 Machine # [id number] Intake & Output 04/03/19 04/04/19 04/05/19 07:59 06:59 06:59 Intake Total Output Total Balance Weight General appearance: PRESENT: no acute distress, obese, well-developed, well- nourished Head exam: PRESENT: atraumatic, normocephalic Eye exam: PRESENT: conjunctiva pink, EOMI, PERRLA. ABSENT: scleral icterus Ear exam: PRESENT: normal external ear exam Mouth exam: PRESENT: moist, tongue midline Neck exam: ABSENT: carotid bruit, JVD, lymphadenopathy, thyromegaly Respiratory exam: PRESENT: clear to auscultation mendel. ABSENT: rales, rhonchi, wheezes Cardiovascular exam: PRESENT: RRR. ABSENT: diastolic murmur, rubs, systolic murmur Pulses: PRESENT: normal dorsalis pedis pul Vascular exam: PRESENT: normal capillary refill GI/Abdominal exam: PRESENT: normal bowel sounds, soft. ABSENT: distended, guarding, mass, organolmegaly, rebound, tenderness Rectal exam: PRESENT: deferred Extremities exam: PRESENT: full ROM. ABSENT: calf tenderness, clubbing, pedal edema Musculoskeletal exam: PRESENT: other - Lt BKA Neurological exam: PRESENT: alert, awake, oriented to person, oriented to place, oriented to time, oriented to situation, CN II-XII grossly intact. ABSENT: motor sensory deficit Psychiatric exam: PRESENT: appropriate affect, normal mood. ABSENT: homicidal ideation, suicidal ideation Skin exam: PRESENT: dry, intact, warm. ABSENT: cyanosis, rash Results Laboratory Results: WBC 9.7 10^3/uL (4.0-10.5) 04/04/19 04:46 RBC 4.16 10^6/uL (4.35-5.55) L 04/04/19 04:46 Hgb 13.4 g/dL (13.5-17.0) L 04/04/19 04:46 Hct 39.4 % (37.9-51.0) 04/04/19 04:46 MCV 95 fl (80-97) 04/04/19 04:46 MCH 32.3 pg (27.0-33.4) 04/04/19 04:46 MCHC 34.0 g/dL (32.0-36.0) 04/04/19 04:46 RDW 14.2 % (11.5-14.0) H 04/04/19 04:46 Plt Count 142 10^3/uL (150-450) L 04/04/19 04:46 Lymph % (Auto) 6.2 % (13-45) L 04/04/19 04:46 [place] % (Auto) 3.9 % (3-13) 04/04/19 04:46 Eos % (Auto) 0.0 % (0-6) 04/04/19 04:46 Baso % (Auto) 0.2 % (0-2) 04/04/19 04:46 Absolute Neuts (auto) 8.7 10^3/uL (1.7-8.2) H 04/04/19 04:46 Absolute Lymphs (auto) 0.6 10^3/uL (0.5-4.7) 04/04/19 04:46 Absolute Monos (auto) 0.4 10^3/uL (0.1-1.4) 04/04/19 04:46 Absolute Eos (auto) 0.0 10^3/uL (0.0-0.6) 04/04/19 04:46 Absolute Basos (auto) 0.0 10^3/uL (0.0-0.2) 04/04/19 04:46 Total Counted 100 04/03/19 04:47 Seg Neutrophils % 89.7 % (42-78) H 04/04/19 04:46 Seg Neuts % (Manual) 86 % (42-78) H 04/03/19 04:47 Band Neutrophils % 4 % (3-5) 04/03/19 04:47 Lymphocytes % (Manual) 9 % (13-45) L 04/03/19 04:47 Monocytes % (Manual) 1 % (3-13) L 04/03/19 04:47 Eosinophils % (Manual) 0 % (0-6) 04/03/19 04:47 Basophils % (Manual) 0 % (0-2) 04/03/19 04:47 Abs Neuts (Manual) 13.6 10^3/uL (1.7-8.2) H 04/03/19 04:47 Abs Lymphs (Manual) 1.4 10^3/uL (0.5-4.7) 04/03/19 04:47 Abs Monocytes (Manual) 0.2 10^3/uL (0.1-1.4) 04/03/19 04:47 Absolute Eos (Manual) 0.0 10^3/uL (0.0-0.6) 04/03/19 04:47 Abs Basophils (Manual) 0.0 10^3/uL (0.0-0.2) 04/03/19 04:47 Platelet Comment ADEQUATE 04/03/19 04:47 RBC Morph Comment NORMO-CYTIC/CHROMIC 04/03/19 04:47 PT 13.0 SEC (11.4-15.4) 04/01/19 13:25 INR 0.98 04/01/19 13:25 APTT 28.4 SEC (23.5-35.8) 04/01/19 13:25 Sodium 144.9 mmol/L (137-145) 04/03/19 04:47 Potassium 4.0 mmol/L (3.6-5.0) 04/03/19 04:47 Chloride 111 mmol/L (98-107) H 04/03/19 04:47 Carbon Dioxide 27 mmol/L (22-30) 04/03/19 04:47 Anion Gap 7 (5-19) 04/03/19 04:47 BUN 16 mg/dL (7-20) 04/03/19 04:47 Creatinine 0.63 mg/dL (0.52-1.25) 04/03/19 04:47 Est GFR ( Amer) > 60 (>60) 04/03/19 04:47 Est GFR (MDRD) Non-Af > 60 (>60) 04/03/19 04:47 Glucose 141 mg/dL (75-110) H 04/03/19 04:47 POC Glucose 128 mg/dL (70-110) H 04/04/19 08:24 Hemoglobin A1c % 6.0 % (4.7-6.0) 04/02/19 05:50 Lactic Acid 0.8 mmol/L (0.7-2.1) 04/01/19 16:30 Calcium 9.0 mg/dL (8.4-10.2) 04/03/19 04:47 Magnesium 1.9 mg/dL (1.6-2.3) 04/03/19 04:47 Total Bilirubin 0.4 mg/dL (0.2-1.3) 04/03/19 04:47 Direct Bilirubin 0.2 mg/dL (0.0-0.4) 04/03/19 04:47 Neonat Total Bilirubin Not Reportable 04/03/19 04:47 Neonat Direct Bilirubin Not Reportable 04/03/19 04:47 Neonat Indirect Bili Not Reportable 04/03/19 04:47 AST 34 U/L (17-59) 04/03/19 04:47 ALT 70 U/L (<50) 04/03/19 04:47 Alkaline Phosphatase 207 U/L (38-126) H 04/03/19 04:47 Creatine Kinase 174 U/L (55-170) H 04/01/19 13:25 CK-MB (CK-2) 1.12 ng/mL (<4.55) 04/01/19 13:25 Troponin I < 0.012 ng/mL 04/01/19 17:10 Total Protein 6.8 g/dL (6.3-8.2) 04/03/19 04:47 Albumin 3.7 g/dL (3.5-5.0) 04/03/19 04:47 Urine Color YELLOW 04/01/19 15:05 Urine Appearance CLEAR 04/01/19 15:05 Urine pH 6.0 (5.0-9.0) 04/01/19 15:05 Ur Specific [place] 1.008 04/01/19 15:05 Urine Protein NEGATIVE mg/dL (NEGATIVE) 04/01/19 15:05 Urine Glucose (UA) NEGATIVE mg/dL (NEGATIVE) 04/01/19 15:05 Urine Ketones NEGATIVE mg/dL (NEGATIVE) 04/01/19 15:05 Urine Blood NEGATIVE (NEGATIVE) 04/01/19 15:05 Urine Nitrite NEGATIVE (NEGATIVE) 04/01/19 15:05 Urine Bilirubin NEGATIVE (NEGATIVE) 04/01/19 15:05 Urine Urobilinogen NEGATIVE mg/dL (<2.0) 04/01/19 15:05 Ur Leukocyte Esterase NEGATIVE (NEGATIVE) 04/01/19 15:05 Urine WBC (Auto) 1 /HPF 04/01/19 15:05 Urine RBC (Auto) 0 /HPF 04/01/19 15:05 U Hyaline Cast (Auto) 49 /LPF 04/01/19 15:05 Squamous Epi Cells Auto <1 /HPF 04/01/19 15:05 Urine Mucus (Auto) OCC /LPF 04/01/19 15:05 Urine Ascorbic Acid NEGATIVE (NEGATIVE) 04/01/19 15:05 Urine Opiates Screen UNCONFIRMED POSITIVE 04/01/19 15:05 Urine Methadone Screen NEGATIVE 04/01/19 15:05 Ur Barbiturates Screen NEGATIVE 04/01/19 15:05 Ur Phencyclidine Scrn NEGATIVE 04/01/19 15:05 Ur Amphetamines Screen NEGATIVE 04/01/19 15:05 U Benzodiazepines Scrn NEGATIVE 04/01/19 15:05 Urine Cocaine Screen NEGATIVE 04/01/19 15:05 U Marijuana (THC) Screen NEGATIVE 04/01/19 15:05 04/01/19 04/01/19 13:25 17:10 CK-MB (CK-2) 1.12 Troponin I < 0.012 < 0.012 Impressions: Chest X-Ray 04/01/19 13:23 IMPRESSION: NO SIGNIFICANT RADIOGRAPHIC FINDING IN THE CHEST. Chest/Abdomen CTA 04/01/19 14:34 IMPRESSION: 1. Evaluation for pulmonary embolism is limited by marginal contrast bolus; main pulmonary artery HU = 165. Within this limitation, no evidence of pulmonary embolism through the proximal segmental pulmonary arterial level. 2. There is new consolidation of the lingula, concerning for infection. 3. Emphysema. 4. Coronary artery disease. Plan Time Spent: Greater than 30 Minutes Stroke Is this a Stroke Patient?: No Acute Heart Failure - Is this a Heart Failure Patient?: No
== END 2019-04-04 11:35 | disposition home or self-care (01) | DRG 193 ==
LOC: ER 13:05 → EH 16:57 → 5 20:17
PROVIDERS: ADMIT Hospitalist; ATTEND Hospitalist
DX: J15.4 Pneumonia due to other streptococci (principal); J96.21 Acute and chronic respiratory failure with hypoxia; N17.9 Acute kidney failure, unspecified; I95.9 Hypotension, unspecified; I25.10 Atherosclerotic heart disease of native coronary artery without angina pectoris; G47.33 Obstructive sleep apnea (adult) (pediatric); E87.6 Hypokalemia; E66.9 Obesity, unspecified; E78.00 Pure hypercholesterolemia, unspecified; J43.9 Emphysema, unspecified; F17.210 Nicotine dependence, cigarettes, uncomplicated; E88.81 Metabolic syndrome and other insulin resistance; G43.909 Migraine, unspecified, not intractable, without status migrainosus; E78.5 Hyperlipidemia, unspecified; I10 Essential (primary) hypertension; E11.9 Type 2 diabetes mellitus without complications; K21.9 Gastro-esophageal reflux disease without esophagitis; Z79.84 Long term (current) use of oral hypoglycemic drugs; Z90.49 Acquired absence of other specified parts of digestive tract; Z89.511 Acquired absence of right leg below knee; Z82.49 Family history of ischemic heart disease and other diseases of the circulatory system; Z83.3 Family history of diabetes mellitus; Z88.8 Allergy status to other drugs, medicaments and biological substances
CPT/HCPCS: 36415; 71045; 71275; 80048; 80053; 80307; 81001; 82550; 82553; 82962; 83036; 83605; 83735; 84484; 85025; 85610; 85730; 87040; 93005; 93010; 94640; 94660; 94762; 96360; 96361; 99285; J0456; J0696; J1650; J1815; J2920; J3490; J7030; J7060; J7620

== ENCOUNTER 2019-04-14 12:22 | Emergency (ER) | payer MEDICARE, MEDICAID ==
--- NOTE | 2019-04-14 12:37 | ER Document Report ---
ED Medical Screen (RME) - General Chief Complaint: Breathing Difficulty Stated Complaint: DIFFICULTY BREATHING Time Seen by Provider: 04/14/19 12:33 Primary Care Provider: ROBERTO MELGAR FNP-C [Primary Care Provider] - Follow up as needed Mode of Arrival: Ambulatory Information source: Patient Notes: 53-year-old male positive smoker with recent history of pneumonia presents to the emergency department with complaints of shortness of breath difficulty getting a deep breath. Was sent over here by his provider. Reports he was recently admitted to the hospital for pneumonia April 01 through April 04. Reports he feels the same way. Reports fever last night. Respiratory rate even unlabored. I have greeted and performed a rapid initial assessment of this patient. A comprehensive ED assessment and evaluation of the patient, analysis of test results and completion of the medical decision making process will be conducted by additional ED providers. Dictation of this chart was performed using voice recognition software; therefore, there may be some unintended grammatical errors. TRAVEL OUTSIDE OF THE [place] IN LAST 30 DAYS: No - Related Data Allergies/Adverse Reactions: sumatriptan [From Imitrex] Allergy (Verified 04/14/19 12:29) tramadol [From Ultram] Allergy (Verified 04/14/19 12:29) Home Medications: B/P. cholesterol. psych meds Past Medical History - Past Medical History Cardiac Medical History: Reports: Hx Coronary Artery Disease, Hx Hypercholesterolemia, Hx Hypertension Denies: Hx Atrial Fibrillation, Hx Congestive Heart Failure, Hx DVT, Hx Heart Attack Pulmonary Medical History: Reports: Hx Asthma, Hx Bronchitis, Hx COPD, Hx Sleep Apnea Neurological Medical History: Reports: Hx Migraine. Denies: Hx Seizures Endocrine Medical History: Reports: Hx Diabetes Mellitus Type 2. Denies: Hx Hyperthyroidism, Hx Hypothyroidism Renal/ Medical History: Reports: Hx Kidney Stones. Denies: Hx Peritoneal Dialysis GI Medical History: Reports: Hx Gastroesophageal Reflux Disease. Denies: Hx Diverticulitis, Hx Pancreatitis, Hx Ulcerative Colitis Musculoskeltal Medical History: Reports Hx Musculoskeletal Trauma - 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, right femur fracture right humerus fx Skin Medical History: Reports Hx Cellulitis - Take abscesses behind the right knee from prosthesis, Denies Hx Eczema, Denies Hx Psoriasis Psychiatric Medical History: Reports: Hx Depression Traumatic Medical History: Reports: Hx Fractures - Right femur, right BKA right humerus fx Past Surgical History: Reports: Hx Abdominal Surgery - aneurysm, Hx Cholecystectomy, Hx Orthopedic Surgery - Right BKA, titanium sukumar to the right femur, right humerus ORIF, Hx Vascular Surgery - Aortic aneurysm repair - Immunizations Immunizations up to date: Yes Hx Diphtheria, Pertussis, Tetanus Vaccination: Yes Physical Exam - Vital signs Vitals: Temp Pulse Resp BP Pulse Ox 97.5 F 86 20 127/63 H 96 04/14/19 12:28 04/14/19 12:28 04/14/19 12:28 04/14/19 12:28 04/14/19 12:28 Course - Vital Signs Vital signs: Temp Pulse Resp BP Pulse Ox 97.5 F 86 20 127/63 H 96 04/14/19 12:28 04/14/19 12:28 04/14/19 12:28 04/14/19 12:28 04/14/19 12:28 Doctor's Discharge - Discharge Referrals: ROBERTO MELGAR FNP-C [Primary Care Provider] - Follow up as needed
--- NOTE | 2019-04-14 13:10 | RADIOLOGY REPORT (SQ) ---
EXAM DESCRIPTION: CHEST 2 VIEWS COMPLETED DATE/TIME: 04/14/2019 1:02 pm REASON FOR STUDY: sob COMPARISON: 04/01/2019 EXAM PARAMETERS: NUMBER OF VIEWS: two views TECHNIQUE: Digital Frontal and Lateral radiographic views of the chest acquired. RADIATION DOSE: NA LIMITATIONS: none FINDINGS: LUNGS AND PLEURA: No opacities, masses or pneumothorax. No pleural effusion. MEDIASTINUM AND HILAR STRUCTURES: No masses or contour abnormalities. HEART AND VASCULAR STRUCTURES: Heart normal size. No evidence for failure. BONES: No acute findings. HARDWARE: None in the chest. OTHER: No other significant finding. IMPRESSION: NO ACUTE RADIOGRAPHIC FINDING IN THE CHEST. TECHNICAL DOCUMENTATION: JOB ID: [id number] [employer]- All Rights Reserved Reading location - IP/workstation name: [email or web address]
[2019-04-14 13:18] LABS: ABSOLUTE EOSINOPHILS # (AUTO) 0.1 10^3/uL (0.0-0.6); ABSOLUTE LYMPHOCYTES (AUTO) 1.7 10^3/uL (0.5-4.7); ABSOLUTE MONOCYTES (AUTO) 0.5 10^3/uL (0.1-1.4); ABSOLUTE NEUT (AUTO) 6.6 10^3/uL (1.7-8.2); BASOPHILS % (AUTO) 0.5 % (0-2); EOSINOPHILS % (AUTO) 1.4 % (0-6); HEMATOCRIT 44.2 % (37.9-51.0); HEMOGLOBIN 15.5 g/dL (13.5-17.0); LYMPHOCYTES % (AUTO) 18.4 % (13-45); MEAN CORPUSCULAR HGB CONC 35.1 g/dL (32.0-36.0); MEAN CORPUSCULAR VOLUME 94 fl (80-97); MONOCYTES % (AUTO) 6.1 % (3-13); PLATELET COUNT 174 10^3/uL (150-450); SEGMENTED NEUTROPHILS % (AUTO) 73.6 % (42-78); TOTAL CELLS COUNTED % (AUTO) 100 %
[2019-04-14 13:40] LABS: ALBUMIN 4.1 g/dL (3.5-5.0); ALKALINE PHOSPHATASE 204 U/L (38-126); ANION GAP 7 (5-19); ASPARTATE AMINO TRANSFERASE 158 U/L (17-59); BILIRUBIN,DIRECT 0.6 mg/dL (0.0-0.4); BILIRUBIN,TOTAL 1.3 mg/dL (0.2-1.3); BLOOD UREA NITROGEN 10 mg/dL (7-20); CALCIUM 9.2 mg/dL (8.4-10.2); CARBON DIOXIDE 30 mmol/L (22-30); CHLORIDE 100 mmol/L (98-107); GLUCOSE 103 mg/dL (75-110); POTASSIUM 4.1 mmol/L (3.6-5.0); TOTAL PROTEIN 7.2 g/dL (6.3-8.2)
--- NOTE | 2019-04-14 14:26 | ER Document Report ---
ED General - General Chief Complaint: Breathing Difficulty Stated Complaint: DIFFICULTY BREATHING Time Seen by Provider: 04/14/19 12:33 Primary Care Provider: ROBERTO MELGAR FNP-C [Primary Care Provider] - Follow up as needed Mode of Arrival: Ambulatory TRAVEL OUTSIDE OF THE [place] IN LAST 30 DAYS: No - Related Data Allergies/Adverse Reactions: sumatriptan [From Imitrex] Allergy (Verified 04/14/19 12:29) tramadol [From Ultram] Allergy (Verified 04/14/19 12:29) Home Medications: B/P. cholesterol. psych meds Past Medical History - General Information source: Patient - Social History Smoking Status: Current Every Day Smoker Family History: CAD, DM, Hypertension, Other - Hypertension, cardiac valve disease Patient has suicidal ideation: No Patient has homicidal ideation: No - Past Medical History Cardiac Medical History: Reports: Hx Coronary Artery Disease, Hx Hypercholesterolemia, Hx Hypertension Denies: Hx Atrial Fibrillation, Hx Congestive Heart Failure, Hx DVT, Hx Heart Attack Pulmonary Medical History: Reports: Hx Asthma, Hx Bronchitis, Hx COPD, Hx Sleep Apnea Neurological Medical History: Reports: Hx Migraine. Denies: Hx Seizures Endocrine Medical History: Reports: Hx Diabetes Mellitus Type 2. Denies: Hx Hyperthyroidism, Hx Hypothyroidism Renal/ Medical History: Reports: Hx Kidney Stones. Denies: Hx Peritoneal Dialysis GI Medical History: Reports: Hx Gastroesophageal Reflux Disease. 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, right femur fracture right humerus fx Skin Medical History: Reports Hx Cellulitis - Take abscesses behind the right knee from prosthesis, Denies Hx Eczema, Denies Hx Psoriasis Psychiatric Medical History: Reports: Hx Depression Traumatic Medical History: Reports: Hx Fractures - Right femur, right BKA right humerus fx Past Surgical History: Reports: Hx Abdominal Surgery - aneurysm, Hx Cholecystectomy, Hx Orthopedic Surgery - Right BKA, titanium sukumar to the right femur, right humerus ORIF, Hx Vascular Surgery - Aortic aneurysm repair - Immunizations Immunizations up to date: Yes Hx Diphtheria, Pertussis, Tetanus Vaccination: Yes Physical Exam - Vital signs Vitals: Temp Pulse Resp BP Pulse Ox 97.5 F 86 20 127/63 H 96 04/14/19 12:28 04/14/19 12:28 04/14/19 12:28 04/14/19 12:28 04/14/19 12:28 - Notes Notes: Patient presents emerged department clinic shortness of breath and on her past 3 days. He felt warm but no definite fevers. He had a nonproductive cough but no chest pain. Using aerosol machine twice a day with some relief. Patient was discharged from the hospital 10 days ago with pneumonia and had a 3-day course of antibiotics that he finished. Medical history sent for hypertension COPD coronary artery disease repair of an aneurysm. Social history he does smoke but does not drink Review of systems pertinent positives and negatives in HPI otherwise all the systems were reviewed and acutely negative PHYSICIAN EXAM -vital signs are noted triage note and note from triage reviewed GENERAL: Well-appearing, well-nourished and in __no acute distress____ HEAD: Atraumatic, normocephalic. EYES: Pupils equal round and reactive to light, extraocular movements intact, sclera anicteric, conjunctiva are normal. ENT: nares patent, oropharynx clear without exudates. Moist mucous membranes. NECK: supple without lymphadenopathy LUNGS: Breath sounds slightly decreased in the bases. She has scattered wheezes throughout again respiratory distress HEART: Regular rate and rhythm without murmurs ABDOMEN: Soft, nontender, normoactive bowel sounds. EXTREMITIES: No deformity, no edema. NEUROLOGICAL: No focal neurological deficits. Moves all extremities spontaneously and on command. PSYCH: Normal mood, normal affect. SKIN: Warm, Dry, normal turgor, no rashes or lesions noted. BACK-nontender in the midline Course - Re-evaluation Re-evalutation: 04/14/19 16:48 Addendum he has no abdominal pain he said no nausea vomiting and again I think this can be followed up as an outpatient 04/14/19 16:53 Dictation was done using voice recognition software. There may be some grammatical errors which are unintentional 04/14/19 16:54 - Vital Signs Vital signs: Temp Pulse Resp BP Pulse Ox 97.5 F 86 20 127/63 H 96 04/14/19 12:28 04/14/19 12:28 04/14/19 12:28 04/14/19 12:28 04/14/19 12:28 - Laboratory Result Diagrams: 04/14/19 12:55 04/14/19 12:55 Laboratory results interpreted by me: 04/14/19 12:55 Direct Bilirubin 0.6 H AST 158 H Alkaline Phosphatase 204 H 04/14/19 16:47 His labs are reviewed including his LFTs there were elevated slightly during his last admission and improved and have been typically elevated - Diagnostic Test Radiology reviewed: Reports reviewed Discharge - Discharge Clinical Impression: Abnormal liver function test COPD (chronic obstructive pulmonary disease) Qualifiers: COPD type: COPD with acute exacerbation Qualified Code(s): J44.1 - Chronic obstructive pulmonary disease with (acute) exacerbation Condition: Good Disposition: HOME, SELF-CARE Instructions: Chronic Obstructive Lung Disease ([facility]) Additional Instructions: 04/13/19 13:55 Please review the discharge instructions Return to the ED if you feel worse or can follow-up with your family doctor Follow-up with your family doctor in 2 to 3 days if not better otherwise in 2 weeks Avoid alcohol or Tylenol products Follow his sugar closely because the prednisone may cause it to go higher Usual aerosol machine with the albuterol and the Atrovent which we will give you a prescription for-4 times a day for the next 5 days then as needed Your liver test were only abnormal and will need to be rechecked again in 2 weeks Prescriptions: Ipratropium [place] [Atrovent 0.02% Neb 0.5 Mg/2.5 Ml Vial.Neb] 0.5 mg IH ASDIR #30 vial.neb Prednisone [Deltasone] 20 mg PO TID #15 tablet Doxycycline Hyclate 100 mg PO BID #14 capsule Forms: Smoking Cessation Education Referrals: ROBERTO MELGAR FNP-C [Primary Care Provider] - Follow up as needed
[2019-04-14] MEDS ORDERED: IPRATROPIUM/ALBUTEROL 0.5-2.5 MG/3 ML AMPUL NEB ONE (14:55)
[2019-04-14] MEDS ORDERED: PREDNISONE 20 MG TABLET PO ONE (14:55)
[2019-04-14] MEDS ORDERED: DOXYCYCLINE HYCLATE 100 MG TABLET PO ONE ×2 (16:49→17:00)
[2019-04-14 17:22] VITALS: BP 122/73
--- NOTE | 2019-04-14 23:33 | EKG REPORT ---
SEVERITY:- NORMAL ECG - SINUS RHYTHM : Confirmed by: Sylwia Noe MD 14-Apr-2019 23:32:07
== END 2019-04-14 17:22 | disposition home or self-care (01) ==
LOC: ER 12:22
DX: J44.1 Chronic obstructive pulmonary disease with (acute) exacerbation (principal); R94.5 Abnormal results of liver function studies; F17.200 Nicotine dependence, unspecified, uncomplicated; I25.10 Atherosclerotic heart disease of native coronary artery without angina pectoris; E78.00 Pure hypercholesterolemia, unspecified; I10 Essential (primary) hypertension; E11.9 Type 2 diabetes mellitus without complications; Z87.442 Personal history of urinary calculi; Z89.511 Acquired absence of right leg below knee
CPT/HCPCS: 93005; 36415; 85025; 80053; 84484; 71046; 93010; A9270 ×3; J7512; J7620

== ENCOUNTER 2019-06-10 10:45 | Observation (INO) | payer MEDICARE, MEDICAID ==
[2019-06-10 11:29] LABS: ABSOLUTE BASOPHILS # (AUTO) 0.1 10^3/uL (0.0-0.2); ABSOLUTE EOSINOPHILS # (AUTO) 0.2 10^3/uL (0.0-0.6); ABSOLUTE LYMPHOCYTES (AUTO) 1.4 10^3/uL (0.5-4.7); ABSOLUTE MONOCYTES (AUTO) 0.7 10^3/uL (0.1-1.4); ABSOLUTE NEUT (AUTO) 8.6 10^3/uL (1.7-8.2); BASOPHILS % (AUTO) 0.9 % (0-2); EOSINOPHILS % (AUTO) 1.8 % (0-6); HEMATOCRIT 42.5 % (37.9-51.0); HEMOGLOBIN 14.8 g/dL (13.5-17.0); LYMPHOCYTES % (AUTO) 12.9 % (13-45); MEAN CORPUSCULAR HEMOGLOBIN 32.7 pg (27.0-33.4); MEAN CORPUSCULAR HGB CONC 34.7 g/dL (32.0-36.0); MEAN CORPUSCULAR VOLUME 94 fl (80-97); MONOCYTES % (AUTO) 6.2 % (3-13); PLATELET COUNT 186 10^3/uL (150-450); RED BLOOD COUNT 4.52 10^6/uL (4.35-5.55); RED CELL DISTRIBUTION WIDTH 14.3 % (11.5-14.0); SEGMENTED NEUTROPHILS % (AUTO) 78.2 % (42-78); TOTAL CELLS COUNTED % (AUTO) 100 %
[2019-06-10 11:52] LABS: ALBUMIN 3.8 g/dL (3.5-5.0); ALKALINE PHOSPHATASE 120 U/L (38-126); ANION GAP 9 (5-19); ASPARTATE AMINO TRANSFERASE 19 U/L (17-59); BILIRUBIN,DIRECT 0.3 mg/dL (0.0-0.4); BILIRUBIN,TOTAL 0.6 mg/dL (0.2-1.3); BLOOD UREA NITROGEN 16 mg/dL (7-20); CALCIUM 8.8 mg/dL (8.4-10.2); CARBON DIOXIDE 27 mmol/L (22-30); CHLORIDE 101 mmol/L (98-107); CREATINE KINASE 72 U/L (55-170); GLUCOSE 87 mg/dL (75-110); POTASSIUM 3.8 mmol/L (3.6-5.0); TOTAL PROTEIN 6.9 g/dL (6.3-8.2)
[2019-06-10 12:04] LABS: CREATINE KINASE MB 0.62 ng/mL (<4.55)
[2019-06-10 12:07] LABS: TROPONIN I < 0.012 ng/mL
--- NOTE | 2019-06-10 12:36 | ER Document Report ---
ED General - General Chief Complaint: Dizziness Stated Complaint: DIZZINESS TRAVEL OUTSIDE OF THE [place] IN LAST 30 DAYS: No - HPI Notes: 54M says he has been taking his blood pressure meds he does not know which ones were about 3 or 4 regularly took them this morning. They sent him from the office today because he was feeling dizzy and his blood pressure was 70 he says. He has not passed out. When I ask if he feels like his COPD is an exacerbation, he says I do not know what you mean. As I do feel like you are having shortness of breath from your COPD that is worse than usual. He says not really. I will asked if he is ever had prior hospitalizations for COPD and he says I do not think so. Per last discharge summary looks like this was a component of his admission possibly. He has a history of pneumonia though. He says he has had sweats he is woken up with in the last few nights. His cough is wet snot producing a lot of sputum. No vomiting no belly pain no other significant pain no skin changes. He has had diarrhea as well though he thinks it looked dark may be today but cannot say for sure exactly what color. Denies taking any IBU or Motrin or NSAID meds that I name and he denies - Related Data Allergies/Adverse Reactions: sumatriptan [From Imitrex] Allergy (Verified 04/14/19 12:29) tramadol [From Ultram] Allergy (Verified 04/14/19 12:29) Past Medical History - Social History Smoking Status: Current Every Day Smoker Frequency of alcohol use: None Drug Abuse: None Family History: CAD, DM, Hypertension, Other - Hypertension, cardiac valve disease Patient has suicidal ideation: No Patient has homicidal ideation: No - Past Medical History Cardiac Medical History: Reports: Hx Coronary Artery Disease, Hx Hypercholesterolemia, Hx Hypertension Denies: Hx Atrial Fibrillation, Hx Congestive Heart Failure, Hx DVT, Hx Heart Attack Pulmonary Medical History: Reports: Hx Asthma, Hx Bronchitis, Hx COPD, Hx Pneumonia, Hx Sleep Apnea Neurological Medical History: Reports: Hx Migraine. Denies: Hx Seizures Endocrine Medical History: Reports: Hx Diabetes Mellitus Type 2. Denies: Hx Hyperthyroidism, Hx Hypothyroidism Renal/ Medical History: Reports: Hx Kidney Stones. Denies: Hx Peritoneal Lata lysis GI Medical History: Reports: Hx Gastroesophageal Reflux Disease. 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, right femur fracture right humerus fx Skin Medical History: Reports Hx Cellulitis - Take abscesses behind the right knee from prosthesis, Denies Hx Eczema, Denies Hx Psoriasis Psychiatric Medical History: Reports: Hx Depression Traumatic Medical History: Reports: Hx Fractures - Right femur, right BKA right humerus fx Past Surgical History: Reports: Hx Abdominal Surgery - aneurysm, Hx Cholecystectomy, Hx Orthopedic Surgery - Right BKA, titanium sukumar to the right femur, right humerus ORIF, Hx Vascular Surgery - Aortic aneurysm repair - Immunizations Immunizations up to date: Yes Hx Diphtheria, Pertussis, Tetanus Vaccination: Yes Review of Systems - Review of Systems Constitutional: See HPI, Chills, Diaphoresis, Malaise EENT: See HPI. denies: Eye discharge, Blurred vision, Tearing, Ear pain, Throat pain, Difficulty swallowing, Throat swelling, Mouth pain, Mouth swelling, Dental problem Cardiovascular: No symptoms reported, Lightheaded. denies: Chest pain, Palpitations, Orthopnea, Syncope, Edema, Paroxysmal Nocturnal Dysp Respiratory: See HPI, Cough, Short of breath. denies: Hurts to breathe, Hemop tysis, Sputum, Stridor Gastrointestinal: No symptoms reported Genitourinary: No symptoms reported Male Genitourinary: No symptoms reported Musculoskeletal: No symptoms reported Skin: No symptoms reported Hematologic/Lymphatic: No symptoms reported Neurological/Psychological: No symptoms reported Physical Exam - Vital signs Vitals: Resp Pulse Ox 19 93 06/10/19 11:03 06/10/19 11:03 - Notes Notes: Wet nonproductive cough speaks in full sentences on room air 98%. He is at the time of my exam 90 systolic. map 81, heart rate 70, respirations 17 at time has had almost 2 L total infused. After this first liter of LR in our department he will be at a total of 2.5 L total. - General General appearance: Alert, Other - appears unwell, nontoxic though In distress: None - HEENT Head: Normocephalic, Atraumatic Eyes: No: Pale conjunctiva, Scleral icterus Extraocular movements intact: Yes Pupils: PERRL Nasal: Normal Mouth/Lips: Normal Mucous membranes: Dry Pharynx: Normal Neck: Normal - Respiratory Respiratory status: Other - He has distant air sounds bilateral posterior lung kurtz. With a overall end expiratory wheeze that is faint. Also rhonchorous i n the right middle lobe on posterior auscultation. No increased work of breathing mild tachypnea though around mid 20s. - Cardiovascular Rhythm: Regular Murmur: No Pulses: Normal: Radial, Posterior tibial Normal capillary refill: Yes Course - Re-evaluation Re-evalutation: 06/14/19 15:19 BP improved, lactate not elvaed other labs reviewed. on lateral cxr has evidence of basilar consolidation, which along w/ h.o soaking sweats for last 2 nights and hotn will treat for PNA. adm to hosp for sepsis, pna did have admission in last 3 mo have ordered ctx and azithro. - Vital Signs Vital signs: Temp Pulse Resp BP Pulse Ox 98.3 F 91 18 132/78 H 92 06/11/19 14:28 06/11/19 14:28 06/11/19 14:28 06/11/19 14:28 06/11/19 14:28 - Laboratory Result Diagrams: 06/11/19 03:47 06/11/19 03:47 Laboratory results interpreted by me: 06/10/19 06/10/19 11:13 11:13 WBC 11.0 H RDW 14.3 H Lymph % (Auto) 12.9 L Absolute Neuts (auto) 8.6 H Seg Neutrophils % 78.2 H Sodium 136.6 L - Diagnostic Test Radiology reviewed: Image reviewed, Reports reviewed - EKG Interpretation by [place] EKG shows normal: Sinus rhythm - rate 70s all intervals wnl no ectopy. axis wnl. voltage wnl. no tw changes from prior no st elev depressions. Discharge - Discharge Clinical Impression: Cough, Night sweats Hypotension Qualifiers: Hypotension type: hypotension due to hypovolemia Qualified Code(s): I95.89 - Other hypotension; E86.1 - Hypovolemia Sepsis Qualifiers: Sepsis type: sepsis due to unspecified organism Sepsis acute organ dysfunction status: unspecified Qualified Code(s): A41.9 - Sepsis, unspecified organism Condition: Stable Disposition: ADMITTED INPATIENT Admitting Provider: Viki (Hospitalist) Unit Admitted: Telemetry
[2019-06-10] MEDS ORDERED: RINGERS SOLUTION,LACTATED 1,000 ML IV ONE (12:54)
[2019-06-10] MEDS ORDERED: AZITHROMYCIN INJ 500 MG VIAL IV ONE (13:06)
[2019-06-10] MEDS ORDERED: CEFTRIAXONE 1 GM/D5W RTU 1 GM/50 ML RTUPB IV ONE (13:06)
[2019-06-10] MEDS ORDERED: IPRATROPIUM/ALBUTEROL 0.5-2.5 MG/3 ML AMPUL NEB PRN (13:07)
--- NOTE | 2019-06-10 13:39 | RADIOLOGY REPORT (SQ) ---
EXAM DESCRIPTION: CHEST SINGLE VIEW COMPLETED DATE/TIME: 06/10/2019 11:57 am REASON FOR STUDY: SOB, cough COMPARISON: 04/01/2019. EXAM PARAMETERS: NUMBER OF VIEWS: One view. TECHNIQUE: Single frontal radiographic view of the chest acquired. RADIATION DOSE: NA LIMITATIONS: None. FINDINGS: LUNGS AND PLEURA: No opacities, masses or pneumothorax. No pleural effusion. MEDIASTINUM AND HILAR STRUCTURES: No masses. Contour normal. HEART AND VASCULAR STRUCTURES: Heart normal in size. Normal vasculature. BONES: No acute findings. HARDWARE: None in the chest. OTHER: No other significant finding. IMPRESSION: NO ACUTE RADIOGRAPHIC FINDING IN THE CHEST. TECHNICAL DOCUMENTATION: JOB ID: [id number] [employer]- All Rights Reserved Reading location - IP/workstation name: [email or web address]
[2019-06-10 13:47] LABS: APPEARANCE,URINE CLEAR; BILIRUBIN,URINE NEGATIVE (NEGATIVE); COLOR,URINE YELLOW; GLUCOSE, URINE NEGATIVE (NEGATIVE); KETONES,URINE NEGATIVE (NEGATIVE); LEUKOCYTE ESTERASE,URINE NEGATIVE (NEGATIVE); NITRITE,URINE NEGATIVE (NEGATIVE); PROTEIN,URINE NEGATIVE (NEGATIVE); URINE SPECIFIC GRAVITY 1.006; UROBILINOGEN,URINE NEGATIVE mg/dL (<2.0)
[2019-06-10] MEDS ORDERED: ALBUTEROL SULFATE 0.083% NEB 2.5 MG/3 ML AMPUL NEB PRN (14:54)
[2019-06-10] MEDS ORDERED: GUAIFENESIN SYRP 200 MG/10 ML UDC PO PRN (14:54)
--- NOTE | 2019-06-10 15:02 | RADIOLOGY REPORT (SQ) ---
EXAM DESCRIPTION: CHEST SINGLE VIEW COMPLETED DATE/TIME: 06/10/2019 2:47 pm REASON FOR STUDY: lateral view needed. cough hypotension COMPARISON: Same day. NUMBER OF VIEWS: One view. TECHNIQUE: Lateral view of the chest. LIMITATIONS: None. FINDINGS: LUNGS AND PLEURA: No opacities, masses or pneumothorax. No pleural effusion. MEDIASTINUM AND HILAR STRUCTURES: No masses. Contour normal. HEART AND VASCULAR STRUCTURES: Heart normal in size. Normal vasculature. BONES: No acute findings. HARDWARE: None in the chest. OTHER: No other significant finding. IMPRESSION: NO SIGNIFICANT RADIOGRAPHIC FINDING IN THE CHEST. TECHNICAL DOCUMENTATION: JOB ID: [id number] [employer]- All Rights Reserved Reading location - IP/workstation name: [email or web address]
[2019-06-10] MEDS: NORMAL SALINE 1000 ML 1,000 ML IV PRN (16:29)
[2019-06-10] MEDS ORDERED: (PENDING PHARMACY ID) (Oxycodone Hcl/Acetaminophen [Percocet 10-325 Mg Tablet] 1 TAB) PO PRN ×2 (17:15→17:34)
--- NOTE | 2019-06-10 17:15 | PDOC H&P ---
History of Present Illness Admission Date/PCP: 06/10/19 14:44 ROBERTO MELGAR, ANGEL History of Present Illness: JEISON YAP JR is a 54 year old male past medical history of CAD, CKD, hyp erlipidemia, hypertension, KEARA, COPD who was recently discharged on 04/04/2019 from [facility] after being treated for pneumonia. Patient presented to ED today sent from his PCP office for evaluation of low BPs. Noted to have systolic blood pressures in the 70s and was complaining of feeling dizzy. Patient is stating that he has developed nonbloody diarrhea for the last 10 days, having about 4-5 bowel movements every day. He also developed productive cough associated with pleuritic chest pain and nig ht sweats for the last 3 to 4 days. Denies any recent travel, sick contact, recent hospitalization or any antibiotic exposure. Denies any shortness of breath, nausea, vomiting, abdominal pain, headache, orthopnea, paroxysmal nocturnal dyspnea, lower extremity swelling, any urinary symptoms. Past Medical History Cardiac Medical History: Reports: Coronary Artery Disease, Hyperlipidema, Hypertension Denies: Atrial Fibrillation, Congestive Heart Failure, DVT, Myocardial Infarction Pulmonary Medical History: Reports: Asthma, Bronchitis, Chronic Obstructive Pulmonary Disease (COPD), Pneumonia, Sleep Apnea Neurological Medical History: Reports: Migraine Denies: Seizures Endocrine Medical History: Reports: Diabetes Mellitus Type 2 Denies: Hyperthyroidism, Hypothyroidism GI Medical History: Reports: Gastroesophageal Reflux Disease Denies: Diverticulitis, Ulcerative Colitis Skin Medical History: Denies: Eczema, Psoriasis Psychiatric Medical History: Reports: Depression Hematology: Denies: Anemia, Bleeding Tendencies Past Surgical History Past Surgical History: Reports: Cholecystectomy, Orthopedic Surgery - Right BKA, titanium sukumar to the right femur, right humerus ORIF, Vascular Surgery - Aortic aneurysm repair Social History Smoking Status: Current Every Day Smoker Frequency of Alcohol Use: Rare Hx Recreational Drug Use: No Drugs: None Hx Prescription Drug Abuse: No Family History Family History: CAD, DM, Hypertension, Other - Hypertension, cardiac valve disease Parental Family History Reviewed: Yes Children Family History Reviewed: Yes Sibling(s) Family History Reviewed.: Yes Medication/Allergy Home Medications: Aripiprazole [Abilify 10 mg Tablet] 10 mg PO DAILY 06/10/19 Citalopram Hydrobromide [Celexa 40 mg Tablet] 40 mg PO DAILY 06/10/19 Gabapentin 800 mg PO Q8 06/10/19 Isosorbide Mononitrate [Imdur 30 mg Tablet.er] 30 mg PO DAILY 06/10/19 Losartan Potassium [Cozaar 100 mg Tablet] 100 mg PO DAILY 06/10/19 Metformin HCl [Glucophage 500 mg Tablet] 500 mg PO BID 06/10/19 Metoprolol Succinate [Toprol Xl 25 mg Tab.sr] 25 mg PO DAILY 06/10/19 Tiff-3 Fatty Acids [Tiff-3] 1,000 mg PO QID 06/10/19 Omeprazole Magnesium [Prilosec Otc] 20 mg PO BID 06/10/19 Oxcarbazepine [Trileptal] 300 mg PO Q12 06/10/19 Oxycodone HCl/Acetaminophen [Percocet 10-325 mg Tablet] 1 tab PO Q6HP PRN 06/10/19 Ramelteon [Rozerem] 8 mg PO DAILY 06/10/19 Trazodone HCl [Desyrel] 300 mg PO QHS 06/10/19 Umeclidinium Brm/Vilanterol Tr [Anoro Ellipta 62.5-25 Mcg INH] 1 puff IH DAILY 06/10/19 Allergies/Adverse Reactions: sumatriptan [From Imitrex] Allergy (Verified 04/14/19 12:29) tramadol [From Ultram] Allergy (Verified 04/14/19 12:29) Physical Exam Vital Signs: Temp Pulse Resp BP Pulse Ox 16 119/60 95 06/10/19 14:01 06/10/19 14:00 06/10/19 14:01 Intake & Output 06/09/19 06/10/19 06/11/19 06:59 06:59 06:59 Intake Total 1050 Output Total 1050 Balance 0 Weight 98.9 kg Results Laboratory Results: 06/10/19 11:13 06/10/19 11:13 06/10/19 06/10/19 06/10/19 11:13 11:13 11:13 WBC 11.0 H RBC 4.52 Hgb 14.8 Hct 42.5 MCV 94 MCH 32.7 MCHC 34.7 RDW 14.3 H Plt Count 186 Seg Neutrophils % 78.2 H Sodium 136.6 L Potassium 3.8 Chloride 101 Carbon Dioxide 27 Anion Gap 9 BUN 16 Creatinine 1.13 Est GFR ( Amer) > 60 Glucose 87 Lactic Acid 2.0 Calcium 8.8 Total Bilirubin 0.6 AST 19 Alkaline Phosphatase 120 Total Protein 6.9 Albumin 3.8 Urine Color Urine Appearance Urine pH Ur Specific [place] Urine Protein Urine Glucose (UA) Urine Ketones Urine Blood Urine Nitrite Ur Leukocyte Esterase Urine WBC (Auto) Urine RBC (Auto) 06/10/19 13:30 WBC RBC Hgb Hct MCV MCH MCHC RDW Plt Count Seg Neutrophils % Sodium Potassium Chloride Carbon Dioxide Anion Gap BUN Creatinine Est GFR ( Amer) Glucose Lactic Acid Calcium Total Bilirubin AST Alkaline Phosphatase Total Protein Albumin Urine Color YELLOW Urine Appearance CLEAR Urine pH 6.0 Ur Specific [place] 1.006 Urine Protein NEGATIVE Urine Glucose (UA) NEGATIVE Urine Ketones NEGATIVE Urine Blood NEGATIVE Urine Nitrite NEGATIVE Ur Leukocyte Esterase NEGATIVE Urine WBC (Auto) 0 Urine RBC (Auto) 0 06/10/19 06/10/19 11:13 11:13 Creatine Kinase 72 CK-MB (CK-2) 0.62 Troponin I < 0.012 Impressions: Chest X-Ray 06/10/19 14:23 IMPRESSION: NO SIGNIFICANT RADIOGRAPHIC FINDING IN THE CHEST. Assessment and Plan - Diagnosis (1) Diarrhea Qualifiers: Diarrhea type: unspecified type Qualified Code(s): R19.7 - Diarrhea, unspecified Is this a current diagnosis for this admission?: Yes Plan: Complaining of watery diarrhea for the last 10 days. Denies any abdominal pain, nausea, vomiting. Afebrile with mild leukocytosis bandemia. Denies any sick contacts or recent travel. Volume resuscitation, monitor electrolytes and replace as needed, check stool for ova and parasites, WBC, Gram stain, and C. difficile. (2) Hypotension Qualifiers: Hypotension type: hypotension due to hypovolemia Qualified Code(s): I95.89 - Other hypotension; E86.1 - Hypovolemia Is this a current diagnosis for this admission?: Yes Plan: This mostly due to hypovolemia caused by underlying diarrhea. Presented with hypotension on admission. Troponins negative. proBNP WNL. EKG WNL. Continue volume restriction guided by volume status. (3) COPD (chronic obstructive pulmonary disease) Qualifiers: Is this a current diagnosis for this admission?: Yes Plan: Does not seem to be acutely exacerbated. No wheezing on physical examination. SPO2 WNL on RA. History of non-oxygen dependent COPD. Current smoker. PRN DuoNeb's, PRN BiPAP, no indication for IV steroids, empiric IV antibiotics for presumed bronchitis VS pneumonia. (4) Hypercholesteremia Is this a current diagnosis for this admission?: Yes Plan: Restart home meds. Diet and lifestyle modification recommended. (5) KEARA (obstructive sleep apnea) Is this a current diagnosis for this admission?: Yes Plan: Nocturnal CPAP. Outpatient PCP and pulmonology follow-up. (6) Obesity (BMI 30.0-34.9) Is this a current diagnosis for this admission?: Yes Plan: TSH 2.5 on 06/25/2016. Obtain new TSH. Diet and lifestyle modification recommended. (7) Pneumonia Qualifiers: Is this a current diagnosis for this admission?: Yes Plan: Pneumonia VS bronchitis. Chest x-ray no acute abnormalities. Mild leukocytosis with no bandemia. Likely community-acquired. Empiric IV antibiotics. Sputum and blood culture. (8) Tobacco dependence Is this a current diagnosis for this admission?: Yes Plan: Advised on quitting. NicoDerm patch provided. (9) Coronary artery disease Qualifiers: Coronary Disease-Associated Artery/Lesion type: [place] artery [place] vs. transplanted heart: [place] heart Associated angina: without angina Qualified Code(s): I25.10 - Atherosclerotic heart disease of [place] coronary artery wit hout angina pectoris Is this a current diagnosis for this admission?: Yes Plan: Denies any anginal symptoms. Restart antiplatelets, statins, beta-oscar and HAILEY.
[2019-06-10] MEDS ORDERED: OXYCODONE-ACETAMINOPHEN 5-325 MG TABLET PO PRN (17:34)
[2019-06-10] MEDS ORDERED: OXYCODONE HCL IR 5 MG TABLET PO PRN (17:35)
[2019-06-10] MEDS ORDERED: (PENDING PHARMACY ID) (Omega-3 Fatty Acids [Omega-3] 1,000 MG) PO SCH (18:00)
[2019-06-10] MEDS: ALBUTEROL SULFATE 0.083% NEB 2.5 MG/3 ML AMPUL NEB SCH (18:04)
[2019-06-10] MEDS: PANTOPRAZOLE SODIUM 20 MG TABLET.DR PO SCH (18:15)
[2019-06-10] MEDS: METFORMIN HCL 500 MG TABLET PO SCH (18:15)
[2019-06-10] MEDS: OMEGA-3 ACID ETHYL ESTERS 1 GM CAPSULE PO SCH ×2 (18:15→22:08)
[2019-06-10] MEDS ORDERED: (PENDING PHARMACY ID) (Oxcarbazepine [Trileptal] 300 MG) PO SCH (22:00)
[2019-06-10] MEDS ORDERED: (PENDING PHARMACY ID) (Trazodone Hcl [Desyrel] 300 MG) PO SCH (22:00)
[2019-06-10] MEDS ORDERED: TRAZODONE HCL 50 MG TABLET PO SCH (22:00)
[2019-06-10] MEDS ORDERED: (PENDING PHARMACY ID) (Gabapentin [Gabapentin] 800 MG) PO SCH (22:00)
--- NOTE | 2019-06-10 22:04 | EKG REPORT ---
SEVERITY:- ABNORMAL ECG - SINUS RHYTHM : Confirmed by: Stu Pedraza 10-Jun-2019 22:03:59
[2019-06-10] MEDS: GUAIFENESIN 600 MG TABLET.SA PO SCH (22:09)
[2019-06-10] MEDS: FAMOTIDINE 20 MG TABLET PO SCH (22:09)
[2019-06-10] MEDS: GABAPENTIN 400 MG CAPSULE PO SCH (22:09)
[2019-06-10] MEDS: HEPARIN SOD (PORCINE) 5,000 UNIT/ML 1 ML VIAL SUBCUT SCH (22:10)
[2019-06-10] MEDS: OXCARBAZEPINE 150 MG TABLET PO SCH (22:10)
[2019-06-11 05:09] LABS: ABSOLUTE EOSINOPHILS # (AUTO) 0.1 10^3/uL (0.0-0.6); ABSOLUTE LYMPHOCYTES (AUTO) 1.6 10^3/uL (0.5-4.7); ABSOLUTE MONOCYTES (AUTO) 0.5 10^3/uL (0.1-1.4); ABSOLUTE NEUT (AUTO) 6.6 10^3/uL (1.7-8.2); BASOPHILS % (AUTO) 0.6 % (0-2); EOSINOPHILS % (AUTO) 1.5 % (0-6); HEMATOCRIT 42.1 % (37.9-51.0); HEMOGLOBIN 14.7 g/dL (13.5-17.0); LYMPHOCYTES % (AUTO) 18.3 % (13-45); MEAN CORPUSCULAR HEMOGLOBIN 32.8 pg (27.0-33.4); MEAN CORPUSCULAR HGB CONC 34.8 g/dL (32.0-36.0); MEAN CORPUSCULAR VOLUME 94 fl (80-97); MONOCYTES % (AUTO) 5.2 % (3-13); PLATELET COUNT 158 10^3/uL (150-450); RED BLOOD COUNT 4.47 10^6/uL (4.35-5.55); RED CELL DISTRIBUTION WIDTH 14.2 % (11.5-14.0); SEGMENTED NEUTROPHILS % (AUTO) 74.4 % (42-78); TOTAL CELLS COUNTED % (AUTO) 100 %; WHITE BLOOD COUNT 8.8 10^3/uL (4.0-10.5)
[2019-06-11 05:33] LABS: ALBUMIN 3.6 g/dL (3.5-5.0); ALKALINE PHOSPHATASE 110 U/L (38-126); ANION GAP 8 (5-19); ASPARTATE AMINO TRANSFERASE 19 U/L (17-59); BILIRUBIN,DIRECT 0.3 mg/dL (0.0-0.4); BILIRUBIN,TOTAL 0.4 mg/dL (0.2-1.3); BLOOD UREA NITROGEN 12 mg/dL (7-20); CALCIUM 9.1 mg/dL (8.4-10.2); CARBON DIOXIDE 30 mmol/L (22-30); CHLORIDE 104 mmol/L (98-107); GLUCOSE 118 mg/dL (75-110); POTASSIUM 3.7 mmol/L (3.6-5.0); TOTAL PROTEIN 6.7 g/dL (6.3-8.2)
[2019-06-11] MEDS: GABAPENTIN 400 MG CAPSULE PO SCH (05:41)
[2019-06-11] MEDS: HEPARIN SOD (PORCINE) 5,000 UNIT/ML 1 ML VIAL SUBCUT SCH (05:41)
[2019-06-11] MEDS: NORMAL SALINE 1000 ML 1,000 ML IV PRN (05:41)
[2019-06-11] MEDS: ALBUTEROL SULFATE 0.083% NEB 2.5 MG/3 ML AMPUL NEB SCH (08:32)
[2019-06-11] MEDS ORDERED: (PENDING PHARMACY ID) (Citalopram Hydrobromide [Celexa 40 Mg Tablet] 40 MG) PO SCH (10:00)
[2019-06-11] MEDS ORDERED: ARIPIPRAZOLE 5 MG TABLET PO SCH (10:00)
[2019-06-11] MEDS ORDERED: ISOSORBIDE MONONITRATE 30 MG TAB.ER.24H PO SCH (10:00)
[2019-06-11] MEDS ORDERED: LOSARTAN POTASSIUM 50 MG TABLET PO SCH (10:00)
[2019-06-11] MEDS ORDERED: (PENDING PHARMACY ID) (Aripiprazole [Abilify 10 Mg Tablet] 10 MG) PO SCH (10:00)
[2019-06-11] MEDS ORDERED: METOPROLOL SUCCINATE 25 MG TAB.SR.24H PO SCH (10:00)
[2019-06-11] MEDS ORDERED: CEFTRIAXONE 1 GM/D5W RTU 1 GM/50 ML RTUPB IV SCH (10:00)
[2019-06-11] MEDS ORDERED: (PENDING PHARMACY ID) (Umeclidinium Brm/Vilanterol Tr [Anoro Ellipta 62.5-25 Mcg Inh] 1 PU IH SCH (10:00)
[2019-06-11] MEDS ORDERED: (PENDING PHARMACY ID) (Ramelteon [Rozerem] 8 MG) PO SCH (10:00)
[2019-06-11] MEDS ORDERED: CITALOPRAM HYDROBROMIDE 20 MG TABLET PO SCH (10:00)
[2019-06-11] MEDS: PANTOPRAZOLE SODIUM 20 MG TABLET.DR PO SCH (11:03)
[2019-06-11] MEDS: OXCARBAZEPINE 150 MG TABLET PO SCH (11:03)
[2019-06-11] MEDS: OMEGA-3 ACID ETHYL ESTERS 1 GM CAPSULE PO SCH (11:03)
[2019-06-11] MEDS: GUAIFENESIN 600 MG TABLET.SA PO SCH (11:03)
[2019-06-11] MEDS: METFORMIN HCL 500 MG TABLET PO SCH (11:03)
[2019-06-11] MEDS: FAMOTIDINE 20 MG TABLET PO SCH (11:04)
[2019-06-11 14:34] VITALS: BP 132/78
[2019-06-11 20:23] LABS: C DIFFICILE GDH NEGATIVE (NEGATIVE)
--- NOTE | 2019-06-12 12:24 | PDOC DISCHARGE SUMMARY ---
Impression - Admit/DC Date/PCP Admission Date/Primary Care Provider: 06/10/19 14:44 ANGEL DOWNING Discharge Date: 06/11/19 - Discharge Diagnosis (1) Diarrhea Is this a current diagnosis for this admission?: Yes (2) Hypotension Is this a current diagnosis for this admission?: Yes (3) COPD (chronic obstructive pulmonary disease) Is this a current diagnosis for this admission?: Yes (4) Hypercholesteremia Is this a current diagnosis for this admission?: Yes (5) KEARA (obstructive sleep apnea) Is this a current diagnosis for this admission?: Yes (6) Obesity (BMI 30.0-34.9) Is this a current diagnosis for this admission?: Yes (7) Pneumonia Is this a current diagnosis for this admission?: Yes (8) Tobacco dependence Is this a current diagnosis for this admission?: Yes (9) Coronary artery disease Is this a current diagnosis for this admission?: Yes - Additional Information Resuscitation Status: Full Code Discharge Diet: As Tolerated Discharge Activity: Activity As Tolerated Referrals: ROBERTO MELGAR FNP-C [Primary Care Provider] - 06/21/19 11:30 am Prescriptions: Amox Tr/Potassium Clavulanate [Augmentin 875-125 mg Tablet] 1 tab PO BID 3 Days #6 tablet Home Medications: Aripiprazole [Abilify 10 mg Tablet] 10 mg PO DAILY 06/10/19 Citalopram Hydrobromide [Celexa 40 mg Tablet] 40 mg PO DAILY 06/10/19 Gabapentin 800 mg PO Q8 06/10/19 Isosorbide Mononitrate [Imdur 30 mg Tablet.er] 30 mg PO DAILY 06/10/19 Losartan Potassium [Cozaar 100 mg Tablet] 100 mg PO DAILY 06/10/19 Metformin HCl [Glucophage 500 mg Tablet] 500 mg PO BID 06/10/19 Metoprolol Succinate [Toprol Xl 25 mg Tab.sr] 25 mg PO DAILY 06/10/19 [place]-3 Fatty Acids [[place]-3] 1,000 mg PO QID 06/10/19 Omeprazole Magnesium [Prilosec Otc] 20 mg PO BID 06/10/19 Oxcarbazepine [Trileptal] 300 mg PO Q12 06/10/19 Oxycodone HCl/Acetaminophen [Percocet 10-325 mg Tablet] 1 tab PO Q6HP PRN 06/10/19 Ramelteon [Rozerem] 8 mg PO DAILY 06/10/19 Trazodone HCl [Desyrel] 300 mg PO QHS 06/10/19 Umeclidinium Brm/Vilanterol Tr [Anoro Ellipta 62.5-25 Mcg INH] 1 puff IH DAILY 06/10/19 Amox Tr/Potassium Clavulanate [Augmentin 875-125 mg Tablet] 1 tab PO BID 3 Days #6 tablet 06/11/19 History of Present Illiness History of Present Illness: JEISON YAP JR is a 54 year old male past medical history of CAD, CKD, hyperlipidemia, hypertension, KEARA, COPD who was recently discharged on 04/04/2019 from [facility] after being treated for pneumonia. Patient presented to ED today sent from his PCP office for evaluation of low BPs. Noted to have systolic blood pressures in the 70s and was complaining of feeling dizzy. Patient is stating that he has developed nonbloody diarrhea for the last 10 days, having about 4-5 bowel movements every day. He also developed productive cough associated with pleuritic chest pain and night sweats for the last 3 to 4 days. Denies any recent travel, sick contact, recent hospitalization or any antibiotic exposure. Denies any shortness of breath, nausea, vomiting, abdominal pain, headache, orthopnea, paroxysmal nocturnal dyspnea, lower extremity swelling, any urinary symptoms. Hospital Course Hospital Course: (1) Diarrhea Likely viral. Resolved. On admission was complaining of watery diarrhea for the last 10 days. Denied any abdominal pain, nausea, vomiting. Afebrile. WBC 11,000 on admission, 8000 the following day. Denied any sick contacts or recent travel. Cultures remain negative. Was a started on resuscitation, monitor electrolytes and replace as needed Stool WBC, Gram stain ova and parasite pending at the time of dictation. (2) Hypotension Resolved this mostly due to hypovolemia caused by underlying diarrhea. Presented with hypotension on admission. Troponins negative. proBNP WNL. EKG WNL. Started on volume restriction guided by volume status. (3) COPD (chronic obstructive pulmonary disease) Did not seem to be acutely exacerbated. No wheezing on physical examination. SPO2 WNL on RA. History of non-oxygen dependent COPD. Current smoker. Started on PRN DuoNeb's, PRN BiPAP. (4) Hypercholesteremia Restarted home meds. Diet and lifestyle modification recommended. (5) KEARA (obstructive sleep apnea) Nocturnal CPAP. Outpatient PCP and pulmonology follow-up. (6) Obesity (BMI 30.0-34.9) TSH 2.5 on 06/25/2016. Obtain new TSH. Diet and lifestyle modification recommended. (7) Pneumonia Pneumonia VS bronchitis. Chest x-ray no acute abnormalities. Mild leukocytosis with no bandemia which resolved the next day. Started on empiric IV ceftriaxone. Was discharged on levofloxacin to complete 5 days. (8) Tobacco dependence Advised on quitting. NicoDerm patch provided. (9) Coronary artery disease Denied any anginal symptoms. Restarted antiplatelets, statins, beta-oscar and HAILEY. Physical Exam Vital Signs: Temp Pulse Resp BP Pulse Ox 98.3 F 91 18 132/78 H 92 06/11/19 14:28 06/11/19 14:28 06/11/19 14:28 06/11/19 14:28 06/11/19 14:28 Intake & Output 06/11/19 06/12/19 06/13/19 06:59 06:59 06:59 Intake Total 2430 Output Total 1850 Balance 580 Weight 97.4 kg General appearance: PRESENT: obese Head exam: PRESENT: atraumatic, normocephalic Respiratory exam: PRESENT: clear to auscultation mendel. ABSENT: rales, rhonchi, wheezes Cardiovascular exam: PRESENT: RRR. ABSENT: diastolic murmur, rubs, systolic murmur GI/Abdominal exam: PRESENT: normal bowel sounds, soft. ABSENT: distended, guarding, mass, organolmegaly, rebound, tenderness Neurological exam: PRESENT: alert, awake, oriented to person, oriented to place, oriented to time, oriented to situation, CN II-XII grossly intact. ABSENT: motor sensory deficit Results Laboratory Results: WBC 8.8 10^3/uL (4.0-10.5) 06/11/19 03:47 RBC 4.47 10^6/uL (4.35-5.55) 06/11/19 03:47 Hgb 14.7 g/dL (13.5-17.0) 06/11/19 03:47 Hct 42.1 % (37.9-51.0) 06/11/19 03:47 MCV 94 fl (80-97) 06/11/19 03:47 MCH 32.8 pg (27.0-33.4) 06/11/19 03:47 MCHC 34.8 g/dL (32.0-36.0) 06/11/19 03:47 RDW 14.2 % (11.5-14.0) H 06/11/19 03:47 Plt Count 158 10^3/uL (150-450) 06/11/19 03:47 Lymph % (Auto) 18.3 % (13-45) 06/11/19 03:47 [place] % (Auto) 5.2 % (3-13) 06/11/19 03:47 Eos % (Auto) 1.5 % (0-6) 06/11/19 03:47 Baso % (Auto) 0.6 % (0-2) 06/11/19 03:47 Absolute Neuts (auto) 6.6 10^3/uL (1.7-8.2) 06/11/19 03:47 Absolute Lymphs (auto) 1.6 10^3/uL (0.5-4.7) 06/11/19 03:47 Absolute Monos (auto) 0.5 10^3/uL (0.1-1.4) 06/11/19 03:47 Absolute Eos (auto) 0.1 10^3/uL (0.0-0.6) 06/11/19 03:47 Absolute Basos (auto) 0.0 10^3/uL (0.0-0.2) 06/11/19 03:47 Seg Neutrophils % 74.4 % (42-78) 06/11/19 03:47 Sodium 142.4 mmol/L (137-145) 06/11/19 03:47 Potassium 3.7 mmol/L (3.6-5.0) 06/11/19 03:47 Chloride 104 mmol/L (98-107) 06/11/19 03:47 Carbon Dioxide 30 mmol/L (22-30) 06/11/19 03:47 Anion Gap 8 (5-19) 06/11/19 03:47 BUN 12 mg/dL (7-20) 06/11/19 03:47 Creatinine 0.79 mg/dL (0.52-1.25) 06/11/19 03:47 Est GFR ( Amer) > 60 (>60) 06/11/19 03:47 Est GFR (MDRD) Non-Af > 60 (>60) 06/11/19 03:47 Glucose 118 mg/dL (75-110) H 06/11/19 03:47 Lactic Acid 2.0 mmol/L (0.7-2.1) 06/10/19 11:13 Calcium 9.1 mg/dL (8.4-10.2) 06/11/19 03:47 Total Bilirubin 0.4 mg/dL (0.2-1.3) 06/11/19 03:47 Direct Bilirubin 0.3 mg/dL (0.0-0.4) 06/11/19 03:47 Neonat Total Bilirubin Not Reportable 06/11/19 03:47 Neonat Direct Bilirubin Not Reportable 06/11/19 03:47 Neonat Indirect Bili Not Reportable 06/11/19 03:47 AST 19 U/L (17-59) 06/11/19 03:47 ALT 18 U/L (<50) 06/11/19 03:47 Alkaline Phosphatase 110 U/L (38-126) 06/11/19 03:47 Creatine Kinase 72 U/L (55-170) 06/10/19 11:13 CK-MB (CK-2) 0.62 ng/mL (<4.55) 06/10/19 11:13 Troponin I < 0.012 ng/mL 06/10/19 11:13 Total Protein 6.7 g/dL (6.3-8.2) 06/11/19 03:47 Albumin 3.6 g/dL (3.5-5.0) 06/11/19 03:47 Urine Color YELLOW 06/10/19 13:30 Urine Appearance CLEAR 06/10/19 13:30 Urine pH 6.0 (5.0-9.0) 06/10/19 13:30 Ur Specific [place] 1.006 06/10/19 13:30 Urine Protein NEGATIVE mg/dL (NEGATIVE) 06/10/19 13:30 Urine Glucose (UA) NEGATIVE mg/dL (NEGATIVE) 06/10/19 13:30 Urine Ketones NEGATIVE mg/dL (NEGATIVE) 06/10/19 13:30 Urine Blood NEGATIVE (NEGATIVE) 06/10/19 13:30 Urine Nitrite NEGATIVE (NEGATIVE) 06/10/19 13:30 Urine Bilirubin NEGATIVE (NEGATIVE) 06/10/19 13:30 Urine Urobilinogen NEGATIVE mg/dL (<2.0) 06/10/19 13:30 Ur Leukocyte Esterase NEGATIVE (NEGATIVE) 06/10/19 13:30 Urine WBC (Auto) 0 /HPF 06/10/19 13:30 Urine RBC (Auto) 0 /HPF 06/10/19 13:30 U Hyaline Cast (Auto) 1 /LPF 06/10/19 13:30 Squamous Epi Cells Auto <1 /HPF 06/10/19 13:30 Urine Mucus (Auto) RARE /LPF 06/10/19 13:30 Urine Ascorbic Acid NEGATIVE (NEGATIVE) 06/10/19 13:30 Stl C. Difficile GDH Ag NEGATIVE (NEGATIVE) 06/11/19 14:20 Stl C.difficile Tox A&B NEGATIVE (NEGATIVE) 06/11/19 14:20 06/10/19 11:13 CK-MB (CK-2) 0.62 Troponin I < 0.012 Impressions: Chest X-Ray 06/10/19 00:00 IMPRESSION: NO ACUTE RADIOGRAPHIC FINDING IN THE CHEST. Chest X-Ray 06/10/19 14:23 IMPRESSION: NO SIGNIFICANT RADIOGRAPHIC FINDING IN THE CHEST. Stroke Is this a Stroke Patient?: No Acute Heart Failure - Is this a Heart Failure Patient?: No
== END 2019-06-11 16:10 | disposition home or self-care (01) ==
LOC: ER 10:45 → EH 14:44 → INTOOBSV 14:44 → 4N 19:15
PROVIDERS: ADMIT Internal Medicine; ATTEND Internal Medicine
DX: R19.7 Diarrhea, unspecified (principal); I95.89 Other hypotension; E86.1 Hypovolemia; J44.9 Chronic obstructive pulmonary disease, unspecified; E78.00 Pure hypercholesterolemia, unspecified; G47.33 Obstructive sleep apnea (adult) (pediatric); E66.9 Obesity, unspecified; J18.9 Pneumonia, unspecified organism; F17.200 Nicotine dependence, unspecified, uncomplicated; I25.10 Atherosclerotic heart disease of native coronary artery without angina pectoris; I12.9 Hypertensive chronic kidney disease with stage 1 through stage 4 chronic kidney disease, or unspecified chronic kidney disease; E11.22 Type 2 diabetes mellitus with diabetic chronic kidney disease; N18.9 Chronic kidney disease, unspecified; Z79.899 Other long term (current) drug therapy; Z79.84 Long term (current) use of oral hypoglycemic drugs; Z68.34 Body mass index [BMI] 34.0-34.9, adult; Z90.49 Acquired absence of other specified parts of digestive tract; Z98.890 Other specified postprocedural states; Z82.49 Family history of ischemic heart disease and other diseases of the circulatory system
CPT/HCPCS: 93005; 99285; 96365; 96368; 36415 ×2; 87040; 87045; 87209; 82553; 82550; 83605; 87177; 85025 ×2; 80053 ×2; 81001; 84484; 87324; 87449; 71045; 93010; 94640; G0378 ×3; J1644 ×2; A9270 ×23; J7030 ×2; J7120; J0456; J0696 ×2; 87205; J3490; J7620

== ENCOUNTER → 2019-11-20 | Outpatient (CLI) | payer MEDICARE ==
--- NOTE | 2019-11-20 14:17 | RADIOLOGY REPORT (SQ) ---
EXAM DESCRIPTION: CT CHEST WITHOUT IMAGES COMPLETED DATE/TIME: 11/20/2019 10:05 am REASON FOR STUDY: (R91.1)SOLITARY PULMONARY NODULE R91.1 SOLITARY PULMONARY NODULE J43.9 EMPHYSEMA , UNSPECIFIED COMPARISON: 04/01/2019 TECHNIQUE: CT scan performed of the chest without intravenous contrast. Images reviewed with lung, soft tissue and bone windows. Reconstructed coronal and sagittal MPR images reviewed. All images st ored on PACS. All CT scanners at this facility use dose modulation, iterative reconstruction, and/or weight based d osing when appropriate to reduce radiation dose to as low as reasonably achievable (ALARA). [facility]: Dose Right [facility]: CareDose [facility]: Dose Right [facility]: Teradose 4D [facility]: Smart Technologies RADIATION DOSE: CT Rad equipment meets quality standard of care and radiation dose reduction techniq ues were employed. CTDIvol: 15.3 mGy. DLP: 634 mGy-cm. mGy. LIMITATIONS: No technical limitations. FINDINGS: LUNGS AND PLEURA: Mild centrilobular emphysematous changes predominantly affecting the api cathie. Incidental note is made of a scattered calcified granulomas. There is an 4 x 3 x 3 mm subpleur al pulmonary nodule within the right upper lobe (series 4 image 37). . No masses, infiltrates, or p neumothorax. No pleural effusions or pleural calcifications. HILAR AND MEDIASTINAL STRUCTURES: No identified masses or abnormal nodes. No obvious aneurysm. HEART AND VASCULAR STRUCTURES: No aneurysm. Trace pericardial fluid. Coronary artery calcifications are demonstrated. UPPER ABDOMEN: Limited exam. Nonobstructing left-sided nephroliths. status post cholecystectomy. A ortic stent. No acute findings. THYROID AND OTHER SOFT TISSUES: No masses. No adenopathy. BONES: No significant finding. HARDWARE: None in the chest. OTHER: No other significant findings. IMPRESSION: No evidence of acute cardiopulmonary abnormality. Mild centrilobular emphysematous weiner ges. 4 x 3 x 3 mm pulmonary nodule ; recommend risk stratification. In the low risk patient, no fur ther follow-up imaging is required. In a high risk patient, consider repeat CT imaging in 12 months. TECHNICAL DOCUMENTATION: JOB ID: [id number] Quality ID # [id number]: Final reports with documentation of one or more dose reduction techniques (e.g., Au tomated exposure control, adjustment of the mA and/or kV according to patient size, use of iterative reconstruction technique) 2010 [email or web address]- All Rights Reserved Reading location - IP/workstation name: [email or web address]
== END ==
LOC: RAD 09:48
PROVIDERS: ATTEND Internal Medicine Critical Care Medicine
DX: R91.1 Solitary pulmonary nodule (principal); J43.9 Emphysema, unspecified
CPT/HCPCS: 71250

== ENCOUNTER 2020-05-10 07:06 | Day surgery (SDC) | payer MEDICARE, MEDICAID ==
[~2020-05-10 07:06] MED LIST: FENTANYL CITRATE INJ/PF 100 MCG/2 ML AMPUL ONE; KETOROLAC TROMETHAMINE 0.45% 4 DROP/0.4 ML DROPERETTE OD PRN; MIDAZOLAM 2 MG/2 ML INJ ONE; ONDANSETRON HCL INJ/PF 4 MG/2 ML SDV ONE
[2020-05-10] MEDS ORDERED: EPINEPHRINE INJ/PF 1 MG/1 ML AMPULE ONE ×2 (07:16→07:20)
[2020-05-10] MEDS ORDERED: LIDOCAINE 1%/PHENYLEPHRINE 1.5% 1 ML VIAL ONE ×2 (07:16→07:20)
[2020-05-10] MEDS ORDERED: CHONDR SU A NA/HYALUR INTRAOC KIT (SURGICARE) ONE ×2 (07:17→07:20)
[2020-05-10] MEDS: CYCLOPENTOLATE 0.2%/PHENYLEPHRINE 1% OPH SOLN 2 ML OD PRN ×3 (07:38→07:58)
[2020-05-10] MEDS: TROPICAMIDE 1% OPH SOLN 15 ML OD PRN ×3 (07:38→07:58)
[2020-05-10] MEDS: BESIFLOXACIN HCL 0.6% OPH SUSP 5 ML BOTTLE OD PRN ×4 (07:38→08:28)
[2020-05-10] MEDS: TETRACAINE HCL 0.5% OPH SOLN 4 ML OD PRN ×3 (07:39→08:11)
[2020-05-10] MEDS: DORZOLAMIDE HCL 2%/TIMOLOL MALEAT 0.5% OPH SOLN 10 ML OD PRN ×2 (08:28)
[2020-05-10] MEDS: PREDNISOLONE ACETATE 1% OPH SUSP 5 ML OD PRN ×2 (08:28)
--- NOTE | 2020-05-10 13:10 | Operative Report ---
Operative Report-[facility] Operative Report: DATE OF SURGERY: May 10, 2020 PREOPERATIVE DIAGNOSIS: NUCLEAR CATARACT, RIGHT EYE. POSTOPERATIVE DIAGNOSIS: NUCLEAR CATARACT, RIGHT EYE. PROCEDURE PERFORMED: PHACOEMULSIFICATION WITH POSTERIOR CHAMBER INTRAOCULAR LENS IMPLANT, RIGHT EYE. SURGEON: Jamie Jacobson DO MEDICATIONS AND ANESTHESIA: Versed: IV Versed Tetracaine drops: 1 to 2 drops given as needed COMPLICATION: None INDICATIONS FOR SURGERY: Medical necessity: Best corrected visual acuity worse than 20/40 secondary to cataracts with impairment of ability to carry out needs or desired activities, blurred vision, visual distortion, reduced contrast sensitivity and/or glare with association functional impairment and supporting documentation/testing, and cataracts causing symptomatic impairment of visual functions not corrected with tolerable changes in glasses or contact lenses interfering with activities of daily life. PROCEDURE: Consent: The risks, benefits and alternatives of this procedures was discussed with the patient. The patient read and signed the consent forms, was identified and was seated in the exam chair. IOL: MX 60 E 21.0 IOL Diopters: Phacoemulsification with posterior chamber intraocular lens implant: The face was prepped with 5% povidone iodine solution, and a few drops of 5% povidone iodine solution was instilled into the inferior fornix. A non-fenestrated drape was placed over the eye and the lids were parted with the speculum. A paracentesis was made with a 15 degree blade, and 1% lidocaine MPF followed by viscoelastic was injected into the anterior chamber. A 2.4 mm metal micro- keratome was used to create a temporal clear corneal incision. A circular anterior capsulorrhexis was created, followed by hydro-dissection and hydro- delineation. The phacoemulsification hand piece was inserted and the nucleus was removed with the Phaco chop technique. The irrigation-aspiration hand piece was used to remove the residual cortex, and vacuum the posterior capsule. The capsular bag was inflated and viscoelastic and the above-mentioned IOL was injected into the eye with care to insert both leaning and trailing haptics in the capsular bag. The irrigation/aspiration hand piece was reinserted to remove residual viscoelastic from the capsular bag and anterior chamber. The corneal incision was hydrated, and anterior chamber was inflated with sterile BSS via the paracentesis site, and found to be watertight. Postop medication: 1 drop of prednisolone into operative by followed by 1 drop of Cosopt into operative eye followed by 1 drop of Besivance intraoperative by other:
== END 2020-05-10 09:00 ==
LOC: SC 07:06
PROVIDERS: ATTEND Ophthalmology
DX: H25.11 Age-related nuclear cataract, right eye (principal); F41.9 Anxiety disorder, unspecified; M19.90 Unspecified osteoarthritis, unspecified site; J44.9 Chronic obstructive pulmonary disease, unspecified; F32.9 Major depressive disorder, single episode, unspecified; E11.36 Type 2 diabetes mellitus with diabetic cataract; K21.9 Gastro-esophageal reflux disease without esophagitis; I10 Essential (primary) hypertension; E78.00 Pure hypercholesterolemia, unspecified; Z79.82 Long term (current) use of aspirin; Z79.84 Long term (current) use of oral hypoglycemic drugs; F17.210 Nicotine dependence, cigarettes, uncomplicated; G47.33 Obstructive sleep apnea (adult) (pediatric); I25.10 Atherosclerotic heart disease of native coronary artery without angina pectoris; I25.2 Old myocardial infarction
CPT/HCPCS: 66984; 82962; V2632; J2250; J3490 ×2; A9270; J0171; J2405; J3010

== ENCOUNTER 2020-05-11 22:42 | Emergency (ER) | payer MEDICARE, MEDICAID ==
[2020-05-11] MEDS ORDERED: LIDOCAINE 1% INJ-PF (10 MG/ML) 30 ML SDV INJ ONE (23:09)
[2020-05-11] MEDS ORDERED: DIPH/PERTUSS(ACELL)/TETANUS VAC/PF 0.5 ML SYR (>=10YO) IM ONE (23:09)
[2020-05-11] MEDS ORDERED: ACETAMINOPHEN 325 MG TABLET PO ONE (23:09)
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
--- NOTE | 2020-05-12 00:02 | RADIOLOGY REPORT (SQ) ---
Left knee radiographs: 05/11/2020 11:00 PM [employer] MEASURER HISTORY: 55-year-old patient with left knee pain. TECHNIQUE: AP, right and left oblique, and lateral images of the left knee were obtained. COMPARISON: None available FINDINGS: There are no findings to suggest an acute fracture or subluxation. No suprapatellar joint effusion is seen. The visualized soft tissues are grossly unremarkable. No gross erosions or abnormal soft tissue calcifications are seen. There is mild tricompartmental joint space narrowing with marginal osteophyte formation present. IMPRESSION: There are no findings to suggest an acute fracture or subluxation within the left knee.
[2020-05-12] MEDS ORDERED: LIDOCAINE 1% INJ-PF (10 MG/ML) 30 ML SDV INJ ONE (00:45)
[2020-05-12] MEDS ORDERED: DIPH/PERTUSS(ACELL)/TETANUS VAC/PF 0.5 ML SYR (>=10YO) IM ONE (00:45)
[2020-05-12] MEDS ORDERED: ACETAMINOPHEN 325 MG TABLET PO ONE (00:45)
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
[2020-05-12 03:35] VITALS: BP 139/82
== END 2020-05-12 03:35 | disposition home or self-care (01) ==
LOC: ER 22:42
DX: S41.112A Laceration without foreign body of left upper arm, initial encounter (principal); S62.339A Displaced fracture of neck of unspecified metacarpal bone, initial encounter for closed fracture; S09.90XA Unspecified injury of head, initial encounter; H57.13 Ocular pain, bilateral; M79.641 Pain in right hand; M25.562 Pain in left knee; M79.632 Pain in left forearm; Y04.0XXA Assault by unarmed brawl or fight, initial encounter; Z88.8 Allergy status to other drugs, medicaments and biological substances; I10 Essential (primary) hypertension; E78.5 Hyperlipidemia, unspecified; E11.9 Type 2 diabetes mellitus without complications; Z79.899 Other long term (current) drug therapy; Z79.84 Long term (current) use of oral hypoglycemic drugs; F17.200 Nicotine dependence, unspecified, uncomplicated; I25.10 Atherosclerotic heart disease of native coronary artery without angina pectoris; J44.9 Chronic obstructive pulmonary disease, unspecified
CPT/HCPCS: 12002; 29125; 99285; 96372; 73090; 73130; 73564; 70450; 72125; 90715; A9270; J3490

== ENCOUNTER 2020-05-24 06:34 | Day surgery (SDC) | payer MEDICARE, MEDICAID ==
[~2020-05-24 06:34] MED LIST changes: -FENTANYL CITRATE INJ/PF 100 MCG/2 ML AMPUL ONE; -KETOROLAC TROMETHAMINE 0.45% 4 DROP/0.4 ML DROPERETTE OD PRN; +KETOROLAC TROMETHAMINE 0.45% 4 DROP/0.4 ML DROPERETTE OS PRN; -MIDAZOLAM 2 MG/2 ML INJ ONE; -ONDANSETRON HCL INJ/PF 4 MG/2 ML SDV ONE
[2020-05-24] MEDS: TETRACAINE HCL 0.5% OPH SOLN 4 ML OS PRN ×4 (06:50→07:38)
[2020-05-24] MEDS: TROPICAMIDE 1% OPH SOLN 15 ML OS PRN ×3 (06:50→07:10)
[2020-05-24] MEDS: BESIFLOXACIN HCL 0.6% OPH SUSP 5 ML BOTTLE OS PRN ×4 (06:50→07:45)
[2020-05-24] MEDS: CYCLOPENTOLATE 0.2%/PHENYLEPHRINE 1% OPH SOLN 2 ML OS PRN ×3 (06:50→07:10)
[2020-05-24] MEDS ORDERED: FENTANYL CITRATE INJ/PF 100 MCG/2 ML AMPUL ONE (07:03)
[2020-05-24] MEDS ORDERED: MIDAZOLAM 2 MG/2 ML INJ ONE (07:03)
[2020-05-24] MEDS ORDERED: DEXMEDETOMIDINE INJ 80 MCG/20 ML VIAL IV ONE (07:05)
[2020-05-24] MEDS ORDERED: EPINEPHRINE INJ/PF 1 MG/1 ML AMPULE ONE (07:07)
[2020-05-24] MEDS ORDERED: LIDOCAINE 1%/PHENYLEPHRINE 1.5% 1 ML VIAL ONE (07:08)
[2020-05-24] MEDS ORDERED: CHONDR SU A NA/HYALUR INTRAOC KIT (SURGICARE) ONE (07:09)
[2020-05-24] MEDS: DORZOLAMIDE HCL 2%/TIMOLOL MALEAT 0.5% OPH SOLN 10 ML OS PRN ×2 (07:45)
[2020-05-24] MEDS: PREDNISOLONE ACETATE 1% OPH SUSP 5 ML OS PRN ×2 (07:45)
--- NOTE | 2020-05-24 11:59 | Operative Report ---
Operative Report-[facility] Operative Report: DATE OF SURGERY: May 24, 2020 PREOPERATIVE DIAGNOSIS: NUCLEAR CATARACT, LEFT EYE. POSTOPERATIVE DIAGNOSIS: NUCLEAR CATARACT, LEFT EYE. PROCEDURE PERFORMED: PHACOEMULSIFICATION WITH POSTERIOR CHAMBER INTRAOCULAR LENS IMPLANT, LEFT EYE. SURGEON: Jamie Jacobson DO MEDICATIONS AND ANESTHESIA: Versed: IV Versed Tetracaine drops: 1 to 2 drops given as needed COMPLICATION: None INDICATIONS FOR SURGERY: Medical necessity: Best corrected visual acuity worse than 20/40 secondary to cataracts with impairment of ability to carry out needs or desired activities, blurred vision, visual distortion, reduced contrast sensitivity and/or glare with association functional impairment and supporting documentation/testing, and cataracts causing symptomatic impairment of visual functions not corrected with tolerable changes in glasses or contact lenses interfering with activities of daily life. PROCEDURE: Consent: The risks, benefits and alternatives of this procedures was discussed with the patient. The patient read and signed the consent forms, was identified and was seated in the exam chair. IOL: MX 60 E 21.0 IOL Diopters: Phacoemulsification with posterior chamber intraocular lens implant: The face was prepped with 5% povidone iodine solution, and a few drops of 5% povidone iodine solution was instilled into the inferior fornix. A non-fenestrated drape was placed over the eye and the lids were parted with the speculum. A paracentesis was made with a 15 degree blade, and 1% lidocaine MPF followed by viscoelastic was injected into the anterior chamber. A 2.4 mm metal micro- keratome was used to create a temporal clear corneal incision. A circular anterior capsulorrhexis was created, followed by hydro-dissection and hydro- delineation. The phacoemulsification hand piece was inserted and the nucleus was removed with the Phaco chop technique. The irrigation-aspiration hand piece was used to remove the residual cortex, and vacuum the posterior capsule. The capsular bag was inflated and viscoelastic and the above-mentioned IOL was injected into the eye with care to insert both leaning and trailing haptics in the capsular bag. The irrigation/aspiration hand piece was reinserted to remove residual viscoelastic from the capsular bag and anterior chamber. The corneal incision was hydrated, and anterior chamber was inflated with sterile BSS via the paracentesis site, and found to be watertight. Postop medication:1 drop of prednisolone into operative by followed by 1 drop of Cosopt into operative eye followed by 1 drop of Besivance intraoperative by Other:
== END 2020-05-24 08:20 | disposition home or self-care (01) ==
LOC: SC 06:34
PROVIDERS: ATTEND Ophthalmology
DX: H25.12 Age-related nuclear cataract, left eye (principal); Z98.41 Cataract extraction status, right eye; F41.9 Anxiety disorder, unspecified; M19.90 Unspecified osteoarthritis, unspecified site; J44.9 Chronic obstructive pulmonary disease, unspecified; F32.9 Major depressive disorder, single episode, unspecified; E11.36 Type 2 diabetes mellitus with diabetic cataract; K21.9 Gastro-esophageal reflux disease without esophagitis; I10 Essential (primary) hypertension; E78.00 Pure hypercholesterolemia, unspecified; Z79.84 Long term (current) use of oral hypoglycemic drugs; Z79.82 Long term (current) use of aspirin; G47.33 Obstructive sleep apnea (adult) (pediatric); F17.210 Nicotine dependence, cigarettes, uncomplicated
CPT/HCPCS: 66984; 82962; V2632; J2250; J3490 ×3; A9270; J0171; J3010

== ENCOUNTER → 2020-06-15 | Outpatient (CLI) | payer MEDICARE, MEDICAID ==
--- NOTE | 2020-06-15 14:32 | RADIOLOGY REPORT (SQ) ---
EXAM DESCRIPTION: CT ABD/PELVIS NO ORAL OR IV IMAGES COMPLETED DATE/TIME: 06/15/2020 10:34 am REASON FOR STUDY: (N20.0)CALCULUS OF KIDNEY N20.0 CALCULUS OF KIDNEY COMPARISON: 11/24/2017 TECHNIQUE: CT scan of the abdomen and pelvis performed without intravenous or oral contrast. Images reviewed with lung, soft tissue, and bone windows. Reconstructed coronal and sagittal MPR images revi ewed. All images stored on PACS. All CT scanners at this facility use dose modulation, iterative reconstruction, and/or weight based d osing when appropriate to reduce radiation dose to as low as reasonably achievable (ALARA). [facility]: Dose Right [facility]: CareDose [facility]: Dose Right [facility]: Teradose 4D [facility]: Smart eWave Interactive RADIATION DOSE: CT Rad equipment meets quality standard of care and radiation dose reduction techniq ues were employed. CTDIvol: 18.2 mGy. DLP: 990 mGy-cm.mGy. LIMITATIONS: None. FINDINGS: LOWER CHEST: No significant findings. No nodules or infiltrates. NON-CONTRASTED LIVER, SPLEEN, ADRENALS: Evaluation limited by lack of IV contrast. No identified sign ificant masses. PANCREAS: No masses. No peripancreatic inflammatory changes. GALLBLADDER: Surgically absent. RIGHT KIDNEY AND URETER: No suspicious masses. Assessment limited by lack of IV contrast. No signif icant calcifications. No hydronephrosis or hydroureter. LEFT KIDNEY AND URETER: No suspicious masses. Assessment limited by lack of IV contrast. There is a small nonobstructing upper calyceal calculus. No hydronephrosis or hydroureter. AORTA AND RETROPERITONEUM: Unchanged. Aortoiliac endograft remains in place. BOWEL AND PERITONEAL CAVITY: No obvious masses or inflammatory changes. No free fluid. APPENDIX: Normal. PELVIS, BLADDER, AND ABDOMINAL WALL:No abnormal masses. No free fluid. Bladder normal. BONES: No significant findings. OTHER: No other significant finding. IMPRESSION: There is a small nonobstructing left renal calculus. No ureteral stone or obstruction. No acute finding in the abdomen or pelvis. COMMENT: Quality ID # [id number]: Final reports with documentation of one or more dose reduction techniques (e.g., Automated exposure control, adjustment of the mA and/or kV according to patient size, use of iterative reconstruction technique) TECHNICAL DOCUMENTATION: JOB ID: [id number] 2010 [employer]- All Rights Reserved Reading location - IP/workstation name: [email or web address]
== END ==
LOC: RAD 10:21
PROVIDERS: ATTEND Urology
DX: N20.0 Calculus of kidney (principal); R10.9 Unspecified abdominal pain
CPT/HCPCS: 74176